=== PATIENT | female | born 1995 | race Caucasian/White ===

== ENCOUNTER 2024-06-17 14:10 | Outpatient (OUT) | payer OTHER, SELFPAY ==
--- NOTE | 2024-06-17 14:13 | US_ITS ---
[address] [address] Patient Name: CANDIE ESPARZA MRN: [id number] date: 1995 Sex: F Assigned Patient Location: [facility] Current Patient Location: [facility] Accession/Order Number: [id number] Exam Date: 06/17/2024 14:15 Report Date: 06/17/2024 15:10 At the request of: TAMMY OWUSU Procedure: US OB transvaginal EXAMINATION: US OB transvaginal HISTORY: MISSED MENSES COMPARISON: No relevant comparison available. FINDINGS: Diallo intrauterine gestation Gestational sac: 5.6 cm, 11 weeks 5 days CRL: 5.19 cm, 6 days Yolk sac: 6.3 mm Heart rate: 165 beats minute Cervix: Closed, 4.8 cm The uterus is normal, anteverted, anteflexed The ovaries are normal. Left corpus luteal cyst Clinical age: 11 weeks 4 days Clinical [place]: 01/02/2025 Ultrasound age: 11 weeks 6 days Ultrasound [place]: 12/31/2024 US/US OB transvaginal IMPRESSION: Viable diallo intrauterine gestation measuring 11 weeks 6 days Electronically authenticated by: TOM DAVIS Date: 06/17/2024 15:10
== END 2024-06-17 14:11 | disposition home or self-care (01) ==
LOC: NOMS 14:10
PROVIDERS: Visit Provider Obstetrics & Gynecology
DX: Z34.91 Encounter for supervision of normal pregnancy, unspecified, first trimester (principal); Z3A.11 11 weeks gestation of pregnancy; N92.6 Irregular menstruation, unspecified
CPT/HCPCS: 76817

== ENCOUNTER 2024-07-21 19:16 | Outpatient (REF) | payer OTHER, SELFPAY ==
--- OUTSIDE RECORDS SUMMARY | 2024-07-21 19:19 | XMS_ITS | CCD ---
Author Organization [facility] Care Team Providers Care Cab Worker Name Role Phone Unavailable Primary Care Provider Unavailabl e Medications Current Medications Medication Drug Class(es) Dates Sig (Normalized) Sig (Original) chlorhexidine gluconate 1.2 mg/ml mouthwash (2 sources) Start: 01-08-2024 take 15 mL by mouth twice daily chlorhexidine (Peridex) 0.12 % solution SWISH AND SPIT 15ML BY MOUTH TWICE DAILY DIRECTED 01/08/2024 Active Problems Problem Classification Problem Date Documented Da te Episodic/Chronic Menstrual disorders (2 sources) Missed period; Translations: [Irregular menstruation, unspecified] 06-17-2024 Chronic Other and delivery including normal (4 sources) ; Translations: [Encounter for supervision of normal , unspecified, unspecified trimester] 06-17-2024 Episodic Residual codes; unclassified (2 sources) Gestation period, 11 weeks; Translations: [11 weeks gestation of ] 06-17-2024 Episodic Vital Signs Date Time Vital Sign Value Performing Clinician Andrea church 06-17-2024 15:43-0500 Body weight 68.04 kg Herbert Kevin DO Work Phone: [facility] 06-17-2024 15:43-0500 Diastolic blood pressure 72 mm[Hg] Herbert Kevin DO Work Phone: [facility] 06-17-2024 15:43-0500 Systolic blood pressure 118 mm[Hg] Herbert Kevin DO Work Phone: [facility] Encounters Encounter Date Encounter Type Care Provider Facility Start: 06-17-2024 End: 06-17-2024 ambulatory Herbert Kevin DO Work Phone: Not Available Comment on above: GA: 11w4d Plan of Treatment Date Care Activity Detail Author Start: 07-21-2024 End: 07-21-2024 Patient encounter procedure 07/21/2024 3:20 PM EST Routine [facility] [address] [place] [id number] Herbert Brown DO [address] [place] [address] [facility] Start: 06-17-2024 End: 06-17-2025 ABO/Rh ABO/Rh Lab Routine Missed menses , unspecified gestational age Expected: 06/17/2024 (Approximate), Expires: 06/17/2025 [facility] Comment on above: Expected: 06/17/2024 (Approximate), Expires: 06/17/2025 Start: 06-17-2024 End: 06-17-2025 Blood type and Indirect antibody screen panel - Blood Type and screen Lab Routine Missed menses , unspecified gestational age Expected: 06/17/2024 (Approximate), Expires: 06/17/2025 [facility] Work Phone: Comment on above: Expected: 06/17/2024 (Approximate), Expires: 06/17/2025 Start: 06-17-2024 End: 06-17-2025 Drugs of abuse panel - Urine by Screen method Rapid drug screen, urine Lab Routine , unspecified gestational age Encounter for supervision of normal first in first trimester Expected: 06/17/2024 (Approximate), Expires: 06/17/2025 [facility] Comment on above: Expected: 06/17/2024 (Approximate), Expires: 06/17/2025 Start: 06-17-2024 End: 06-17-2025 US Pelvis transvaginal US OB transvaginal Imaging Routine Missed menses Expected: 06/17/2024 (Approximate), Expires: 06/17/2025 [facility] Comment on above: Expected: 06/17/2024 (Approximate), Expires: 06/17/2025 CBC W Auto Different ial panel - Blood CBC and differential Lab Routine Missed menses , unspecified gestational age Ordered: 06/17/2024 [facility] Comment on above: Ordered: 06/17/2024 Hemoglobin A1c/Hemoglobin.total in Blood Hemoglobin A1c Lab Routine Missed menses , unspecified gestational age Ordered: 06/17/2024 [facility] Comment on above: Ordered: 06/17/2024 Hepatitis B virus surface Ag [Presence] in Serum or Plasma by Immunoassay Hepatitis B surface antigen Lab Routine Missed menses , unspecified gestational age Ordered: 06/17/2024 [facility] Comment on above: Ordered: 06/17/2024 Hepatitis C virus Ab [Presence] in Serum or Plasma by Immunoassay Hepatitis C antibody Lab Routine Missed menses , unspecified gestational age Ordered: 06/17/2024 [facility] Comment on above: Ordered: 06/17/2024 HIV-1/HIV-2 antigen/antibody combination immunoassay HIV-1 and HIV-2 antibodies Lab Routine Missed menses , unspecified gestational age Ordered: 06/17/2024 [facility] Comment on above: Ordered: 06/17/2024 Reagin Ab [Presence] in Serum by RPR RPR Lab Routine Missed menses , unspecified gestational age Ordered: 06/17/2024 [facility] Comment on above: Ordered: 06/17/2024 Rubella antibody, IgG Rubella an tibody, IgG Lab Routine Missed menses , unspecified gestational age Ordered: 06/17/2024 [facility] Comment on above: Ordered: 06/17/2024 Payers Date Payer Category Payer [facility] Insurance [facility] [id number] 2023 Unknown [id number] 1995 Unknown [id number] Social History Date Type Detail Facility Tobacco smoking stat [facility] Tobacco smoking consumption unknown [facility] Start: 04-11-2024 [facility] Start: 1995 Sex assigned at Female [facility] Start: 06-16-2024 Gender identity Identifies as female gender (finding) [facility] Start: 06-16-2024 Sexual orientation Heterosexual (fin ding) [facility] History of Present illness Narrative 06-17-2024 Whit Bourgeois MA - 06/17/2024 2:30 PM EST Note Date & Type Note Facility 06-17-2024 History of Presen t illness Narrative Reason for Appointment: Patient ID: Vanessa Menon is a 28 y.o. female who presents for Amenorrhea Patient presents today for a Nurse OB Intake appointment. Patient is 11w4d with a Estimated Date of Delivery: 01/02/25 OB History Para Term AB Living 1 SAB IAB Ectopic Multiple Live Births # Outcome Date GA Lbr Josh/2nd Weight Sex Type Anes PTL Lv 1 Current Current Medications: has a current medication list which includes the following prescription(s): chlorhexidine. Medical History: Active Ambulatory Problems Diagnosis Date Noted No Active Ambulatory Problems Resolved Ambulatory Problems Diagnosis Date Noted No Resolved Ambulatory Problems No Additional Past Medical History No family history on file. Social History Tobacco Use Smoking status: Not on file Smokeless tobacco: Not on file Substance Use Topics Alcohol use: Not on file Drug use: Not on file History reviewed. No pertinent surgical history. No Known Allergies Vitals: There is no height or weight on file to calculate BMI. BP: 118/72 Patient's last menstrual period was 03/28/2024. Assessment/Plan Diagnoses and all orders for this visit: Missed menses - Type and screen; Future - ABO/Rh; Future - CBC and differential - Hemoglobin A1c - RPR - Rubella antibody, IgG - Hepatitis B surface antigen - Hepatitis C antibody - HIV-1 and HIV-2 antibodies - Urine culture - OB transvaginal; Future - POCT , urine manually resulted - POCT urinalysis dipstick manually resulted 11 weeks gestation of , unspecified gestational age - Type and screen; Future - ABO/Rh; Future - CBC and differential - Hemoglobin A1c - RPR - Rubella antibody, IgG - Hepatitis B surface antigen - Hepatitis C antibody - HIV-1 and HIV-2 antibodies - Rapid drug screen, urine; Future Encounter for supervision of normal first in first trimester - Rapid drug screen, urine; Future Nurse Note: OB Intake: Patient presents today for first OB visit. Patients history has been reviewed in great detail including any potential risks. Patient signed consent forms and patient desires testing in both trimesters. Patient currently has no complaints and has been advised to drink 6-8 glasses of water a day, eat no raw or undercooked meat, and stay away from [facility]. Patient has also been advised to not change litter boxes and eat 6 small meals a day. Patient has been consulted regarding the do's and don'ts of . Patient was given labs and all questions and concerns were answered. Follow Up: Patient is to return in 4 weeks for routine OB appointment. Follow Up: Patient is to have labs drawn at directed and return to office for initial OB appointment with provider. Patient may call office as needed with any concerns or questions. Nurse Visit Completed by: Whit Bourgeois MA documented in this encounter [facility] Evaluation note Note Date & Type Note Facility Evaluation note Diagnosis Missed menses 11 weeks gestation of , unspecified gestational age Encounter for supervision of normal first in first trimester documented in this encounter [facility] Summary Purpose Family History No Family History Records Found Advance Directives No Advanced Directives Records Found Additional Source Comments INFORMATION SOURCE (unrecogn ized section and content) DATE CREATED AUTHOR 06/21/2024 [facility] Reason for Visit (unrecogniz ed section and content) Reason Comments Amenorrhea FOR RECORDS PERTAINING TO PATIENTS WHO ARE OR HAVE BEEN ENROLLED IN A CHEMICAL DEPENDENCY/SUBSTANCEABUSE PROGRAM, SOME INFORMATION MAY BE OMITTED. This clinical summary was aggregated from multiple sources. Caution should be exercised in using it in the provision of clinical care. This summary normalizes information from multiple sources, and as a consequence, information in this document may materially change the coding, format and clinical context of patient data. In addition, data may be omitted in some cases. CLINICAL DECISIONS SHOULD BE BASED ON THE PRIMARY CLINICAL RECORDS. [facility]. provides no warranty or guarantee of the accuracy or completeness of information in this document.
[2024-07-27 17:07] LABS: Age Gdln ACOG Testing Note (.); IGP, rfx Aptima HPV ASCU Note (.)
== END 2024-07-21 19:17 | disposition home or self-care (01) ==
LOC: LAB 19:16
PROVIDERS: Visit Provider Obstetrics & Gynecology
DX: Z01.419 Encounter for gynecological examination (general) (routine) without abnormal findings (principal)
CPT/HCPCS: 88175

== ENCOUNTER 2024-08-20 15:22 | Outpatient (OUT) | payer OTHER, SELFPAY ==
--- OUTSIDE RECORDS SUMMARY | 2024-08-20 15:26 | XMS_ITS | CCD ---
Author Organization [facility] Care Team Providers Care Forging Die Sinker Name Role Phone Unavailable Primary Care Provider TAMMY Jain Attending Unavailable Medications Completed/Discontinued Medications Medication Drug Class(es) Dates Sig (Normalized) Sig (Original) chlorhexidine gluconate 1.2 mg/ml mouthwash (10 sources) Start: 01-08-2024 End: 08-18-2024 take 15 mL by mouth twice daily chlorhexidine (Peridex) 0.12 % solution SWISH AND SPIT 15ML BY MOUTH TWICE DAILY DIRECTED 01/08/2024 08/18/2024 Discontinued Problems Problem Classification Problem Date Documented Da te Episodic/Chronic Immunizations and screening for infectious disease (2 sources) Exposure to sexually transmissible disorder; Translations: [Contact with and (suspected) exposure to infections with a predominantly sexual mode of transmission] 07-21-2024 Episodic Menstrual disorders (2 sources) Missed period; Translations: [Irregular menstruation, unspecified] 06-17-2024 Chronic Other female genital disorders (2 sources) Vaginal discharge; Translations: [Other specified noninflammatory disorders of vagina] 07-21-2024 Episodic Other and delivery including normal (8 sources) ; Translations: [Encounter for supervision of normal , unspecified, unspecified trimester] 06-17-2024 Episodic Other screening for suspected conditions (not mental disorders or infectious disease) (2 sources) Patient encounter status; Translations: [Encounter for other specified screening] 07-21-2024 Episodic Residual codes; unclassified (2 sources) Gestation period, 11 weeks; Translations: [11 weeks gestation of ] 06-17-2024 Episodic Residual codes; unclassified (2 sources) Gestation period, 16 weeks; Translations: [16 weeks gestation of ] 07-21-2024 Episodic Residual codes; unclassified (2 sources) Gestation period, 20 weeks; Translations: [20 weeks gestation of ] 08-18-2024 Episodic Results Test Name Value Interpretation Reference Range Facility Urinalysis macro (dipstick) panel (U)on 08-18-2024 Bilirubin, UA Negative Negative - 4(70) +++ mg/dL [facility] Blood, UA Negative Negative - 50 Ayaz/mcL [facility] Clarity, UA Clear [facility] re Color, UA Yellow [facility] Gl[facility], [facility] Negative Negative - 1999(110) ++++ mg/dL [facility] Interpretation and review of laboratory results Abnormal [facility] Ketones, UA Positive Negative - 160(16) ++++ mg/dL [facility] Leukocytes, UA Trace Negative - 500+++ Marcell/mcL [facility] Nitrite, UA Negative Negative - Positive [facility] pH, UA 6.5 5 - 9 [facility] e Protein, UA Negative Negative - 1999(20) ++++ mg/dL [facility] Spec Grav, UA 1.025 1 - 1.[address] [facility] Urobilinogen, UA 0.2 0.2 - 12 mg/dL [facility] IGP,APTIMA HPV,AGE GDLNon AGE GDLN ACOG TESTING Note . [facility] Comment on above: TESTS RESULT FLAG UN ITS REF RANGE LAB Clinician Provided Cytology Information Source.............Cervix No. of containers..01 ThinPrep Vial Age Algo ACOG Mari... FLAG LEGEND: L-Low Normal,H-High Normal,LL-Alert Low,HH-Alert High <-Panic Low,>-Panic High,A-Abnormal,AA-Critical Abnormal Performed at: 01 =[facility] [address] [place] [address] Melba Leal MD, IGP, RFX APTIMA HPV ASCU Note . [facility] Comment on above: TESTS RESULT FLAG UN ITS REF RANGE LAB DIAGNOSIS: 02 NEGATIVE FOR INTRAEPITHELIAL LESION OR MALIGNANCY. Specimen adequacy: 02 Satisfactory for evaluation. Endocervical and/or squamous metaplastic cells (endocervical component) are present. Performed by: 02 Imelda Vee, Manager Switch ([facility]) . 02 Note: Note 02 The Pap smear is a screening test designed to aid in the detection of premalignant and malignant conditions of the uterine cervix. It is not a diagnostic procedure and should not be used as the sole means of detecting cervical cancer. Both false-positive and false-negative reports do occur. Test Methodology: Note 02 This liquid based ThinPrep(R) pap test was screened with the use of an image guided system. . 02 The HPV DNA reflex criteria were not met with this specimen result therefore, no HPV testing was performed. FLAG LEGEND: L-Low Normal,H-High Normal,LL-Alert Low,HH-Alert High <-Panic Low,>-Panic High,A-Abnormal,AA-Critical Abnormal Performed at: [address] [address] Melba Leal MD, Performed at: = - [facility] [id number] Environmental Services Attendant: Melba Leal MD, Phone: [phone] Performed at: [address] [id number] Environmental Services Attendant: Melba Leal MD, Phone: [phone] SP[facility] e RECURRENT VAGINITIS (HTRX)on 07-23-2024 ATOPOBIUM VAGINAE 21.785 Abnormal [facility] ATOPOBIUM VAGINAE Detected Abnormal [facility] BVAB 2,3 (BACTERIAL VAGINOSIS ASSOCIATED BACTERIA 2, 3); MOBILUNCUS SPP 10.615 Abnormal [facility] BVAB 2,3 (BACTERIAL VAGINOSIS ASSOCIATED BACTERIA 2, 3); MOBILUNCUS SPP Detected Abnormal [facility] MOLINA ALBICANS, PARAPSILOSIS, TROPICALIS 0 [facility] MOLINA ALBICANS, PARAPSILOSIS, TROPICALIS Not detected [facility] GLABRATA [facility] MOLINA GLABRATA Not detected [facility]althcare MOLINA KRUSEI 0 [facility] hcare MOLINA KRUSEI Not detected [facility] CHLAMYDIA TRACHOMATIS 0 [facility] CHLAMYDIA TRACHOMATIS Not detected [facility] ERMB, C; MEFA 16.03 Abnormal [facility] Health care ERMB, C; MEFA Detected Abnormal [facility] care GARDNERELLA VAGINALIS 24.033 Abnormal [facility] GARDNERELLA VAGINALIS Detected Abnormal [facility] Interpretation and review of laboratory results Abnormal [facility] Healthcare MEGASPHAERA (TYPES 1, 2) 0 [facility] MEGASPHAERA (TYPES 1, 2) Not detected [facility] MYCOPLASMA GENITALIUM 0 [facility] Not [facility] NEISSERIA GONORRHOEAE 0 [facility] NEISSERIA GONORRHOEAE Not detected [facility] TET B, TET M 18.821 Abnormal [facility] are TET B, TET M Detected Abnormal [facility] Healthc are TRICHOMONAS VAGINALIS 0 [facility] TRICHOMONAS VAGINALIS Not detected [facility] Vital Signs Date Time Vital Sign Value Performing Clinician Andrea church 08-18-2024 15:52-0500 Body weight 70.94 kg Imelda SIMMONS Work Phone: [facility] 08-18-2024 15:52-0500 Diastolic blood pressure 70 mm[Hg] Imelda SIMMONS Work Phone: [facility] 08-18-2024 15:52-0500 Systolic blood pressure 120 mm[Hg] Imelda SIMMONS Work Phone: [facility] 07-21-2024 16:07-0500 Body weight 69.31 kg Tammy Kevin DO Work Phone: [facility] 07-21-2024 16:07-0500 Diastolic blood pressure 72 mm[Hg] Tammy Kevin DO Work Phone: [facility] 07-21-2024 16:07-0500 Systolic blood pressure 110 mm[Hg] Atmmy Kevin DO Work Phone: [facility] 06-17-2024 15:43-0500 Body weight 68.04 kg Tammy Kevin DO Work Phone: [facility] 06-17-2024 15:43-0500 Diastolic blood pressure 72 mm[Hg] Tammy Kevin DO Work Phone: [facility] 06-17-2024 15:43-0500 Systolic blood pressure 118 mm[Hg] Tammy Kevin DO Work Phone: [facility] Healthcare Encounters Encounter Date Encounter Type Care Provider Facility Start: 08-18-2024 End: 08-18-2024 flow sheet Imelda SIMMONS Work Phone: [facility] Comment on above: 20 weeks gestation o f ; Second trimester Start: 08-18-2024 End: 08-18-2024 Bamboo flowsheet Imelda SIMMONS Work Phone: [facility] Start: 08-18-2024 End: 08-18-2024 Bamboo flowsheet Imelda SIMMONS Work Phone: [facility] Start: 07-22-2024 End: 07-23-2024 External Result Encounter Imelda SIMMONS Work Phone: [facility] External Department Unsolicited Start: 07-22-2024 End: 07-23-2024 External Result Encounter Imelda SIMMONS Work Phone: [facility] External Department Unsolicited Start: 07-21-2024 End: 07-21-2024 Patient encounter procedure Tammy Kevin DO Work Phone: [facility] Healthcare Start: 07-21-2024 End: 07-21-2024 Periodic preventive med est patient 18-39 yrs Tammy Kevin DO Work Phone: [facility] Comment on above: Screening, , for anatomic survey; Well woman exam with routine gynecological exam; Second trimester ; 16 weeks gestation of ; Vaginal discharge; STD exposure Start: 07-21-2024 End: 07-21-2024 ambulatory TAMMY KEVIN Not Available Start: 07-21-2024 End: 07-21-2024 Bamboo flowsheet Tammy Kevin DO Work Phone: [facility] Start: 07-21-2024 End: 07-27-2024 Bamboo flowsheet Tammy Kevin DO Work Phone: [facility] Start: 07-21-2024 End: 07-27-2024 [facility] Result Encounter Tammy Kevin DO Work Phone: [facility] External Department Unsolicited Start: 06-17-2024 End: 06-17-2024 ambulatory Tammy Kevin DO Work Phone: [facility] Comment on above: GA: 11w4d Procedures Date Procedure Procedure Detail Performing Clinician Start: 08-18-2024 Urnls dip stick/tabl et rgnt non-auto w/o micrscp Imelda SIMMONS Work Phone: Start: 07-22-2024 RECURRENT VAGINITIS (HTRX) Imelda SIMMONS Work Phone: Start: 01-22-2025 IGP,APTIMA HPV,AGE GDLN Tammy Kevin DO Work Phone: Plan of Treatment Date Care Activity Detail Author Start: 09-15-2024 End: 09-15-2024 Patient encounter procedure 09/15/2024 3:30 PM EDT Routine [facility] [address] [place] [address] Tammy Brown, DO [address] [place] [address] [facility] Start: 08-18-2024 End: 08-18-2024 Patient encounter procedure [facility] Comment on above: Arrived Start: 07-21-2024 End: 07-21-2024 Patient encounter procedure [facility] Comment on above: Arrived Start: 07-21-2024 End: 01-18-2025 Alpha fetoprotein, maternal Alpha fetoprotein, maternal Lab Routine Second trimester 16 weeks gestation of Expected: 07/21/2024 (Approximate), Expires: 01/18/2025 [facility] Comment on above: Expected: 07/21/2024 (Approximate), Expires: 01/18/2025 Start: 07-21-2024 End: 07-21-2025 US for US OB 14+ weeks anatomy scan Imaging Routine Screening, , for anatomic survey Expected: 07/21/2024, Expires: 07/21/2025 [facility] Comment on above: Expected: 07/21/2024 , Expires: 07/21/2025 Start: 06-17-2024 End: 06-17-2025 ABO/Rh ABO/Rh Lab Routine Missed menses , unspecified gestational age Expected: 06/17/2024 (Approximate), Expires: 06/17/2025 [facility] Comment on above: Expected: 06/17/2024 (Approximate), Expires: 06/17/2025 Start: 06-17-2024 End: 06-17-2025 Blood type and Indirect antibody screen panel - Blood Type and screen Lab Routine Missed menses , unspecified gestational age Expected: 06/17/2024 (Approximate), Expires: 06/17/2025 [facility] Work Phone: Comment on above: Expected: 06/17/2024 (Approximate), Expires: 06/17/2025 Start: 06-17-2024 End: 06-17-2025 Drugs of abuse panel - Urine by Screen method Rapid drug screen, urine Lab Routine , unspecified gestational age Encounter for supervision of normal first in first trimester Expected: 06/17/2024 (Approximate), Expires: 06/17/2025 [facility] Comment on above: Expected: 06/17/2024 (Approximate), Expires: 06/17/2025 Start: 06-17-2024 End: 06-17-2025 US Pelvis transvaginal US OB transvaginal Imaging Routine Missed menses Expected: 06/17/2024 (Approximate), Expires: 06/17/2025 [facility] Comment on above: Expected: 06/17/2024 (Approximate), Expires: 06/17/2025 CBC W Auto Different ial panel - Blood CBC and differential Lab Routine Missed menses , unspecified gestational age Ordered: 06/17/2024 [facility] Comment on above: Ordered: 06/17/2024 CHLAMYDIA TRACHOMATI S (GENITO/STI) CHLAMYDIA TRACHOMATIS (GENITO/STI) Lab Routine STD exposure Ordered: 07/21/2024 [facility] Comment on above: Ordered: 07/21/2024 Cytology Cervical or vaginal smear or scraping study Pap Smear Pathology and Cytology Routine Well woman exam with routine gynecological exam Ordered: 07/21/2024 [facility] Comment on above: Ordered: 07/21/2024 Hemoglobin A1c/Hemoglobin.total in Blood Hemoglobin A1c Lab Routine Missed menses , unspecified gestational age Ordered: 06/17/2024 [facility] Comment on above: Ordered: 06/17/2024 Hepatitis B virus surface Ag [Presence] in Serum or Plasma by Immunoassay Hepatitis B surface antigen Lab Routine Missed menses , unspecified gestational age Ordered: 06/17/2024 [facility] Comment on above: Ordered: 06/17/2024 Hepatitis C virus Ab [Presence] in Serum or Plasma by Immunoassay Hepatitis C antibody Lab Routine Missed menses , unspecified gestational age Ordered: 06/17/2024 [facility] Comment on above: Ordered: 06/17/2024 HIV-1/HIV-2 antigen/antibody combination immunoassay HIV-1 and HIV-2 antibodies Lab Routine Missed menses , unspecified gestational age Ordered: 06/17/2024 [facility] Comment on above: Ordered: 06/17/2024 Neisseria gonorrhoea e DNA [Presence] in Unspecified specimen by SRINIVASAN with probe detection Neisseria gonorrhea DNA probe, direct Lab Routine STD exposure Ordered: 07/21/2024 [facility] Comment on above: Ordered: 07/21/2024 Reagin Ab [Presence] in Serum by RPR RPR Lab Routine Missed menses , unspecified gestational age Ordered: 06/17/2024 [facility] Comment on above: Ordered: 06/17/2024 Rubella antibody, IgG Rubella an tibody, IgG Lab Routine Missed menses , unspecified gestational age Ordered: 06/17/2024 [facility] Comment on above: Ordered: 06/17/2024 SURESWAB(R) ADVANCED VAGINITIS PLUS, TMA SURESWAB(R) ADVANCED VAGINITIS PLUS, TMA Pathology and Cytology Routine Vaginal discharge Ordered: 07/21/2024 [facility] Work Phone: Comment on above: Ordered: 07/21/2024 Payers Date Payer Category Payer Private Health Insurance [facility] [id number] 2023 Unknown [id number] 1996 Unknown [id number] 1996 Unknown [id number] Social History Date Type Detail Facility Tobacco smoking stat [facility] Tobacco smoking consumption unknown [facility] Start: 04-11-2024 [facility] Start: 1996 Sex assigned at Female [facility] Start: 06-16-2024 Gender identity Identifies as female gender (finding) [facility] Start: 06-16-2024 Sexual orientation Heterosexual (fin ding) [facility] History of Present illness Narrative 08-18-2024 TROY Mi - 08/18/2024 3:30 PM EST Note Date & Type Note Facility 08-18-2024 History of Presen t illness Narrative Reason for Appointment: Patient ID: Vanessa Menon is a 28 y.o. female who presents for No chief complaint on file. Patient presents today for Return OB appointment. MEDICATIONS No current outpatient medications ALLERGIES No Known Allergies PROBLEMS Active Ambulatory Problems Diagnosis Date Noted No Active Ambulatory Problems Resolved Ambulatory Problems Diagnosis Date Noted No Resolved Ambulatory Problems No Additional Past Medical History HISTORY PAST MEDICAL HISTORY SOCIAL HISTORY History reviewed. No pertinent past medical history. Social History Tobacco Use Smoking status: Not on file Smokeless tobacco: Not on file Substance Use Topics Alcohol use: Not on file Drug use: Not on file FAMILY HISTORY No family history on file. SURGICAL HISTORY History reviewed. No pertinent surgical history. REVIEW OF SYSTEMS Review of Systems: Review of Systems Constitutional: Negative. HENT: Negative. Eyes: Negative. Respiratory: Negative. Cardiovascular: Negative. Gastrointestinal: Negative. Genitourinary: Negative. Musculoskeletal: Negative. Skin: Negative. Neurological: Negative. All other systems reviewed and are negative. Hematological: Negative. Endocrine: Negative. Allergic/Immunologic: Negative. OBJECTIVE Objective: Physical Exam Constitutional: Appearance: Normal appearance. She is normal weight. HENT: Head: Normocephalic. Cardiovascular: Rate and Rhythm: Normal rate. Pulses: Normal pulses. Pulmonary: Effort: Pulmonary effort is normal. Breath sounds: Normal breath sounds. Abdominal: Palpations: Abdomen is soft. Musculoskeletal: General: Normal range of motion. Neurological: General: No focal deficit present. Mental Status: She is alert and oriented to person, place, and time. Psychiatric: Mood and Affect: Mood normal. Behavior: Behavior normal. Thought Content: Thought content normal. Judgment: Judgment normal. Vitals and nursing note reviewed. Vitals: There is no height or weight on file to calculate BMI. BP: 120/70 Patient's last menstrual period was 03/28/2024. ASSESSMENT & PLAN ICD-10-CM 1. 20 weeks gestation of Z3A.20 POCT urinalysis dipstick manually resulted 2. Second trimester Z34.92 POCT urinalysis dipstick manually resulted Return OB: Patient presents today for a routine obstetrics appointment. Patient is currently 20w3d . Patient states she is doing well but has complaints of being tired due to current . Patient has verbalizes frequent movement. Patient reminded to get initial labs, msafp and anatomy scan completed Orders Placed This Encounter Procedures POCT urinalysis dipstick manually resulted Follow Up: Patient is to return to office in 4 week for routine OB appointment. Documented by TROY Mi on behalf of: TROY Mi documented in this encounter [facility] History of Present illness Narrative 07-21-2024 Nataly Sexton LPN - 07/21/2024 3:20 PM EST Note Date & Type Note Facility 07-21-2024 History of Presen t illness Narrative Reason for Appointment: Patient ID: Vanessa Menon is a 28 y.o. female who presents for Routine Visit, STI Screening, and Gynecologic Exam Patient presents today for Return OB appointment. MEDICATIONS Current Outpatient Medications Medication Instructions chlorhexidine (Peridex) 0.12 % solution SWISH AND SPIT 15ML BY MOUTH TWICE DAILY DIRECTED ALLERGIES No Known Allergies PROBLEMS Active Ambulatory Problems Diagnosis Date Noted No Active Ambulatory Problems Resolved Ambulatory Problems Diagnosis Date Noted No Resolved Ambulatory Problems No Additional Past Medical History HISTORY PAST MEDICAL HISTORY SOCIAL HISTORY No past medical history on file. Social History Tobacco Use Smoking status: Not on file Smokeless tobacco: Not on file Substance Use Topics Alcohol use: Not on file Drug use: Not on file FAMILY HISTORY No family history on file. SURGICAL HISTORY No past surgical history on file. REVIEW OF SYSTEMS Review of Systems: Review of Systems Constitutional: Negative. HENT: Negative. Eyes: Negative. Respiratory: Negative. Cardiovascular: Negative. Gastrointestinal: Negative. Genitourinary: Negative. Musculoskeletal: Negative. Skin: Negative. Neurological: Negative. All other systems reviewed and are negative. Hematological: Negative. Endocrine: Negative. Allergic/Immunologic: Negative. OBJECTIVE Objective: Physical Exam Constitutional: Appearance: Normal appearance. She is well-developed. Genitourinary: Vulva normal. Breasts: Breasts are soft. Right: Normal. Left: Normal. Cardiovascular: Rate and Rhythm: Normal rate and regular rhythm. Pulmonary: Effort: Pulmonary effort is normal. Breath sounds: Normal breath sounds. Abdominal: General: Bowel sounds are normal. There is no distension. Palpations: Abdomen is soft. Tenderness: There is no abdominal tenderness. There is no guarding or rebound. Musculoskeletal: General: No swelling. Normal range of motion. Right lower leg: No edema. Left lower leg: No edema. Neurological: Mental Status: She is alert and oriented to person, place, and time. Skin: General: Skin is warm and dry. Psychiatric: Mood and Affect: Mood normal. Behavior: Behavior normal. Vitals and nursing note reviewed. Exam conducted with a consulting hr professional present. Vitals: There is no height or weight on file to calculate BMI. BP: 110/72 Patient's last menstrual period was 03/28/2024. ASSESSMENT & PLAN ICD-10-CM 1. Screening, , for anatomic survey Z36.89 US OB 14+ weeks anatomy scan 2. Well woman exam with routine gynecological exam Z01.419 Pap Smear 3. Second trimester Z34.92 Alpha fetoprotein, maternal Alpha fetoprotein, maternal 4. 16 weeks gestation of Z3A.16 Alpha fetoprotein, maternal Alpha fetoprotein, maternal 5. Vaginal discharge N89.8 SURESWAB(R) ADVANCED VAGINITIS PLUS, TMA 6. STD exposure Z20.2 CHLAMYDIA TRACHOMATIS (GENITO/STI) Neisseria gonorrhea DNA probe, direct Return OB/Annual Exam: Patient presents today for a annual exam/routine obstetrics appointment. Patient is currently 16w3d . Patient states she is doing well but has complaints of nausea in the morning. Pap and cultures was obtained without difficulty and patient was given orders for anatomy scan and msAFP to be obtained. Orders Placed This Encounter Procedures US OB 14+ weeks anatomy scan CHLAMYDIA TRACHOMATIS (GENITO/STI) Neisseria gonorrhea DNA probe, direct Alpha fetoprotein, maternal Follow Up: Patient is to schedule annual exam for next year and return to office in 4 weeks for OB appointment. Documented by Nataly Sexton LPN on behalf of: Tammy Brown DO documented in this encounter [facility] History of Present illness Narrative 06-17-2024 [...] and HIV-2 antibodies - Urine culture - US OB transvaginal; Future - POCT , urine [...] or undercooked meat, and stay away from [facility]. Patient has also been advised to not [...] Whit Bourgeois MA documented in this encounter [facility] Evaluation note Note Date & Type Note Facility Evaluation note Diagnosis Missed menses 11 weeks gestation of , unspecified gestational age Encounter for supervision of normal first in first trimester documented in this encounter [facility] Evaluation note Note Date & Type Note Facility Evaluation note Diagnosis Screening, , for anatomic survey Encounter for anatomic survey Well woman exam with routine gynecological exam Routine gynecological examination Second trimester state, incidental 16 weeks gestation of Vaginal discharge Leukorrhea, not specified as infective STD exposure documented in this encounter [facility] Evaluation note Note Date & Type Note Facility Evaluation note Diagnosis 20 weeks gestation of Second trimester state, incidental documented in this encounter [facility] Summary Purpose Family History No Family History Records Found Advance Directives No Advanced Directives Records Found Additional Source Comments Reason for Visit (unrecogniz ed section and content) Reason Comments Amenorrhea Reason Comments Routine Visit STI Screening Gynecologic Exam INFORMATION SOURCE (unrecogn ized section and content) DATE CREATED AUTHOR 07/23/2024 [facility] EPIC FOR RECORDS PERTAINING TO PATIENTS WHO ARE [...] BE BASED ON THE PRIMARY CLINICAL RECORDS. [facility]. provides no warranty or guarantee of the accuracy or completeness of information in this document.
--- NOTE | 2024-08-20 15:43 | US_ITS ---
The [address] [address] Patient Name: CANDIE ESPARZA MRN: [facility]:[id number] date: 1995 Sex: F Assigned Patient Location: LAB Current Patient Location: LAB Accession/Order Number: [id number] Exam Date: 08/20/2024 22:30 Report Date: 08/20/2024 22:30 At the request of: TAMMY OWUSU DO Procedure: US OB cervical length OB ultrasound. Reason for exam:Anatomy survey, cervical length Comparison:None. Technique: Transabdominal imaging of the gravid uterus was obtained. Transvaginal imaging was also obtained for evaluation of the cervix. Findings: Single live intrauterine 21 weeks 4 days by anatomic measurements. heart rate 137 bpm. Appropriate growth for dating. Placenta is anterior in location without evidence of previa. Cervical length is normal at 3.72 cm without evidence of funneling. Cranial structures appear unremarkable. No ventriculomegaly. Nasal bone appears present. Four-chamber heart is present. Visualized Abdominal structures are grossly unremarkable. Spine is suboptimally visualized. Visualized portions appear grossly unremarkable. Three-vessel cord is noted. 4 extremities are noted. US/US OB cervical length Impression: Spine suboptimally visualized due to positioning. Otherwise, unremarkable survey. Cervical length measuring 3.7 cm without evidence of funneling. Impression dictated by: Don Braun Jr., D.O.08/20/2024 10:30 PM Dictation Location: [facility] [employer] Electronically authenticated by: [id number] Y Date: 08/20/2024 22:30
--- NOTE | 2024-08-20 15:43 | US_ITS ---
The [address] [address] Patient Name: CANDIE ESPARZA MRN: [id number] date: 1995 Sex: F Assigned Patient Location: LAB Current Patient Location: LAB Accession/Order Number: [id number] Exam Date: 08/20/2024 22:19 Report Date: 08/20/2024 22:29 At the request of: TAMMY OWUSU DO Procedure: US OB anatomy OB ultrasound. Reason for exam:Anatomy survey, cervical length Comparison:None. Technique: Transabdominal imaging of the gravid uterus was obtained. Transvaginal imaging was also obtained for evaluation of the cervix. Findings: Single live intrauterine 21 weeks 4 days by anatomic measurements. heart rate 137 bpm. Appropriate growth for dating. Placenta is anterior in location without evidence of previa. Cervical length is normal at 3.72 cm without evidence of funneling. Cranial structures appear unremarkable. No ventriculomegaly. Nasal bone appears present. Four-chamber heart is present. Visualized Abdominal structures are grossly unremarkable. Spine is suboptimally visualized. Visualized portions appear grossly unremarkable. Three-vessel cord is noted. 4 extremities are noted. US/US OB anatomy Impression: Spine suboptimally visualized due to positioning. Otherwise, unremarkable survey. Cervical length measuring 3.7 cm without evidence of funneling. Impression dictated by: Don Braun Jr., D.O.08/20/2024 10:29 PM Dictation Location: [facility] [employer] Electronically authenticated by: [id number] Y Date: 08/20/2024 22:29
[2024-08-20 15:53] LABS: Basophils Percent Auto 0.2 % (0.2-2.0); Eosinophils Absolute Auto 0.1 10^3/uL (0.0-0.7); Eosinophils Percent Auto 0.6 % (0.9-7.0); Hemoglobin 10.9 g/dL (12.0-16.0); Immature Granulocytes Abs Auto 0.05 10^3/uL (0.00-0.03); Immature Granulocytes Pct Auto 0.4 % (0.0-0.5); Lymphocytes Absolute Auto 1.4 10^3/uL (1.2-3.8); Lymphocytes Percent Auto 11.3 % (20.5-60.0); Mean Corpuscular HGB Conc 34.1 g/dL (29.9-35.2); Mean Corpuscular Hemoglobin 30.4 pg (26.7-34.0); Mean Corpuscular Volume 89.1 fL (81.0-99.0); Mean Platelet Volume 9.9 fL (9.5-13.5); Monocytes Absolute Auto 0.7 10^3/uL (0.3-0.8); Monocytes Percent Auto 5.6 % (1.7-12.0); Neutrophils Absolute Auto 10.1 10^3/uL (1.4-6.5); Neutrophils Percent Auto 81.9 % (43.0-75.0); Platelet Count 275 10^3/uL (150-450); Red Blood Count 3.59 10^6/uL (4.20-5.40); Red Cell Distribution Width 12.5 % (11.0-15.0); White Blood Count 12.4 10^3/uL (4.0-11.0)
[2024-08-20 15:58] LABS: Estimated Average Glucose 103 mg/dL; Glycohemoglobin A1C 5.2 % (4.5-6.2)
[2024-08-20 16:11] LABS: Amphetamine Screen Urine NEGATIVE (NEGATIVE); Barbiturates Screen Urine NEGATIVE (NEGATIVE); Benzodiazepines Screen Urine NEGATIVE (NEGATIVE); Buprenorphine Screen Urine NEGATIVE (NEGATIVE); Cannabinoid Screen Urine NEGATIVE (NEGATIVE); Cocaine Screen Urine NEGATIVE (NEGATIVE); Methadone Screen Urine NEGATIVE (NEGATIVE); Methamphetamines Screen Urine NEGATIVE (NEGATIVE); Opiate Screen Urine NEGATIVE (NEGATIVE); Oxycodone Screen Urine NEGATIVE (NEGATIVE); Phencyclidine Screen Urine NEGATIVE (NEGATIVE); Tricyclic Antidepressant Urine NEGATIVE (NEGATIVE)
[2024-08-22 07:09] LABS: Rubella Antibodies, IgG 2.75 index (Immune >0.99)
[2024-08-22 08:09] LABS: HBsAg Screen Negative (Negative); HCV Ab Non Reactive (Non Reactive)
[2024-08-22 09:09] LABS: HIV Ab/p24 Ag Screen Non Reactive (Non Reactive); Rapid Plasma Reagin, Quant Non Reactive titer (NonRea<1:1)
== END 2024-08-20 15:23 | disposition home or self-care (01) ==
LOC: LAB 15:22
PROVIDERS: Visit Provider Obstetrics & Gynecology
DX: Z34.01 Encounter for supervision of normal first pregnancy, first trimester (principal); Z36.89 Encounter for other specified antenatal screening; Z3A.21 21 weeks gestation of pregnancy; N92.6 Irregular menstruation, unspecified
CPT/HCPCS: 36415; 76805; 76817; 80307; 83036; 85025; 86592; 86762; 86803; 86850; 86900; 86901; 87086; 87340; 87389

== ENCOUNTER 2024-10-12 14:58 | Outpatient (OUT) | payer OTHER, SELFPAY ==
--- OUTSIDE RECORDS SUMMARY | 2024-10-12 15:25 | XMS_ITS | CCD ---
Author Organization [facility] Care Team Providers Care Vacuum System Tester Name Role Phone Unavailable Primary Care Provider TAMMY Jain Attending Unavailable IMELDA MOHAN Attending Unavailable TAMMY BROWN Attending Unavailable TAMMY BROWN Referring Unavailable Medications Completed/Discontinued Medications Medication Drug Class(es) [...] Test Name Value Interpretation Reference Range Facility US OB LIMITED 1+ FETUSESon 0 09-23-2024 US OB LIMITED 1+ FETUSES EXAM: US OB LIMITED 1+ FETUSES HISTORY: Follow up anatomy. COMPARISON: None available. TECHNIQUE: Two-dimensional transabdominal grayscale ultrasound imaging of the pelvis was performed. FINDINGS: Gestation: Single Presentation: Variable Cardiac Activity: 138 beats per minute Placental Location: Anterior with no sonographic abnormalities identified. Amniotic Fluid: Appears adequate ANATOMY C-Spine: Unremarkable T-Spine: Unremarkable L-Spine: Unremarkable Sacrum: Unremarkable IMPRESSION: 1. Single, live intrauterine gestation 25 weeks, 4 days by LMP. VIRGINIE is 01/02/2025. 2. Unremarkable follow up spine. Electronically Signed:Electronically signed by ZENIA ALLISON II, MD, PHD at 23-Sep-2024 11:17:43 PM [facility] Normal Not Available Comment on above: Order Comment: US OB INCOMPLETE ANATOMY Estimated Date of Delivery: 01/02/25 Gestational Age as of 08/24/2024: 21w2d ALL CBC WITH AUTO DIFFon BASOPHILS ABSOLUTE AUTO 0 [facility] Basophils/100 WBC (Bld) 0.2 % 0.2 - 2.0 % [facility] Eosinophils/100 WBC (Bld) 0.6 % Low 0.9 - 7.0 % [facility] Erythrocyte distribution width (RBC) [Ratio] 12.5 % 11.0 - 15.0 % [facility] Hematocrit (Bld) [Volume fraction] 32 % Low 36.0 - 48.0 % [facility] Hem[facility] (Bld) [Mass/Vol] 10.9 g/dL Low 12.0 - 16.0 g/dL [facility] IMMATURE GRANULOCYTES ABS AUTO 0.05 High [facility] Immature granulocytes/100 WBC (Bld) 0.4 % 0.0 - 0.5 % [facility] Interpretation and review of laboratory results Abnormal [facility] LYMPHOCYTES ABSOLUTE AUTO 1.4 [facility] Lymphocytes/100 WBC (Bld) 11.3 % Low 20.5 - 60.0 % [facility] MCH (RBC) [Entitic mass] 30.4 pg 26.7 - 34.0 pg [facility] MCHC (RBC) [Mass/Vol] 34.1 g/dL 29.9 - 35.2 g/dL [facility] MCV (RBC) [Entitic vol] 89.1 fL 81.0 - 99.0 fL [facility] MONOCYTES ABSOLUTE AUTO 0.7 [facility] Monocytes/100 WBC (Bld) 5.6 % 1.7 - 12.0 % [facility] NEUTROPHILS ABSOLUTE AUTO 10.1 High [facility] Neutrophils/100 WBC (Bld) 81.9 % High 43.0 - 75.0 % [facility] Platelet mean volume (Bld) [Entitic vol] 9.9 fL 9.5 - 13.5 fL [facility] EO # 0.1 [facility] PLT 275 [facility] RBC 3.59 Low [facility] WBC 12.4 High [facility] US OB ANATOMYon 08-20-2024 [place] [address] Ultrasound Report Signed Patient: VANESSA ESPARZA MR#: [id number] : 1995 Acct:[id number] Age/Sex: 28 / F ADM Date: 08/20/24 Loc: LAB Attending Dr: Tammy Brown D.O. Ordering Physician: Tammy Brown D.O. Date of Service: 08/20/24 Procedure(s): US OB anatomy Accession Number(s): [id number] cc: Tammy Brown D.O.; Physician,Non-Staff [place] [address] Patient Name: VANESSA ESPARZA MRN: [id number] date: 1995 Sex: F Assigned Patient Location: LAB Current Patient Location: LAB Accession/Order Number: [id number] Exam Date: 08/20/2024 22:19 Report Date: 08/20/2024 22:29 At the request of: TAMMY BROWN DO Procedure: US OB anatomy OB ultrasound. Reason for exam:Anatomy survey, cervical length Comparison:None. Technique: Transabdominal imaging of the gravid uterus was obtained. Transvaginal imaging was also obtained for evaluation of the cervix. Findings: Single live intrauterine 21 weeks 4 days by anatomic measurements. heart rate 137 bpm. Appropriate growth for dating. Placenta is anterior in location without evidence of previa. Cervical length is normal at 3.72 cm without evidence of funneling. Cranial structures appear unremarkable. No ventriculomegaly. Nasal bone appears present. Four-chamber heart is present. Visualized Abdominal structures are grossly unremarkable. Spine is suboptimally visualized. Visualized portions appear grossly unremarkable. Three-vessel cord is noted. 4 extremities are noted. US/US OB anatomy Impression: Spine suboptimally visualized due to positioning. Otherwise, unremarkable survey. Cervical length measuring 3.7 cm without evidence of funneling. Impression dictated by: Don Braun Jr., D.O.08/20/2024 10:29 PM Dictation Location: [facility] Electronically authenticated by: [id number] Y Date: 08/20/2024 22:29 Dictated By: Don Braun M.D. Signed By: 08/20/242231 DD/ 28 TD/TT: Child Advocate: [facility] Radiology, Radiologist, - 08/20/[address] [address] Ultrasound Report Signed Patient: VANESSA ESPARZA MR#: [id number] : 1995 Acct:[id number] Age/Sex: 28 / F ADM Date: 08/20/24 Loc: LAB Attending Dr: Tammy Brown D.O. Ordering Physician: Tammy Brown D.O. Date of Service: 08/20/24 Procedure(s): US OB anatomy Accession Number(s): [id number] cc: Tammy Brown D.O.; Physician,Non-Staff [place] The [address] [address] Patient Name: VANESSA ESPARZA MRN: [facility]:[id number] date: 1995 Sex: F Assigned Patient Location: LAB Current Patient Location: LAB Accession/Order Number: [id number] Exam Date: 08/20/2024 22:19 Report Date: 08/20/2024 22:29 At the request of: TAMMY BROWN DO Procedure: US OB anatomy OB ultrasound. Reason for exam:Anatomy survey, cervical length Comparison:None. Technique: Transabdominal imaging of the gravid uterus was obtained. Transvaginal imaging was also obtained for evaluation of the cervix. Findings: Single live intrauterine 21 weeks 4 days by anatomic measurements. heart rate 137 bpm. Appropriate growth for dating. Placenta is anterior in location without evidence of previa. Cervical length is normal at 3.72 cm without evidence of funneling. Cranial structures appear unremarkable. No ventriculomegaly. Nasal bone appears present. Four-chamber heart is present. Visualized Abdominal structures are grossly unremarkable. Spine is suboptimally visualized. Visualized portions appear grossly unremarkable. Three-vessel cord is noted. 4 extremities are noted. US/US OB anatomy Impression: Spine suboptimally visualized due to positioning. Otherwise, unremarkable survey. Cervical length measuring 3.7 cm without evidence of funneling. Impression dictated by: Don Braun Jr., D.O.08/20/2024 10:29 PM Dictation Location: [place] [address] Electronically authenticated by: [id number] Y Date: 08/20/2024 22:29 Dictated By: Don Braun M.D. Signed By: 08/20/242231 DD/ 28 TD/TT: Child Advocate: [facility] Radiology Study observation (narrative) [facility] US OB ANATOMYOrdered By: Himanshu de leónogyani Radiology on 08-20-2024 [facility] [employer] Work Phone: US OB CERVICAL LENGTHon 08-01 [place] [address] Ultrasound Report Signed Patient: VANESSA ESPARZA MR#: [id number] : 1995 Acct:[id number] Age/Sex: 28 / F ADM Date: 08/20/24 Loc: LAB Attending Dr: Tammy Brown D.O. Ordering Physician: Tammy Brown D.O. Date of Service: 08/20/24 Procedure(s): US OB cervical length Accession Number(s): [id number] cc: Tammy Brown D.O.; Physician,Non-Staff [place] The [address] [address] Patient Name: VANESSA ESPARZA MRN: [facility]:[id number] date: 1995 Sex: F Assigned Patient Location: LAB Current Patient Location: LAB Accession/Order Number: [id number] Exam Date: 08/20/2024 22:30 Report Date: 08/20/2024 22:30 At the request of: TAMMY BROWN DO Procedure: US OB cervical length OB ultrasound. Reason for exam:Anatomy survey, cervical length Comparison:None. Technique: Transabdominal imaging of the gravid uterus was obtained. Transvaginal imaging was also obtained for evaluation of the cervix. Findings: Single live intrauterine 21 weeks 4 days by anatomic measurements. heart rate 137 bpm. Appropriate growth for dating. Placenta is anterior in location without evidence of previa. Cervical length is normal at 3.72 cm without evidence of funneling. Cranial structures appear unremarkable. No ventriculomegaly. Nasal bone appears present. Four-chamber heart is present. Visualized Abdominal structures are grossly unremarkable. Spine is suboptimally visualized. Visualized portions appear grossly unremarkable. Three-vessel cord is noted. 4 extremities are noted. US/US OB cervical length Impression: Spine suboptimally visualized due to positioning. Otherwise, unremarkable survey. Cervical length measuring 3.7 cm without evidence of funneling. Impression dictated by: Don Braun Jr., D.O.08/20/2024 10:30 PM Dictation Location: [place] [address] Electronically authenticated by: [id number] Y Date: 08/20/2024 22:30 Dictated By: Don Braun M.D. Signed By: 08/20/242232 DD/ 29 TD/TT: Child Advocate: [facility] Radiology, Radiologist, - 08/20/2024 The [place] [id number] Ultrasound Report Signed Patient: VANESSA ESPARZA MR#: [id number] : 1995 Acct:[id number] Age/Sex: 28 / F ADM Date: 08/20/24 Loc: LAB Attending Dr: Tammy Brown D.O. Ordering Physician: Tammy Brown D.O. Date of Service: 08/20/24 Procedure(s): US OB cervical length Accession Number(s): [id number] cc: Tammy Brown D.O.; Physician,Non-Staff [place] [id number] Patient Name: VANESSA ESPARZA MRN: [id number] date: 1995 Sex: F Assigned Patient Location: LAB Current Patient Location: LAB Accession/Order Number: [id number] Exam Date: 08/20/2024 22:30 Report Date: 08/20/2024 22:30 At the request of: TAMMY BROWN DO Procedure: US OB cervical length OB ultrasound. Reason for exam:Anatomy survey, cervical length Comparison:None. Technique: Transabdominal imaging of the gravid uterus was obtained. Transvaginal imaging was also obtained for evaluation of the cervix. Findings: Single live intrauterine 21 weeks 4 days by anatomic measurements. heart rate 137 bpm. Appropriate growth for dating. Placenta is anterior in location without evidence of previa. Cervical length is normal at 3.72 cm without evidence of funneling. Cranial structures appear unremarkable. No ventriculomegaly. Nasal bone appears present. Four-chamber heart is present. Visualized Abdominal structures are grossly unremarkable. Spine is suboptimally visualized. Visualized portions appear grossly unremarkable. Three-vessel cord is noted. 4 extremities are noted. US/US OB cervical length Impression: Spine suboptimally visualized due to positioning. Otherwise, unremarkable survey. Cervical length measuring 3.7 cm without evidence of funneling. Impression dictated by: Don Braun Jr., D.O.08/20/2024 10:30 PM Dictation Location: [employer] Electronically authenticated by: [id number] Y Date: 08/20/2024 22:30 Dictated By: Don Braun M.D. Signed By: 08/20/242232 DD/ 29 TD/TT: Child Advocate: [facility] Radiology Study observation (narrative) [facility] US OB CERVICAL LENGTHOrdered By: Radiologist Radiology on 08-20-2024 [employer] Work Phone: Urinalysis macro (dipstick) panel (U)on 08-18-2024 Bilirubin, UA Negative Negative - 4(70) +++ mg/dL [facility] Blood, UA Negative Negative - 50 Ayaz/mcL [facility] Clarity, UA Clear [facility] [employer] Color, UA Yellow [facility] [employer] Glucose, UA Negative Negative - 1999(110) ++++ mg/dL [facility] Interpretation and review of laboratory results Abnormal [facility] Ketones, UA Positive Negative - 160(16) ++++ mg/dL [facility] Leukocytes, UA Trace Negative - 500+++ Marcell/mcL [facility] Nitrite, UA Negative Negative - Positive [facility] pH, UA 6.5 5 - 9 [facility] [employer] Protein, UA Negative Negative - 1999(20) ++++ mg/dL [facility] Spec Grav, UA 1.025 1 - 1.03 [facility] Urobilinogen, UA 0.2 0.2 - 12 mg/dL [facility] [employer] IGP,APTIMA HPV,AGE GDLNon AGE GDLN ACOG TESTING Note . [facility] Comment on above: TESTS RESULT FLAG UN ITS REF RANGE LAB Clinician Provided Cytology Information Source.............Cervix No. of containers..01 ThinPrep Vial Age Algo ACOG Mari... FLAG LEGEND: L-Low Normal,H-High Normal,LL-Alert Low,HH-Alert High <-Panic Low,>-Panic High,A-Abnormal,AA-Critical Abnormal Performed at: 01 =G [address] [place] [address] Melba Leal MD, IGP, RFX APTIMA HPV ASCU Note . [facility] Comment on above: TESTS RESULT FLAG U NITS REF RANGE LAB DIAGNOSIS: 02 NEGATIVE FOR INTRAEPITHELIAL LESION OR MALIGNANCY. Specimen adequacy: 02 Satisfactory for evaluation. Endocervical and/or squamous metaplastic cells (endocervical component) are present. Performed by: Maria L Vee, Mutuel Machine Operator ([facility]) . 02 Note: Note 02 The Pap [...] <-Panic Low,>-Panic High,A-Abnormal,AA-Critical Abnormal Performed at: [address] [id number] Melba Leal MD, Performed at: = - [facility] [id number] Park Maintenance Technician: Melba Leal MD, Phone: [phone] Performed at: [facility] [address] [id number] Park Maintenance Technician: Melba Leal MD, Phone: [phone] SPATULA-ALONE CERVIX [facility] Healthcar e RECURRENT VAGINITIS (HTRX)on 07-23-2024 ATOPOBIUM VAGINAE 21.785 Abnormal [facility] al[facility]care ATOPOBIUM VAGINAE Detected Abnormal [facility] BVAB 2,3 (BACTERIAL VAGINOSIS ASSOCIATED BACTERIA 2, 3); MOBILUNCUS SPP 10.615 Abnormal [facility] BVAB 2,3 (BACTERIAL VAGINOSIS ASSOCIATED BACTERIA 2, 3); MOBILUNCUS SPP Detected Abnormal [facility] MOLINA ALBICANS, PARAPSILOSIS, TROPICALIS 0 [facility] MOLINA ALBICANS, PARAPSILOSIS, TROPICALIS Not detected [facility] MOLINA GLABRATA 0 [facility] MOLINA GLABRATA Not detected [facility] ealthcare MOLINA KRUSEI 0 [facility] MOLINA KRUSEI Not detected [facility] CHLAMYDIA TRACHOMATIS 0 [facility] CHLAMYDIA TRACHOMATIS Not detected [facility] ERMB, C; MEFA 16.03 Abnormal [facility] care ERMB, C; MEFA Detected Abnormal [facility] care GARDNERELLA VAGINALIS 24.033 Abnormal [facility] GARDNERELLA VAGINALIS Detected Abnormal [facility] Interpretation and review of laboratory results Abnormal [facility] Healthcare MEGASPHAERA (TYPES 1, 2) 0 [facility] MEGASPHAERA (TYPES 1, 2) Not detected [facility] MYCOPLASMA GENITALIUM 0 [facility] MYCOPLASMA GENITALIUM Not detected [facility] NEISSERIA GONORRHOEAE 0 [facility] NEISSERIA GONORRHOEAE Not detected [facility] TET B, TET M 18.821 Abnormal [facility] Healthc are TET B, TET M Detected Abnormal [facility] Healthc are TRICHOMONAS VAGINALIS 0 [facility] TRICHOMONAS VAGINALIS Not detected [facility] Healthcar e Vital Signs Date Time Vital Sign Value Performing Clinician Faci lity 08-18-2024 15:52-0500 Body weight 70.94 kg Imelda SIMMONS Work Phone: [facility] 08-18-2024 15:52-0500 Diastolic blood pressure 70 mm[Hg] Imelda SIMMONS Work Phone: [facility] 08-18-2024 15:52-0500 Systolic blood pressure 120 mm[Hg] Imelda SIMMONS Work Phone: [facility] 07-21-2024 16:07-0500 Body weight 69.31 kg Tammy Kevin DO Work Phone: [facility] 07-21-2024 16:07-0500 Diastolic blood pressure 72 mm[Hg] Tammy Kevin DO Work Phone: [facility] 07-21-2024 16:07-0500 Systolic blood pressure 110 mm[Hg] Tammy Kevin DO Work Phone: [facility] 06-17-2024 15:43-0500 Body weight 68.04 kg Tammy Kevin DO Work Phone: [facility] 06-17-2024 15:43-0500 Diastolic blood pressure 72 mm[Hg] Tammy Kevin DO Work Phone: [facility] 06-17-2024 15:43-0500 Systolic blood pressure 118 mm[Hg] Tammy Kevin DO Work Phone: [facility] Healthcare Encounters Encounter Date Encounter Type Care Provider Facility Start: 09-23-2024 End: 09-23-2024 ambulatory TAMMY KEVIN Not Available Start: 09-15-2024 End: 09-15-2024 ambulatory TAMMY KEVIN Not Available Start: 08-20-2024 End: 08-20-2024 Clinisync Result Encounter Tammy Kevin DO Work Phone: [facility] Unsolicited Start: 08-20-2024 End: 08-20-2024 Clinisync Result Encounter Tammy Fernandezo DO Work Phone: [facility] Unsolicited Start: 08-18-2024 End: 08-18-2024 flow sheet Imelda SIMMONS Work Phone: [facility] Comment on above: 20 weeks gestation o f ; Second trimester Start: 08-18-2024 End: 08-18-2024 ambulatory IMELDA MOHAN Not Available Start: 08-18-2024 End: 08-18-2024 Bamboo flowsheet Imelda SIMMONS Work Phone: [facility] Start: 08-18-2024 End: 08-18-2024 Bamboo flowsheet Imelda SIMMONS Work Phone: [facility] Start: 07-22-2024 End: 07-23-2024 External Result Encounter Imelda SIMMONS Work Phone: [facility] Unsolicited Start: 07-22-2024 End: 07-23-2024 External Result Encounter Imelda SIMMONS Work Phone: [facility] Unsolicited Start: 07-21-2024 End: 07-21-2024 Patient encounter procedure Tammy Kevin DO Work Phone: [facility] Start: 07-21-2024 End: 07-21-2024 Periodic preventive med est patient 18-39 yrs Tammy Kevin DO Work Phone: [facility] Comment on above: Screening, , for anatomic survey; Well woman exam with routine gynecological exam; Second trimester ; 16 weeks gestation of ; Vaginal discharge; STD exposure Start: 07-21-2024 End: 07-21-2024 ambulatory TAMMY KEVIN Not Available Start: 07-21-2024 End: 07-21-2024 Bamboo flowsheet Tammy Kevin DO Work Phone: [facility] Start: 07-21-2024 End: 07-27-2024 Bamboo flowsheet Tammy Kevin DO Work Phone: [facility] Start: 07-21-2024 End: 07-27-2024 Clinisync Result Encounter Tammy Kevin DO Work Phone: [facility] Unsolicited Start: 06-17-2024 End: 06-17-2024 ambulatory Tammy Kevin DO Work Phone: [facility] Comment on above: GA: 11w4d Procedures Date Procedure Procedure Detail Performing Clinician Start: 08-20-2024 US OB CERVICAL LENGTH C orey Kevin DO Work Phone: Start: 08-20-2024 US OB ANATOMY Tammy Lisa io DO Work Phone: Start: 08-20-2024 ALL CBC WITH AUTO DIFF Tammy Kevin DO Work Phone: Start: 08-18-2024 Urnls dip stick/tabl et rgnt non-auto w/o micrscp Imelda SIMMONS Work Phone: Start: 07-22-2024 RECURRENT VAGINITIS (HTRX) Imelda SIMMONS Work Phone: Start: 07-21-2024 IGP,APTIMA HPV,AGE GDLN Tammy Kevin DO Work Phone: Plan of Treatment Date Care Activity Detail Author Start: 09-15-2024 End: 09-15-2024 Patient encounter procedure 09/15/2024 3:30 PM EDT Routine [facility] [address] [place] [address] Kevin, Tammy, DO [address] [place] [address] [facility] Start: 08-18-2024 End: 08-18-2024 Patient encounter procedure [facility] Comment on above: Arrived Start: 07-21-2024 End: 07-21-2024 Patient encounter procedure [facility] Comment on above: Arrived Start: 07-21-2024 End: 01-18-2025 Alpha fetoprotein, maternal Alpha fetoprotein, maternal Lab Routine Second trimester 16 weeks gestation of Expected: 07/21/2024 (Approximate), Expires: 01/18/2025 [facility] Comment on above: Expected: 07/21/2024 (Approximate), Expires: 01/18/2025 Start: 07-21-2024 End: 07-21-2025 US for US OB 14+ weeks anatomy scan Imaging Routine Screening, , for anatomic survey Expected: 07/21/2024, Expires: 07/21/2025 [facility] Comment on above: Expected: 07/21/2024 , Expires: 07/21/2025 Start: 06-17-2024 End: 06-17-2025 ABO/Rh ABO/Rh Lab Routine Missed menses , unspecified gestational age Expected: 06/17/2024 (Approximate), Expires: 06/17/2025 [facility] Comment on above: Expected: 06/17/2024 (Approximate), Expires: 06/17/2025 Start: 06-17-2024 End: 06-17-2025 Blood type and Indirect antibody screen panel - Blood Type and screen Lab Routine Missed menses , unspecified gestational age Expected: 06/17/2024 (Approximate), Expires: 06/17/2025 [facility] Work Phone: Comment on above: Expected: 06/17/2024 (Approximate), Expires: 06/17/2025 Start: 06-17-2024 End: 06-17-2025 Drugs of abuse panel - Urine by Screen method Rapid drug screen, urine Lab Routine , unspecified gestational age Encounter for supervision of normal first in first trimester Expected: 06/17/2024 (Approximate), Expires: 06/17/2025 [facility] Comment on above: Expected: 06/17/2024 (Approximate), Expires: 06/17/2025 Start: 06-17-2024 End: 06-17-2025 US Pelvis transvaginal US OB transvaginal Imaging Routine Missed menses Expected: 06/17/2024 (Approximate), Expires: 06/17/2025 [facility] Comment on above: Expected: 06/17/2024 (Approximate), Expires: 06/17/2025 CBC W Auto Different ial panel - Blood CBC and differential Lab Routine Missed menses , unspecified gestational age Ordered: 06/17/2024 [facility] Comment on above: Ordered: 06/17/2024 CHLAMYDIA TRACHOMATI S (GENITO/STI) CHLAMYDIA TRACHOMATIS (GENITO/STI) Lab Routine STD exposure Ordered: 07/21/2024 [facility] Comment on above: Ordered: 07/21/2024 Cytology Cervical or vaginal smear or scraping study Pap Smear Pathology and Cytology Routine Well woman exam with routine gynecological exam Ordered: 07/21/2024 [facility] Comment on above: Ordered: 07/21/2024 Hemoglobin A1c/Hemoglobin.total in Blood Hemoglobin A1c Lab Routine Missed menses , unspecified gestational age Ordered: 06/17/2024 [facility] Comment on above: Ordered: 06/17/2024 Hepatitis B virus surface Ag [Presence] in Serum or Plasma by Immunoassay Hepatitis B surface antigen Lab Routine Missed menses , unspecified gestational age Ordered: 06/17/2024 [facility] Comment on above: Ordered: 06/17/2024 Hepatitis C virus Ab [Presence] in Serum or Plasma by Immunoassay Hepatitis C antibody Lab Routine Missed menses , unspecified gestational age Ordered: 06/17/2024 [facility] Comment on above: Ordered: 06/17/2024 HIV-1/HIV-2 antigen/antibody combination immunoassay HIV-1 and HIV-2 antibodies Lab Routine Missed menses , unspecified gestational age Ordered: 06/17/2024 [facility] Comment on above: Ordered: 06/17/2024 Neisseria gonorrhoea e DNA [Presence] in Unspecified specimen by SRINIVASAN with probe detection Neisseria gonorrhea DNA probe, direct Lab Routine STD exposure Ordered: 07/21/2024 [facility] Comment on above: Ordered: 07/21/2024 Reagin Ab [Presence] in Serum by RPR RPR Lab Routine Missed menses , unspecified gestational age Ordered: 06/17/2024 [facility] Comment on above: Ordered: 06/17/2024 Rubella antibody, IgG Rubella an tibody, IgG Lab Routine Missed menses , unspecified gestational age Ordered: 06/17/2024 [facility] Comment on above: Ordered: 06/17/2024 SURESWAB(R) ADVANCED VAGINITIS PLUS, TMA SURESWAB(R) ADVANCED VAGINITIS PLUS, TMA Pathology and Cytology Routine Vaginal discharge Ordered: 07/21/2024 [facility] Work Phone: Comment on above: Ordered: 07/21/2024 Payers Date Payer Category Payer Private Health Insurance [facility] [id number] 2023 Unknown [id number] 1996 Unknown [id number] .[id number] 1996 Unknown [id number] .[id number] 1996 Unknown [id number] .2.9 1996 Unknown [id number] .2.9 1996 Unknown [id number] Social History Date Type Detail Facility Tobacco smoking stat [facility] Tobacco smoking consumption unknown [facility] Start: 04-11-2024 [facility] Start: 1995 Sex assigned at Female [facility] Start: 06-16-2024 Gender identity Identifies as female gender (finding) [facility] Start: 06-16-2024 Sexual orientation Heterosexual (fin ding) [facility] History of Present illness Narrative 08-18-2024 TROY Mi - 08/18/2024 3:30 PM EST Note Date & Type Note Facility 08-18-2024 History of Presen t illness Narrative Reason for Appointment: Patient ID: Vanessa sEparza is a 28 y.o. female who presents [...] of: TROY [facility] documented in this encounter [facility] History of Present illness Narrative 07-21-2024 Nataly SextonCHER - 07/21/2024 3:20 PM EST Note Date & Type Note Facility 07-21-2024 History of Presen t illness Narrative Reason for Appointment: Patient ID: Vanessa Esparza is a 28 y.o. female who presents [...] nursing note reviewed. Exam conducted with a mixer slagman present. Vitals: There is no height or [...] Narrative Reason for Appointment: Patient ID: Vanessa Esparza is a 28 y.o. female who presents [...] or undercooked meat, [facility]. Patient has also been advised to [...] Whit Bourgeois MA documented in this encounter [facility] Evaluation note Note Date & Type Note Facility Evaluation note Diagnosis Missed menses 11 weeks gestation of , unspecified gestational age Encounter for supervision of normal first in first trimester documented in this encounter [facility] Evaluation note Note Date & Type Note Facility Evaluation note Diagnosis Screening, , for anatomic survey Encounter for anatomic survey Well woman exam with routine gynecological exam Routine gynecological examination Second trimester state, incidental 16 weeks gestation of Vaginal discharge Leukorrhea, not specified as infective STD exposure documented in this encounter [facility] Evaluation note Note Date & Type Note Facility Evaluation note Diagnosis 20 weeks gestation of Second trimester state, incidental documented in this encounter [facility] Summary Purpose Family History No Family History Records Found Advance Directives No Advanced Directives Records Found Additional Source Comments Reason for Visit (unrecogniz ed section and content) Reason Comments Amenorrhea Reason Comments Routine Visit STI Screening Gynecologic Exam INFORMATION SOURCE (unrecogn ized section and content) DATE CREATED AUTHOR 09/25/2024 [facility] EPIC FOR RECORDS PERTAINING TO PATIENTS [...] BE BASED ON THE PRIMARY CLINICAL RECORDS. [facility] [employer] provides no warranty or guarantee of the accuracy or completeness of information in this document.
[2024-10-12 16:39] LABS: Basophils Percent Auto 0.2 % (0.2-2.0); Eosinophils Absolute Auto 0.1 10^3/uL (0.0-0.7); Eosinophils Percent Auto 0.7 % (0.9-7.0); Hematocrit 30.9 % (36.0-48.0); Hemoglobin 10.2 g/dL (12.0-16.0); Immature Granulocytes Abs Auto 0.03 10^3/uL (0.00-0.03); Immature Granulocytes Pct Auto 0.3 % (0.0-0.5); Lymphocytes Absolute Auto 1.4 10^3/uL (1.2-3.8); Lymphocytes Percent Auto 13.8 % (20.5-60.0); Mean Corpuscular Hemoglobin 28.4 pg (26.7-34.0); Mean Corpuscular Volume 86.1 fL (81.0-99.0); Monocytes Absolute Auto 0.5 10^3/uL (0.3-0.8); Monocytes Percent Auto 4.7 % (1.7-12.0); Neutrophils Absolute Auto 8.1 10^3/uL (1.4-6.5); Neutrophils Percent Auto 80.3 % (43.0-75.0); Platelet Count 318 10^3/uL (150-450); Red Blood Count 3.59 10^6/uL (4.20-5.40); Red Cell Distribution Width 12.2 % (11.0-15.0); White Blood Count 10.1 10^3/uL (4.0-11.0)
[2024-10-12 16:55] LABS: Glucose 1 Hour 144 mg/dL (<130)
== END 2024-10-12 14:59 | disposition home or self-care (01) ==
LOC: LAB 14:58
PROVIDERS: Visit Provider Obstetrics & Gynecology
DX: Z13.1 Encounter for screening for diabetes mellitus (principal)
CPT/HCPCS: 36415; 82950; 85025

== ENCOUNTER 2024-10-15 07:28 | Outpatient (RCR) | payer OTHER, SELFPAY ==
[2024-10-15 14:01] VITALS: BP 103/68; PULSE 116; TEMP 36.7; O2SAT 98
[2024-10-15] MEDS: RHO(D) IMMUNE GLOBULIN 1,500 UNIT SYRINGE 1500 UNIT IM (14:07)
== END 2024-10-27 23:59 | disposition home or self-care (01) ==
LOC: INF 07:28
PROVIDERS: Visit Provider Obstetrics & Gynecology
DX: O26.893 Other specified pregnancy related conditions, third trimester (principal); Z67.91 Unspecified blood type, Rh negative
CPT/HCPCS: 36415; 86850; 86900; 86901; 96372; J2791

== ENCOUNTER 2024-11-08 15:20 | Outpatient (OUT) | payer OTHER, SELFPAY ==
--- NOTE | 2024-11-08 15:23 | US_ITS ---
The [address] [address] Patient Name: CANDIE ESPARZA MRN: [id number] date: 1995 Sex: F Assigned Patient Location: LAB Current Patient Location: LAB Accession/Order Number: [id number] Exam Date: 11/08/2024 22:34 Report Date: 11/08/2024 22:37 At the request of: TAMMY OWUSU DO Procedure: US OB growth Follow up obstetrical ultrasound for growth. The biparietal diameter 7.7 cm consistent with 31 weeks 0 days. Head circumference 28.5 cm consistent with 31 weeks 2 days. Abdominal circumference 27.9 cm consistent with 31 weeks 6 days. Femur length 6.5 cm consistent with 33 weeks 3 days. Estimated weight 1923 g. Estimated weight percentile 40.6%. Amniotic fluid index 13.0 cm. heart rate 134 bpm. The average gestational age by ultrasound is 31 weeks 6 days. Estimated delivery by ultrasound 01/04/2025. US/US OB growth IMPRESSION: Single live uterine gestation 31 weeks 6 days. Impression dictated by: Calin Mason M.D. 11/08/2024 10:37 PM Dictation Location: [employer] Electronically authenticated by: [id number] Y Date: 11/08/2024 22:37
== END 2024-11-08 15:21 | disposition home or self-care (01) ==
LOC: LAB 15:20
PROVIDERS: Visit Provider Obstetrics & Gynecology
DX: O26.843 Uterine size-date discrepancy, third trimester (principal); Z3A.31 31 weeks gestation of pregnancy; R73.09 Other abnormal glucose
CPT/HCPCS: 76816

== ENCOUNTER 2024-11-10 13:13 | Outpatient (OUT) | payer OTHER, SELFPAY ==
[2024-11-10 14:06] LABS: Glucose Fasting 86 mg/dL (<95)
[2024-11-10 14:51] LABS: Glucose 1 Hour 96 mg/dL (<180)
[2024-11-10 16:17] LABS: Glucose 2 Hour 97 mg/dL (<155)
[2024-11-10 16:38] LABS: Glucose 3 Hour 90 mg/dL (<140)
== END 2024-11-10 13:14 | disposition home or self-care (01) ==
LOC: LAB 13:13
PROVIDERS: Visit Provider Obstetrics & Gynecology
DX: R73.09 Other abnormal glucose (principal)
CPT/HCPCS: 36415; 82951; 82952

== ENCOUNTER 2024-12-08 20:13 | Outpatient (REF) | payer OTHER, SELFPAY ==
--- OUTSIDE RECORDS SUMMARY | 2024-12-08 20:17 | XMS_ITS | Clinical Summary ---
Author Organization [facility] tem Address [id number] [address] [place] [address] Care Team Providers Care Clinical Data Management Director Name Role Phone Salmaramesh Susan K Primary Care Provider [phone]- [phone] Allergies No known active allergies Medications No known medications Active Problems No known active problems Social History Tobacco Use Types Packs/Day Years Used Date Smoking Tobacco: Every Day Cigarettes Smokeless Tobacco: Never Alcohol Use Standard Drinks/Week Comments Never 0 (1 standard drink = 0.6 oz pur e alcohol) AUDIT-C Answer Date Recorded Frequency of Alcohol Consumption Never 03/04/2019 Average Number of Drinks Not on file 019 Frequency of Binge Drinking Not on file 10/2018 Childcare Answer Date Recorded Childcare Unknown 12/09/2018 Employment Answer Date Recorded Employment Unknown 12/09/2018 Hunger Screening Answer Date Recorded Within the past 12 months we worried whether our food would run out before we got money to buy more. Never True 06/16/2022 Within the past 12 months th e food we bought just didn't last and we didn't have money to get more. Never True 06/16/2022 Purpose - Life Answer Date Recorded Purpose and direction in life Unknown Comments No Sex and Gender Information Value Date Recorded Sex Assigned at Not on file Legal Sex Female 11:53 AM EDT Gender Identity Not on file Sexual Orientation Not on file Last Filed Vital Signs Vital Sign Reading Time Taken Comments Blood Pressure 101/58 06/16/2022 4:30 AM EST Pulse 63 06/16/2022 4:30 AM EST Temperature 36.3 C (97.4 F) 06/16/2022 3:05 AM EST Respiratory Rate 16 06/16/2022 4:30 AM EST Oxygen Saturation 97% 06/16/2022 4:30 AM EST Inhaled Oxygen Concentration - - Weight 63.5 kg (140 lb) 06/16/2022 3:05 AM EST Height 165.1 cm (5' 5 ) 06/16/2022 3:05 AM EST Body Mass Index 23.3 06/16/2022 3:05 AM EST Plan of Treatment Health Maintenance Due Date Last Done Comments Depression Screening 2008 Tobacco Screening 2008 DTaP,Tdap and Td Vaccines (1 - Tdap) 12/21/2015 Pap Smear 2017 Adult BMI Screening 06/16/2023 06/16/2022 COVID-19 Vaccine ( season) 2024, 03/28/2021 Influenza Vaccine 02/28/2025 Medical Devices Not on file Insurance [employer] Care Teams Clinical Data Management Director Relationship Specialty Start Date End Date Susan Mitchell DO [address] [phone] PCP - General Family Medicine 08/31/20
--- OUTSIDE RECORDS SUMMARY | 2024-12-08 20:17 | XMS_ITS | CCD ---
Author Organization [facility] Care Team Providers Care Diving Coach Name Role Phone Unavailable Primary Care Provider UnavailTAMMY Poe Attending Unavailable IMELDA MOHAN Attending Unavailable TAMMY BROWN Attending Unavailable TAMMY BROWN Referring Unavailable MIRTHA RICHARDSON Attending Unavailable TAMMY BROWN Attending Unavailable IMELDA MOHAN Attending Unavailable TAMMY BROWN Attending Unavailable Medications Current Medications Medication Drug Class(es) Dates Sig (Normalized) Sig (Original) cephalexin 500 mg oral capsule (13 sources) Cephalosporin Antibacterial Start: 11-17-2024 End: 12-17-2024 take 1 capsule by mouth once daily cephalexin (Keflex) 500 MG capsule Indications: Acute cystitis without hematuria Take 1 capsule (500 mg) by mouth Daily 30 capsule 1 11/17/2024 12/17/2024 Active Start: 11-03-2024 End: 11-10-2024 take 1 capsule by mouth in the morning, then take 1 capsule by mouth in the evening, then take 1 capsule by mouth at bedtime cephalexin (Keflex) 500 MG capsule Indications: Urinary tract infection without hematuria, site unspecified Take 1 capsule (500 mg) by mouth in the morning and 1 capsule (500 mg) in the evening and 1 capsule (500 mg) before bedtime. Do all this for 7 days. 21 capsule 11/03/2024 11/10/2024 Active polysaccharide iron complex 391 mg oral capsule (11 sources) Start: 11-23-2024 take 1 capsule by mouth once daily ProFe 391.3 (180 Fe) MG capsule Take 180 mg by mouth Daily 11/23/2024 Active Start: 10-14-2024 End: 11-13-2024 take 1 capsule by mouth once daily iron polysaccharides (ProFe) 391.3 (180 Fe) MG capsule Indications: Anemia affecting in third trimester Take 1 capsule (391.3 mg) by mouth Daily 30 capsule 6 10/14/2024 11/13/2024 Active Completed/Discontinued Medications Medication Drug Class(es) Dates Sig (Normalized) Sig (Original) chlorhexidine gluconate 1.2 mg/ml mouthwash (10 sources) Start: 01-08-2024 End: 08-18-2024 take 15 mL by mouth twice daily chlorhexidine (Peridex) 0.12 % solution SWISH AND SPIT 15ML BY MOUTH TWICE DAILY DIRECTED 01/08/2024 08/18/2024 Discontinued nitrofurantoin, macrocrystals 25 mg / nitrofurantoin, monohydrate 75 mg oral capsule (13 sources) Nitrofuran Antibacterial Start: 12-02-2024 End: 12-09-2024 take 1 capsule by mouth in the morning nitrofurantoin, macrocrystal-monoh ydrate, (Macrobid) 100 MG capsule Indications: Enterococcus UTI Take 1 capsule (100 mg) by mouth in the morning and 1 capsule (100 mg) before bedtime. Do all this for 7 days. 14 capsule 12/02/2024 12/08/2024 Discontinued Start: 11-11-2024 End: 11-18-2024 take 1 capsule by mouth in the morning nitrofurantoin, macrocrystal-monohydrate , (Macrobid) 100 MG capsule Indications: Acute cystitis without hematuria Take 1 capsule (100 mg) by mouth in the morning and 1 capsule (100 mg) before bedtime. Do all this for 7 days. 14 capsule 11/11/2024 11/18/2024 Active Start: 10-22-2024 End: 11-09-2024 take 1 capsule by mouth in the morning nitrofurantoin, macrocrystal-monohydrate , (Macrobid) 100 MG capsule Indications: Urinary tract infection without hematuria, site unspecified Take 1 capsule (100 mg) by mouth in the morning and 1 capsule (100 mg) before bedtime. Do all this for 7 days. 14 capsule 11/02/2024 11/09/2024 Active Problems Problem Classification Problem Date Documented Da te Episodic/Chronic Genitourinary symptoms and ill-defined conditions (2 sources) Blood in urine; Translations: [Hematuria, unspecified] 12-01-2024 Episodic Immunizations and screening for infectious disease (2 sources) Exposure to sexually transmissible disorder; Translations: [Contact with and (suspected) exposure to infections with a predominantly sexual mode of transmission] 07-21-2024 Episodic Menstrual disorders (2 sources) Missed period; Translations: [Irregular menstruation, unspecified] 06-17-2024 Chronic Other complications of (2 sources) size does not accord with dates; Translations: [Uterine size-date discrepancy, unspecified trimester] 11-03-2024 Episodic Other female genital disorders (2 sources) Vaginal discharge; Translations: [Other specified noninflammatory disorders of vagina] 07-21-2024 Episodic Other and delivery including normal (18 sources) ; Translations: [Encounter for supervision of [...] [20 weeks gestation of ] 08-18-2024 Episodic Residual codes; unclassified (2 sources) Gestation period, 29 weeks; Translations: [29 weeks gestation of ] 10-20-2024 Episodic Residual codes; unclassified (2 sources) Gestation period, 31 weeks; Translations: [31 weeks gestation of ] 11-03-2024 Episodic Residual codes; unclassified (2 sources) Gestation period, 33 weeks; Translations: [33 weeks gestation of ] 11-17-2024 Episodic Residual codes; unclassified (2 sources) Gestation period, 35 weeks; Translations: [35 weeks gestation of ] 12-01-2024 Episodic Residual codes; unclassified (2 sources) Gestation period, 36 weeks; Translations: [36 weeks gestation of ] 12-08-2024 Episodic Urinary tract infections (5 sources) Urinary tract infectious disease; Translations: [Urinary tract infection, site not specified] 10-20-2024 Episodic Results Test Name Value Interpretation Reference Range Facility Urinalysis macro (dipstick) panel (U)on 12-08-2024 Bilirubin, UA Negative Negative - 4(70) +++ mg/dL [facility] Blood, UA Positive Negative - 50 Ayaz/mcL [facility] Clarity, UA Clear [facility] re Color, UA Yellow [facility] e Glucose, UA Negative Negative - 1999(110) ++++ mg/dL [facility] Interpretation and review of laboratory results Abnormal [facility] Ketones, UA Negative Negative - 160(16) ++++ mg/dL [facility] Leukocytes, UA Negative Negative - 500+++ Marcell/mcL [facility] Nitrite, UA Negative Negative - Positive [facility] pH, UA 7 5 - 9 [facility] e Protein, UA Negative Negative - 1999(20) ++++ mg/dL [facility] Spec Grav, UA 1.02 1 - 1.03 [facility] Urobilinogen, UA 0.2 0.2 - 12 mg/dL [facility] GLUCOSE TOLERANCE 3 HOURon 0 11-10-2024 GLUCOSE TOLERANCE 3 HOUR mg/dL [facility] Comment on above: GLU FAST 86 (<95) Co l: 11/10/24 1318 GLU 1HR 96 (<180) Col: 11/10/24 1423 GLU 2HR 97 (<155) Col: 11/10/24 1522 GLU 3HR 90 (<140) Col: 11/10/24 1624 [facility] e US OB GROWTHon 11-08-2024 [place] [address] Ultrasound Report Signed Patient: VANESSA ESPARZA MR#: [id number] : 1995 Acct:[id number] Age/Sex: 28 / F ADM Date: 11/08/24 Loc: LAB Attending Dr: Tammy Brown D.O. Ordering Physician: Tammy Brown D.O. Date of Service: 11/08/24 Procedure(s): US OB growth Accession Number(s): [id number] cc: Tammy Brown D.O.; Physician,Non-Staff M.DSoo The [place] [address] Patient Name: VANESSA EPSARZA MRN: [facility]:[id number] date: 1995 Sex: F Assigned Patient Location: LAB Current Patient Location: LAB Accession/Order Number: [id number] Exam Date: 11/08/2024 22:34 Report Date: 11/08/2024 22:37 At the request of: TAMMY BROWN DO Procedure: US OB growth Follow up obstetrical ultrasound for growth. The biparietal diameter 7.7 cm consistent with 31 weeks 0 days. Head circumference 28.5 cm consistent with 31 weeks 2 days. Abdominal circumference 27.9 cm consistent with 31 weeks 6 days. Femur length 6.5 cm consistent with 33 weeks 3 days. Estimated weight 1923 g. Estimated weight percentile 40.6%. Amniotic fluid index 13.0 cm. heart rate 134 bpm. The average gestational age by ultrasound is 31 weeks 6 days. Estimated delivery by ultrasound 01/04/2025. US/US OB growth IMPRESSION: Single live uterine gestation 31 weeks 6 days. Impression dictated by: Calin Mason M.D. 11/08/2024 10:37 PM Dictation Location: [facility] Electronically authenticated by: [id number] Y Date: 11/08/2024 22:37 Dictated By: Calin Mason D.O. Signed By: 11/08/242239 DD/ 36 TD/TT: Bias Cutting Machine Operator: [facility] Radiology, Radiologist, - 11/08/2024 [place] [address] Ultrasound Report Signed Patient: VANESSA ESPARZA MR#: [id number] : 1995 Acct:[id number] Age/Sex: 28 / F ADM Date: 11/08/24 Loc: LAB Attending Dr: Tammy Brown D.O. Ordering Physician: Tammy Brown D.O. Date of Service: 11/08/24 Procedure(s): US OB growth Accession Number(s): [id number] cc: Tammy Brown D.O.; Physician,Non-Staff [place] [address] [address] Patient Name: VANESSA ESPARZA MRN: [facility]:[id number] date: 1995 Sex: F Assigned Patient Location: LAB Current Patient Location: LAB Accession/Order Number: [id number] Exam Date: 11/08/2024 22:34 Report Date: 11/08/2024 22:37 At the request of: TAMMY BROWN DO Procedure: US OB growth Follow up obstetrical ultrasound for growth. The biparietal diameter 7.7 cm consistent with 31 weeks 0 days. Head circumference 28.5 cm consistent with 31 weeks 2 days. Abdominal circumference 27.9 cm consistent with 31 weeks 6 days. Femur length 6.5 cm consistent with 33 weeks 3 days. Estimated weight 1923 g. Estimated weight percentile 40.6%. Amniotic fluid index 13.0 cm. heart rate 134 bpm. The average gestational age by ultrasound is 31 weeks 6 days. Estimated delivery by ultrasound 01/04/2025. US/US OB growth IMPRESSION: Single live uterine gestation 31 weeks 6 days. Impression dictated by: Calin Mason M.D. 11/08/2024 10:37 PM Dictation Location: [facility] Electronically authenticated by: [id number] Y Date: 11/08/2024 22:37 Dictated By: Calin Mason D.O. Signed By: 11/08/242239 DD/ 36 TD/TT: Bias Cutting Machine Operator: [facility] [employer] Radiology Study observation (narrative) [facility] US OB GROWTHOrdered By: Janelle ologist Radiology on 11-08-2024 [facility] [employer] Work Phone: Urinalysis macro (dipstick) panel (U)on 11-03-2024 Bilirubin, UA Positive Negative - 4(70) +++ mg/dL [facility] Comment on above: small Blood, UA Positive Negative - 50 Ayaz/mcL [facility] Comment on above: moderate Clarity, UA Clear [facility] [employer] re Color, UA Christine [facility] Glucose, UA Negative Negative - 2000(110) ++++ mg/dL [facility] Interpretation and review of laboratory results Abnormal [facility] Ketones, UA Positive Negative - 160(16) ++++ mg/dL [facility] Comment on above: trace Leukocytes, UA Positive Negative - 500+++ Marcell/mcL [facility] Comment on above: large Nitrite, UA Positive Negative - Positive [facility] Comment on above: positive pH, UA 6.5 5 - 9 [facility] Protein, UA Positive Negative - 2000(20) ++++ mg/dL [facility] Comment on above: 100 Spec Grav, UA 1.02 1 - 1.03 [facility] Urobilinogen, UA 0.2 0.2 - 12 mg/dL [facility] Urinalysis macro (dipstick) panel (U)on 10-20-2024 Bilirubin, UA Negative Negative - 4(70) +++ mg/dL [facility] Blood, UA Negative Negative - 50 Ayaz/mcL [facility] Clarity, UA Clear [facility] Color, [facility]A [facility] Glucose, UA Negative Negative - 1999(110) ++++ mg/dL [facility] Interpretation and review of laboratory results Abnormal [facility] Ketones, UA Positive Negative - 160(16) ++++ mg/dL [facility] Comment on above: 15 Leukocytes, UA Trace Negative - 500+++ Marcell/mcL [facility] Nitrite, UA Negative Negative - Positive [facility] pH, UA 6 5 - 9 [facility] Protein, UA Positive Negative - 2000(20) ++++ mg/dL [facility] Comment on above: 30 Spec Grav, UA 1.025 1 - 1.03 [facility] Urobilinogen, UA 0.2 0.2 - 12 mg/dL [facility] ALL CBC WITH AUTO DIFFon BASOPHILS ABSOLUTE AUTO 0 [facility] Basophils/100 WBC (Bld) 0.2 % 0.2 - 2.0 % [facility] Eosinophils/100 WBC (Bld) 0.7 % Low 0.9 - 7.0 % [facility] Erythrocyte distribution width (RBC) [Ratio] 12.2 % 11.0 - 15.0 % [facility] Hematocrit (Bld) [Volume fraction] 30.9 % Low 36.0 - 48.0 % [facility] Hemoglobin (Bld) [Mass/Vol] 10.2 g/dL Low 12.0 - 16.0 g/dL [facility] IMMATURE GRANULOCYTES ABS AUTO 0.03 [facility] Immature granulocytes/100 WBC (Bld) 0.3 % 0.0 - 0.5 % [facility] Interpretation and review of laboratory results Abnormal [facility] LYMPHOCYTES ABSOLUTE AUTO 1.4 [facility] Lymphocytes/100 WBC (Bld) 13.8 % Low 20.5 - 60.0 % [facility] MCH (RBC) [Entitic mass] 28.4 pg 26.7 - 34.0 pg [facility] MCHC (RBC) [Mass/Vol] 33 g/dL 29.9 - 35.2 g/dL [facility] MCV (RBC) [Entitic vol] 86.1 fL 81.0 - 99.0 fL [facility] MONOCYTES ABSOLUTE AUTO 0.5 [facility] Monocytes/100 WBC (Bld) 4.7 % 1.7 - 12.0 % [facility] NEUTROPHILS ABSOLUTE AUTO 8.1 High [facility] Neutrophils/100 WBC (Bld) 80.3 % High 43.0 - 75.0 % [facility] Platelet mean volume (Bld) [Entitic vol] 10 fL 9.5 - 13.5 fL [facility]1 [facility] PLT 318 [facility] TB RBC 3.59 Low [facility] TB WBC 10.1 [facility] US OB LIMITED 1+ FETUSESon 0 - US OB LIMITED 1+ FETUSES EXAM: US [...] follow up spine. Electronically Signed:Electronically signed by ZEINA ALLISON II, MD, PHD at 23-Sep-2024 11:17:43 PM [facility] Normal Not Available Comment on above: Order Comment: US OB INCOMPLETE ANATOMY Estimated Date of Delivery: 01/02/25 Gestational Age as of 08/24/2024: 21w2d ALL CBC WITH AUTO DIFFon BASOPHILS ABSOLUTE AUTO 0 [facility] Basophils/100 WBC (Bld) 0.2 % 0.2 - 2.0 % [facility] Eosinophils/100 WBC (Bld) 0.6 % Low 0.9 - 7.0 % [facility] Erythrocyte distribution width (RBC) [Ratio] 12.5 % 11.0 - 15.0 % [facility] Hematocrit (Bld) [Volume fraction] 32 % Low 36.0 - 48.0 % [facility] Hemoglobin (Bld) [Mass/Vol] 10.9 g/dL Low 12.0 - 16.0 g/dL [facility] IMMATURE GRANULOCYTES ABS AUTO 0.05 High [facility] Immature granulocytes/100 WBC (Bld) 0.4 % 0.0 - 0.5 % [facility] Interpretation and review of laboratory results Abnormal [facility] LYMPHOCYTES ABSOLUTE AUTO 1.4 [facility] Lymphocytes/100 WBC (Bld) 11.3 % Low 20.5 [...] [facility] US OB ANATOMYon 08-20-2024 [place] [address] Ultrasound Report Signed Patient: VANESSA ESPARZA MR#: [id number] : 1995 Acct:[id number] Age/Sex: 28 / F ADM Date: 08/20/24 Loc: LAB Attending Dr: Tammy Brown D.O. Ordering Physician: Tammy Brown D.O. Date of Service: 08/20/24 Procedure(s): US OB anatomy Accession Number(s): [id number] cc: Tammy Brown D.O.; Physician,Non-Staff [place] [address] Patient Name: VANESSA ESPARZA MRN: [id number] date: 1995 Sex: F Assigned Patient Location: LAB Current Patient Location: LAB Accession/Order Number: [id number] Exam Date: 08/20/2024 22:19 Report Date: 08/20/2024 [...] Braun Jr., D.O.08/20/2024 10:29 PM Dictation Location: [facility]ERingCredible Electronically authenticated by: [id number] Y Date: 08/20/2024 22:29 Dictated By: Don Braun M.D. Signed By: 08/20/242231 DD/ 28 TD/TT: Bias Cutting Machine Operator: [facility] Radiology, Radiologist, MD - 08/20/2024 [place] [address] Ultrasound Report Signed Patient: VANESSA ESPARZA MR#: [id number] : 1995 Acct:[id number] Age/Sex: 28 / F ADM Date: 08/20/24 Loc: LAB Attending Dr: Tammy Brown D.O. Ordering Physician: Tammy Brown D.O. Date of Service: 08/20/24 Procedure(s): US OB anatomy Accession Number(s): [id number] cc: Tammy Brown D.O.; Physician,Non-Staff [place] The [place] [id number] Patient Name: VANESSA ESPARZA MRN: [facility]:[id number] date: 1995 Sex: F Assigned Patient Location: LAB Current Patient Location: LAB Accession/Order Number: [id number] Exam Date: 08/20/2024 22:19 Report Date: 08/20/2024 22:29 At the request of: TMAMY BROWN DO Procedure: US OB anatomy OB [...] Braun Jr., D.O.08/20/2024 10:29 PM Dictation Location: [place] [address] Electronically authenticated by: [id number] Y Date: 08/20/2024 22:29 Dictated By: Don Braun M.D. Signed By: 08/20/242231 DD/ 28 TD/TT: Bias Cutting Machine Operator: [facility] [employer] Radiology Study observation (narrative) [facility] [employer] US OB ANATOMYOrdered By: Himanshu de leónyani Radiology on 08-20-2024 [facility] [employer] Work Phone: US OB CERVICAL LENGTHon 08-01 [place] [address] Ultrasound Report Signed Patient: VANESSA ESPARZA MR#: [id number] : 1995 Acct:[id number] Age/Sex: 28 / F ADM Date: 08/20/24 Loc: LAB Attending Dr: Tammy Brown D.O. Ordering Physician: Tammy Brown D.O. Date of Service: 08/20/24 Procedure(s): US OB cervical length Accession Number(s): [id number] cc: Tammy Brown D.O.; Physician,Non-Staff [place] The [place] [id number] Patient Name: VANESSA ESPARZA MRN: [id number]:[id number] date: 1995 Sex: F Assigned Patient Location: LAB Current Patient Location: LAB Accession/Order Number: [id number] Exam Date: 08/20/2024 22:30 Report Date: 08/20/2024 [...] Braun Jr., D.O.08/20/2024 10:30 PM Dictation Location: [facility]rax[facility] Electronically authenticated by: [id number] Y Date: 08/20/2024 22:30 Dictated By: Don Braun M.D. Signed By: 08/20/242232 DD/ 29 TD/TT: Bias Cutting Machine Operator: [facility] Radiology, Radiologist, MD - 08/20/2024 [place] [address] Ultrasound Report Signed Patient: VANESSA ESPARZA MR#: [id number] : 1995 Acct:[id number] Age/Sex: 28 / F ADM Date: 08/20/24 Loc: LAB Attending Dr: Tammy Brown D.O. Ordering Physician: Tammy Brown D.O. Date of Service: 08/20/24 Procedure(s): US OB cervical length Accession Number(s): [id number] cc: Tammy Brown D.O.; Physician,Non-Staff [place] The [address] [address] Patient Name: VANESSA ESPARZA MRN: [facility]:[id number] date: 1995 Sex: F Assigned Patient Location: LAB Current Patient Location: LAB Accession/Order Number: [id number] Exam Date: 08/20/2024 22:30 Report Date: 08/20/2024 [...] Braun Jr., D.O.08/20/2024 10:30 PM Dictation Location: [employer] Electronically authenticated by: [id number] Y Date: 08/20/2024 22:30 Dictated By: Don Braun M.D. Signed By: 08/20/242232 DD/ 29 TD/TT: Bias Cutting Machine Operator: [facility] Radiology Study observation (narrative) [facility] US OB CERVICAL LENGTHOrdered By: Radiologist Radiology on 08-20-2024 [facility] Work Phone: Urinalysis macro (dipstick) panel (U)on 08-18-2024 Bilirubin, UA Negative Negative - 4(70) +++ mg/dL [facility] Blood, UA Negative Negative - 50 Ayaz/mcL [facility] Clarity, UA Clear [facility], UA Yellow [facility] [employer] Glucose, UA Negative Negative - 2000(110) ++++ mg/dL [facility] Interpretation and review of laboratory results Abnormal [facility] Ketones, UA Positive Negative - 160(16) ++++ mg/dL [facility] Leukocytes, UA Trace Negative - 500+++ Marcell/mcL [facility] Nitrite, UA Negative Negative - Positive [facility] pH, UA 6.5 5 - 9 [facility] [employer] Protein, UA Negative Negative - 1999(20) ++++ mg/dL [facility] Spec Grav, UA 1.025 1 - 1.03 [facility] Urobilinogen, UA 0.2 0.2 - 12 mg/dL [facility] [employer] IGP,APTIMA HPV,AGE GDLNon AGE GDLN ACOG TESTING Note . [facility] Comment on above: TESTS RESULT FLAG UN [facility] REF RANGE LAB Clinician Provided Cytology Information Source.............Cervix No. of containers..01 ThinPrep Vial Age Algo ACOG Mari... FLAG LEGEND: L-Low Normal,H-High Normal,LL-Alert Low,HH-Alert High <-Panic Low,>-Panic High,A-Abnormal,AA-Critical Abnormal Performed at: 01 =G [facility] [address] [place] [address] Melba Leal MD, IGP, RFX APTIMA HPV ASCU Note . [facility] Comment on above: TESTS RESULT FLAG UN ITS REF RANGE LAB DIAGNOSIS: 02 NEGATIVE FOR INTRAEPITHELIAL LESION OR MALIGNANCY. Specimen adequacy: 02 Satisfactory for evaluation. Endocervical and/or squamous metaplastic cells (endocervical component) are present. Performed by: 02 Imelda Vee, Public Relations Director ([facility] [place]) . 02 Note: Note 02 The Pap [...] <-Panic Low,>-Panic High,A-Abnormal,AA-Critical Abnormal Performed at: [address] [place] [address] Melba Leal MD, Performed at: = - [facility] [id number] Lease Broker: Melba Leal MD, Phone: [phone] Performed at: [address] [id number] Lease Broker: Melba Leal MD, Phone: [phone] SPATULA-ALONE CERVIX [facility] RECURRENT VAGINITIS (HTRX)on 07-23-2024 ATOPOBIUM VAGINAE 21.785 Abnormal [facility] ATOPOBIUM VAGINAE Detected Abnormal [facility] BVAB 2,3 (BACTERIAL VAGINOSIS ASSOCIATED BACTERIA 2, 3); MOBILUNCUS SPP 10.615 Abnormal [facility] BVAB 2,3 (BACTERIAL VAGINOSIS ASSOCIATED BACTERIA 2, 3); MOBILUNCUS SPP Detected Abnormal [facility] MOLINA ALBICANS, PARAPSILOSIS, TROPICALIS 0 [facility] MOLINA ALBICANS, PARAPSILOSIS, TROPICALIS Not detected [facility] MOLINA GLABRATA 0 [facility] MOLINA GLABRATA Not detected [facility] MOLINA KRUSEI 0 [facility] MOLINA KRUSEI Not detected [facility] CHLAMYDIA TRACHOMATIS 0 [facility] CHLAMYDIA TRACHOMATIS Not detected [facility] ERMB, C; MEFA 16.03 Abnormal [facility] ERMB, C; MEFA Detected Abnormal [facility] Health care GARDNERELLA VAGINALIS 24.033 Abnormal [facility] GARDNERELLA VAGINALIS Detected Abnormal [facility] Interpretation and review of laboratory results Abnormal [facility] MEGASPHAERA (TYPES 1, 2) 0 [facility] MEGASPHAERA (TYPES 1, 2) Not detected [facility] MYCOPLASMA GENITALIUM 0 [facility] MYCOPLASMA GENITALIUM Not detected [facility] NEISSERIA GONORRHOEAE 0 [facility] NEISSERIA GONORRHOEAE Not detected [facility] TET B, TET M 18.821 Abnormal [facility] TET B, TET M Detected Abnormal [facility] TRICHOMONAS VAGINALIS 0 [facility] TRICHOMONAS VAGINALIS Not detected [facility] Vital Signs Date Time Vital Sign Value Performing Clinician Mirandai ranjit 12-08-2024 15:32-0400 Body weight 70.94 kg Imelda SIMMONS Work Phone: [facility] 12-08-2024 15:32-0400 Diastolic blood pressure 68 mm[Hg] Imelda SIMMONS Work Phone: [facility] 12-08-2024 15:32-0400 Systolic blood pressure 118 mm[Hg] Imelda SIMMONS Work Phone: [facility] 12-01-2024 15:50-0400 Body weight 73.39 kg Tammy Brown DO Work Phone: [facility] 12-01-2024 15:50-0400 Diastolic blood pressure 74 mm[Hg] Tammy Kevin DO Work Phone: [facility] 12-01-2024 15:50-0400 Systolic blood pressure 110 mm[Hg] Tammy Kevin DO Work Phone: [facility] 11-17-2024 16:12-0400 Body weight 72.69 kg Imelda Mohan PA Work Phone: [facility] 11-17-2024 16:12-0400 Diastolic blood pressure 76 mm[Hg] Imelda Mohan PA Work Phone: [facility] 11-17-2024 16:12-0400 Systolic blood pressure 102 mm[Hg] Imelda Mohan PA Work Phone: [facility] 11-03-2024 15:58-0400 Body weight 69.4 kg Tammy Kevin DO Work Phone: [facility] 11-03-2024 15:58-0400 Diastolic blood pressure 76 mm[Hg] Tammy Kevin DO Work Phone: [facility] 11-03-2024 15:58-0400 Systolic blood pressure 120 mm[Hg] Tammy Kevin DO Work Phone: [facility] 10-20-2024 16:34-0400 Body weight 72.12 kg Mirtha Dylan [employer]ER Work Phone: [facility] 10-20-2024 16:34-0400 Diastolic blood pressure 74 mm[Hg] Mirtha Dylan [employer] Work Phone: [facility] 10-20-2024 16:34-0400 Systolic blood pressure 118 mm[Hg] Mirtha Dylan [employer] Work Phone: [facility] 08-18-2024 15:52-0500 Body weight 70.94 kg Imelda Mohan PA Work Phone: [facility] 08-18-2024 15:52-0500 Diastolic blood pressure 70 mm[Hg] Imelda SIMMONS Work Phone: [facility] 08-18-2024 15:52-0500 Systolic blood pressure 120 mm[Hg] Imelda SIMMONS Work Phone: [facility] 07-21-2024 16:07-0500 Body weight 69.31 kg Tammy Kevin DO Work Phone: [facility] 07-21-2024 16:07-0500 Diastolic blood pressure 72 mm[Hg] Tammy Kevin DO Work Phone: [facility] 07-21-2024 16:07-0500 Systolic blood pressure 110 mm[Hg] Tammy Kevin DO Work Phone: [facility] 06-17-2024 15:43-0500 Body weight 68.04 kg Tammy Kevin DO Work Phone: [facility] 06-17-2024 15:43-0500 Diastolic blood pressure 72 mm[Hg] Tammy Kevin DO Work Phone: [facility] 06-17-2024 15:43-0500 Systolic blood pressure 118 mm[Hg] Tammy Kevin DO Work Phone: [facility] Encounters Encounter Date Encounter Type Care Provider Facility Start: 12-08-2024 End: 12-08-2024 flow sheet Imelda SIMMONS Work Phone: [facility] Comment on above: 36 weeks gestation o f ; Third trimester Start: 12-08-2024 End: 12-08-2024 Bamboo flowsheet Imelda SIMMONS Work Phone: [facility] Start: 12-08-2024 End: 12-08-2024 Bamboo flowsheet Imelda SIMMONS Work Phone: [facility] Start: 12-01-2024 End: 12-01-2024 flow sheet Tammy Kevin DO Work Phone: [facility] Comment on above: Hematuria, unspecifi ed type (Primary Dx); Third trimester ; 35 weeks gestation of Start: 12-01-2024 End: 12-01-2024 ambulatory TAMMY KEVIN Not Available Start: 12-01-2024 End: 12-01-2024 Bamboo flowsheet Tammy Kevin DO Work Phone: [facility] Start: 12-01-2024 End: 12-01-2024 Bamboo flowsheet Tammy Kevin DO Work Phone: [facility] Start: 11-17-2024 End: 11-17-2024 flow sheet Imelda SIMMONS Work Phone: [facility] Comment on above: Third trimester preg artur; 33 weeks gestation of Start: 11-17-2024 End: 11-17-2024 ambulatory IMELDA MOHAN Not Available Start: 11-17-2024 End: 11-17-2024 Bamboo flowsheet Imelda SIMMONS Work Phone: [facility] Start: 11-17-2024 End: 11-17-2024 Bamboo flowsheet Imelda SIMMONS Work Phone: [facility] Start: 11-11-2024 End: 11-12-2024 Telephone encounter Argenis Castillo MA [facility] Start: 11-10-2024 End: 11-10-2024 Clinisync Result Encounter Tammy Kevin DO Work Phone: [facility] Unsolicited Start: 11-10-2024 End: 11-10-2024 Clinisync Result Encounter Tammy Kevin DO Work Phone: [facility] Unsolicited Start: 11-08-2024 End: 11-08-2024 Clinisync Result Encounter Tammy Kevin DO Work Phone: [facility] Unsolicited Start: 11-08-2024 End: 11-08-2024 Clinisync Result Encounter Tammy Kevin DO Work Phone: [facility] Unsolicited Start: 11-03-2024 End: 11-03-2024 ambulatory TAMMY KEVIN Not Available Start: 11-03-2024 End: 11-03-2024 flow sheet Tammy Kevin DO Work Phone: [facility] Comment on above: Third trimester preg artur; 31 weeks gestation of ; Urinary tract infection without hematuria, site unspecified; size inconsistent with dates Start: 11-03-2024 End: 11-03-2024 Bamboo flowsheet Tammy Kevin DO Work Phone: [facility] Start: 11-03-2024 End: 11-03-2024 Bamboo flowsheet Tammy Kevin DO Work Phone: [facility] Start: 10-20-2024 End: 10-20-2024 ambulatory MIRTHA RICHARDSON Not Available Start: 10-20-2024 End: 10-20-2024 flow sheet Mirtha Richardson [employer] Work Phone: [facility] Comment on above: Urinary tract infect ion without hematuria, site unspecified (Primary Dx); Third trimester ; 29 weeks gestation of Start: 10-20-2024 End: 10-20-2024 Bamboo flowsheet Mirtha Richardson [employer] Work Phone: [facility] Start: 10-20-2024 End: 10-20-2024 Bamboo flowsheet Mirtha Richardson [employer] Work Phone: [facility] Start: 10-12-2024 End: 10-12-2024 Clinisync Result Encounter Tammy Kevin DO Work Phone: [facility] External Department Unsolicited Start: 10-12-2024 End: 10-12-2024 Clinisync Result Encounter Tammy Kevin DO Work Phone: [facility] Unsolicited Start: 09-23-2024 End: 09-23-2024 ambulatory TAMMY KEVIN Not Available Start: 09-15-2024 End: 09-15-2024 ambulatory TAMMY KEVIN Not Available Start: 08-20-2024 End: 08-20-2024 Clinisync Result Encounter Tammy Kevin DO Work Phone: [facility] External Department Unsolicited Start: 08-20-2024 End: 08-20-2024 [...] encounter procedure Tammy Kevin DO Work Phone: [facility] Start: 07-21-2024 End: 07-21-2024 Periodic [...] Date Procedure Procedure Detail Performing Clinician Start: 12-08-2024 Urnls dip stick/tabl et rgnt non-auto w/o micrscp Imelda SIMMONS Work Phone: Start: 11-10-2024 GLUCOSE TOLERANCE 3 HOUR Tammy Kevin DO Work Phone: Start: 11-08-2024 US OB GROWTH Tammy Fazi o DO Work Phone: Start: 11-03-2024 Urnls dip stick/tabl et rgnt non-auto w/o micrscp Tammy Kevin DO Work Phone: Start: 10-20-2024 Urnls dip stick/tabl et rgnt non-auto w/o micrscp Mirtha Richardson NP Work Phone: Start: 10-12-2024 ALL CBC WITH AUTO DIFF Tammy Kevin DO Work Phone: Start: 08-20-2024 US OB CERVICAL LENGTH C [...] Treatment Date Care Activity Detail Author Start: 12-15-2024 End: 12-15-2024 Patient encounter procedure 12/15/2024 3:30 PM EDT Routine [facility] [address] [facility] [place] [phone] Tammy Brown, DO [address] [place] [address] [facility] Start: 12-08-2024 End: 12-08-2024 Patient encounter procedure 12/08/2024 3:20 PM EDT Routine [facility] [address] [place] [phone] Imelda Mohan, PA [address] [place] [address] [facility] Start: 12-08-2024 End: 12-08-2025 CULTURE, GROUP B STREP WITH SUSCEPTIBLITY CULTURE, GROUP B STREP WITH SUSCEPTIBLITY Lab Routine Third trimester Expected: 12/08/2024, Expires: 12/08/2025 [facility] Work Phone: Comment on above: Expected: 12/08/2024 , Expires: 12/08/2025 Start: 12-01-2024 End: 12-01-2024 Patient encounter procedure [facility] Comment on above: Arrived Start: 11-17-2024 End: 11-17-2024 Patient encounter procedure [facility] Comment on above: Arrived Start: 11-03-2024 End: 11-03-2024 Patient encounter procedure 11/03/2024 3:30 PM EDT Routine [facility] [address] [place] [phone] Tammy Brown, DO [address] [place] [address] [facility] Start: 11-03-2024 End: 03-06-2025 US for US OB follow up transabdominal approach Imaging Routine size inconsistent with dates Expected: 11/03/2024, Expires: 03/06/2025 [facility] Comment on above: Expected: 11/03/2024 , Expires: 03/06/2025 Start: 10-20-2024 End: 10-20-2024 Patient encounter procedure 10/20/2024 3:30 PM EDT Routine [facility] [address] [place] [phone] Imelda Mohan PA [address] [place] [address] [facility] Start: 09-15-2024 End: 09-15-2024 Patient encounter procedure 09/15/2024 3:30 PM EDT Routine [facility] [address] [place] [phone] Tammy Brown DO [address] [place] [address] [facility] Start: 08-18-2024 End: 08-18-2024 Patient encounter procedure [facility] Comment on above: Arrived Start: 07-21-2024 End: 07-21-2024 Patient encounter procedure [facility] Comment on above: Arrived Start: 07-21-2024 End: 01-18-2025 Alpha fetoprotein, maternal Alpha fetoprotein, maternal Lab Routine Second trimester 16 weeks gestation of Expected: 07/21/2024 (Approximate), Expires: 01/18/2025 [facility] Comment on above: Expected: 07/21/2024 (Approximate), Expires: 01/18/2025 Start: 07-21-2024 End: 07-21-2025 US for US OB 14+ weeks anatomy scan Imaging Routine Screening, , for anatomic survey Expected: 07/21/2024, Expires: 07/21/2025 [facility] Comment on above: Expected: 07/21/2024 , Expires: 07/21/2025 Start: 06-17-2024 End: 06-17-2025 ABO/Rh ABO/Rh Lab Routine Missed menses , unspecified gestational age Expected: 06/17/2024 (Approximate), Expires: 06/17/2025 [facility] Comment on above: Expected: 06/17/2024 (Approximate), Expires: 06/17/2025 Start: 06-17-2024 End: 06-17-2025 Blood type and Indirect antibody screen panel - Blood Type and screen Lab Routine Missed menses , unspecified gestational age Expected: 06/17/2024 (Approximate), Expires: 06/17/2025 [facility] Work Phone: Comment on above: Expected: 06/17/2024 (Approximate), Expires: 06/17/2025 Start: 06-17-2024 End: 06-17-2025 Drugs of abuse panel - Urine by Screen method Rapid drug screen, urine Lab Routine , unspecified gestational age Encounter for supervision of normal first in first trimester Expected: 06/17/2024 (Approximate), Expires: 06/17/2025 [facility] Comment on above: Expected: 06/17/2024 (Approximate), Expires: 06/17/2025 Start: 06-17-2024 End: 06-17-2025 US Pelvis transvaginal US OB transvaginal Imaging Routine Missed menses Expected: 06/17/2024 (Approximate), Expires: 06/17/2025 [facility] Comment on above: Expected: 06/17/2024 (Approximate), Expires: 06/17/2025 Bacteria identified in Urine by Culture Urine culture Microbiology Routine Urinary tract infection without hematuria, site unspecified Ordered: 10/20/2024 [facility] Work Phone: Comment on above: Ordered: 10/20/2024 Bacteria identified in Urine by Culture Urine culture Microbiology Routine Urinary tract infection without hematuria, site unspecified Ordered: 11/03/2024 [facility] Work Phone: Comment on above: Ordered: 11/03/2024 Bacteria identified in Urine by Culture Urine culture Microbiology Routine Hematuria, unspecified type Ordered: 12/01/2024 [facility] Work Phone: Comment on above: Ordered: 12/01/2024 CBC W Auto Different ial panel - Blood CBC and differential Lab Routine Missed menses , unspecified gestational age Ordered: 06/17/2024 [facility] Comment on above: Ordered: 06/17/2024 CHLAMYDIA TRACHOMATI S (GENITO/STI) CHLAMYDIA TRACHOMATIS (GENITO/STI) Lab Routine STD exposure Ordered: 07/21/2024 [facility] Comment on above: Ordered: 07/21/2024 Cytology Cervical or vaginal smear or scraping study Pap Smear Pathology and Cytology Routine Well woman exam with routine gynecological exam Ordered: 07/21/2024 [facility] Comment on above: Ordered: 07/21/2024 Hemoglobin A1c/Hemoglobin.total in Blood Hemoglobin A1c Lab Routine Missed menses , unspecified gestational age Ordered: 06/17/2024 [facility] Comment on above: Ordered: 06/17/2024 Hepatitis B virus surface Ag [Presence] in Serum or Plasma by Immunoassay Hepatitis B surface antigen Lab Routine Missed menses , unspecified gestational age Ordered: 06/17/2024 [facility] Comment on above: Ordered: 06/17/2024 Hepatitis C virus Ab [Presence] in Serum or Plasma by Immunoassay Hepatitis C antibody Lab Routine Missed menses , unspecified gestational age Ordered: 06/17/2024 [facility] Comment on above: Ordered: 06/17/2024 HIV-1/HIV-2 antigen/antibody combination immunoassay HIV-1 and HIV-2 antibodies Lab Routine Missed menses , unspecified gestational age Ordered: 06/17/2024 [facility] Comment on above: Ordered: 06/17/2024 Neisseria gonorrhoea e DNA [Presence] in Unspecified specimen by SRINIVASAN with probe detection Neisseria gonorrhea DNA probe, direct Lab Routine STD exposure Ordered: 07/21/2024 [facility] Comment on above: Ordered: 07/21/2024 Reagin Ab [Presence] in Serum by RPR RPR Lab Routine Missed menses , unspecified gestational age Ordered: 06/17/2024 [facility] Comment on above: Ordered: 06/17/2024 Rubella antibody, IgG Rubella an tibody, IgG Lab Routine Missed menses , unspecified gestational age Ordered: 06/17/2024 [facility] Comment on above: Ordered: 06/17/2024 SURESWAB(R) ADVANCED VAGINITIS PLUS, TMA SURESWAB(R) ADVANCED VAGINITIS PLUS, TMA Pathology and Cytology Routine Vaginal discharge Ordered: 07/21/2024 [facility] [email or web address] Work Phone: Comment on above: Ordered: 07/21/2024 Payers Date Payer Category Payer Private Health Insurance [facility] [id number] 2023 Unknown [id number] 1996 Unknown [id number] 1996 Unknown [id number] 1996 Unknown [id number] 1996 Unknown [id number] 1996 Unknown [id number] 1996 Unknown [id number] .[id number] 1996 Unknown [id number] .[id number] 1996 Unknown [id number] .[id number] 1996 Unknown [id number] Social History Date Type Detail Facility Tobacco smoking stat [facility] Tobacco smoking consumption unknown [facility] Start: 04-11-2024 [facility] Start: 1995 Sex assigned at Female [facility] Start: 06-16-2024 Gender identity Identifies as female gender (finding) [facility] Start: 06-16-2024 Sexual orientation Heterosexual (fin ding) [facility] Clinical Notes 06-17-2024 to 12-08-2024 Mirtha Richardson NP - 12/08/2024 3:20 PM EDTMirtha Richardson NP - 12/01/2024 3:30 PM TROY Stokes - 11/17/2024 3:40 PM EDTTelephone Encounter - Argenis Castillo MA - 11/11/2024 2:29 PM EDT Note Date & Type Note Facility 12-08-2024 History of Presen t illness Narrative Reason for Appointment: Patient ID: Vanessa Esparza is a 28 y.o. female who presents for Routine Visit Patient presents today for Return OB appointment. MEDICATIONS Current Outpatient Medications Medication Instructions cephalexin (KEFLEX) 500 mg, Oral, Daily ProFe 180 mg, Daily ALLERGIES No Known Allergies PROBLEMS Active Ambulatory [...] Constitutional: Appearance: Normal appearance. She is well-developed. Cardiovascular: Rate and Rhythm: Normal rate and [...] nursing note reviewed. Exam conducted with a tire center manager present. Vitals: There is no height or weight on file to calculate BMI. BP: 118/68 Patient's last menstrual period was 03/28/2024. ASSESSMENT & PLAN ICD-10-CM 1. 36 weeks gestation of Z3A.36 POCT urinalysis dipstick manually resulted 2. Third trimester Z34.93 POCT urinalysis dipstick manually resulted CULTURE, GROUP B STREP WITH SUSCEPTIBLITY CULTURE, GROUP B STREP WITH SUSCEPTIBLITY Return OB: Patient presents today for a routine obstetrics appointment. Patient is currently 36w3d . Patient states she is doing well but has complaints of being tired due to current . Patient has verbalizes frequent movement. labor precautions was discussed/given and patient was instructed to perform kick counts three times a day. Orders Placed This Encounter Procedures CULTURE, GROUP B STREP WITH SUSCEPTIBLITY POCT urinalysis dipstick manually resulted Follow Up: Patient is to return to office in 1 week for routine OB appointment. Documented by Mirtha Richardson NP on behalf of: Mirtha Richardson NP documented in this encounter [facility] 12-01-2024 History of Presen t illness Narrative Reason for Appointment: Patient ID: Vanessa Esparza is a 28 y.o. female who presents for Routine Visit Patient presents today for Return OB appointment. MEDICATIONS Current Outpatient Medications Medication Instructions cephalexin (KEFLEX) 500 mg, Oral, Daily ALLERGIES No Known Allergies PROBLEMS Active Ambulatory [...] Constitutional: Appearance: Normal appearance. She is well-developed. Cardiovascular: Rate and Rhythm: Normal rate and [...] nursing note reviewed. Exam conducted with a tire center manager present. Vitals: There is no height or weight on file to calculate BMI. BP: 110/74 Patient's last menstrual period was 03/28/2024. ASSESSMENT & PLAN ICD-10-CM 1. Third trimester Z34.93 2. 35 weeks gestation of Z3A.35 Return OB: Patient presents today for a routine obstetrics appointment. Patient is currently 35w3d . Patient states she is doing well but has complaints of being tired due to current . Patient has verbalizes frequent movement. labor precautions was discussed/given and patient was instructed to perform kick counts three times a day. Patient with recent treatment for UTI with Keflex noted hematuria on urinalysis today. We will send urine for culture . No orders of the defined types were placed in this encounter. Follow Up: Patient is to return to office in 1 week for routine OB appointment. Documented by Mirtha Richardson NP on behalf of: Tammy Brown DO documented in this encounter [facility] 11-17-2024 History of Presen t illness Narrative Reason for Appointment: Patient ID: Vanessa Esparza is a 28 y.o. female who presents for Routine Visit Patient presents today for Return OB appointment. MEDICATIONS Current Outpatient Medications Medication Instructions cephalexin (KEFLEX) 500 mg, Oral, Daily nitrofurantoin (macrocrystal-monohydrate) (MACROBID) 100 mg, Oral, 2 times daily ALLERGIES No Known Allergies PROBLEMS Active Ambulatory [...] weight on file to calculate BMI. BP: 102/76 Patient's last menstrual period was 03/28/2024. ASSESSMENT & PLAN ICD-10-CM 1. Third trimester Z34.93 2. 33 weeks gestation of Z3A.33 Return OB: Patient presents today for a routine obstetrics appointment. Patient is currently 33w3d . Patient states she is doing well but has complaints of being tired due to current . Patient has verbalizes frequent movement. labor precautions was discussed/given and patient was instructed to perform kick counts three times a day. No orders of the defined types were placed in this encounter. Follow Up: Patient is to return to office in 2 week for routine OB appointment. Documented by TROY Mi on behalf of: TROY Mi documented in this encounter [facility] 11-11-2024 Telephone encount er Note Hi, this is Vanessa Esparza. I had a couple questions regarding a prescription. You can give me a call back. My number is [phone]. Thank you. OB: 32wd [place]: 01/02/2025 Pt called in stating she ran out of her medication for her UTI. States feeling better but concerned as she has frequent uti's and starts to feel worse once stopping meds.. Pt states maintenance dose was discussed with dr. Brown. Pt aware that is currently out of office. Sent in Ask The [facility] in the meantime. Please advise on maintenance dose for frequent UTI's [facility] 11-11-2024 Miscellaneous Notes Formattin g of this note might be different from the original. Hi, this is Vanessa Esparza. I had a couple questions regarding a prescription. You can give me a call back. My number is [phone]. Thank you. OB: 32w5d [place]: 01/02/2025 Pt called in stating she ran out of her medication for her UTI. States feeling better but concerned as she has frequent uti's and starts to feel worse once stopping meds.. Pt states maintenance dose was discussed with dr. Brown. Pt aware that is currently out of office. Sent in Ask [facility] Doctor in the meantime. Please advise on maintenance dose for frequent UTI's documented in this encounter [facility] 11-03-2024 History of Presen t illness Narrative Reason for Appointment: Patient ID: Vanessa Esparza is a 28 y.o. female who presents for Routine Visit and UTI (Patient having frequent urination along w/lower back pain. Pt was seen in urgent care on 10/22/2024 for a UTI was given Amoxicillin and then in our office for OB visit and was given Macrobid to start taking and stop Amox. Pt called office on 11/02/2024 with continued UTI issues and macrobid was called into pharmacy again and patient is feeling some relief after being on it for 2 days. ) Patient presents today for Return OB appointment. MEDICATIONS Current Outpatient Medications Medication Instructions iron polysaccharides (PROFE) 391.3 mg, Oral, Daily nitrofurantoin (macrocrystal-monohydrate) (MACROBID) 100 mg, Oral, 2 times daily ALLERGIES No Known Allergies PROBLEMS Active Ambulatory [...] SYSTEMS Review of Systems: Review of Systems OBJECTIVE Objective: OBGyn Exam Vitals: There is no height or weight on file to calculate BMI. BP: 120/76 Patient's last menstrual period was 03/28/2024. ASSESSMENT & PLAN ICD-10-CM 1. Third trimester Z34.93 POCT urinalysis dipstick manually resulted 2. 31 weeks gestation of Z3A.31 3. Urinary tract infection without hematuria, site unspecified N39.0 Return OB: Patient presents today for a routine obstetrics appointment. Patient is currently 31w3d . Patient states she is doing well but has complaints of being tired due to current . Patient has verbalizes frequent movement. labor precautions was discussed/given and patient was instructed to perform kick counts three times a day. Orders Placed This Encounter Procedures Urine culture US OB follow up transabdominal approach POCT urinalysis dipstick manually resulted Follow Up: Patient is to return to office in 2 week for routine OB appointment. Documented by Nataly Sexton LPN on behalf of: Tammy Brown DO documented in this encounter [facility] 10-20-2024 History of Presen t illness Narrative Reason for Appointment: Patient ID: Vanessa Esparza is a 28 y.o. female who presents for Routine Visit Patient presents today for Return OB appointment. MEDICATIONS Current Outpatient Medications Medication Instructions iron polysaccharides (PROFE) 391.3 mg, Oral, Daily ALLERGIES No Known Allergies PROBLEMS Active Ambulatory [...] Constitutional: Appearance: Normal appearance. She is well-developed. Cardiovascular: Rate and Rhythm: Normal rate and [...] nursing note reviewed. Exam conducted with a tire center manager present. Vitals: There is no height or weight on file to calculate BMI. BP: 118/74 Patient's last menstrual period was 03/28/2024. ASSESSMENT & PLAN ICD-10-CM 1. Third trimester Z34.93 POCT urinalysis dipstick manually resulted 2. 29 weeks gestation of Z3A.29 Return OB: Patient presents today for a routine obstetrics appointment. Patient is currently 29w3d . Patient states she is doing well but has complaints of being tired due to current . Patient has verbalizes frequent movement. labor precautions was discussed/given and patient was instructed to perform kick counts three times a day. Orders Placed This Encounter Procedures POCT urinalysis dipstick manually resulted Follow Up: Patient is to return to office in 3 week for routine OB appointment. Patient was seen in Urgent Care on of this month With UTI symptoms. She was placed on Amoxicillin per Urgent Care and reports no further symptoms. We are going to send today's urine specimen for culture. Documented by Mirtha Richardson NP on behalf of: Mirtha Richardson NP documented in this encounter [facility] 08-18-2024 History of Presen t illness Narrative [...] of: TROY Mi documented in this encounter [facility] 07-21-2024 History of Presen t illness Narrative [...] nursing note reviewed. Exam conducted with a tire center manager present. Vitals: There is no height or [...] Tammy Brown DO documented in this encounter [facility] 06-17-2024 History of Presen t illness Narrative [...] meat, and stay away from [facility]. Patient has also been advised to not [...] Whit Bourgeois MA documented in this encounter [facility] Evaluation note Diagnosis Missed menses 11 weeks gestation of , unspecified gestational age Encounter for supervision of normal first in first trimester documented [facility] Diagnosis Screening, , for anatomic survey Encounter for anatomic survey Well woman exam with routine gynecological exam Routine gynecological examination Second trimester state, incidental 16 weeks gestation of Vaginal discharge Leukorrhea, not specified as infective STD exposure documented [facility] Diagnosis 20 weeks gestation of Second trimester state, incidental documented [facility] Diagnosis Urinary tract infection without hematuria, site unspecified- Primary Third trimester state, incidental 29 weeks gestation of documented [facility]* Diagnosis Third trimester state, incidental 31 weeks gestation of Urinary tract infection without hematuria, site unspecified size inconsistent with dates documented [facility] Diagnosis Acute cystitis without hematuria documented [facility] Diagnosis Third trimester state, incidental 33 weeks gestation of documented [facility] Diagnosis Hematuria, unspecified type- Primary Third trimester state, incidental 35 weeks gestation of documented [facility] Diagnosis 36 weeks gestation of Third trimester state, incidental documented in this encounter [facility] Summary Purpose Family History No Family History Records Found Advance Directives No Advanced Directives Records Found Additional Source Comments Reason for Visit (unrecogniz ed section and content) Reason Comments Amenorrhea Reason Comments Routine Visit STI Screening Gynecologic Exam Reason Comments Routine Visit Reason Comments Routine Visit UTI Patient having frequ ent urination along w/lower back pain. Pt was seen in urgent care on 10/22/2024 for a UTI was given Amoxicillin and then in our office for OB visit and was given Macrobid to start taking and stop Amox. Pt called office on 11/02/2024 with continued UTI issues and macrobid was called into pharmacy again and patient is feeling some relief after being on it for 2 days. INFORMATION SOURCE (unrecogn ized section and content) DATE CREATED AUTHOR 12/02/2024 [facility] FOR RECORDS PERTAINING TO PATIENTS WHO ARE [...] BE BASED ON THE PRIMARY CLINICAL RECORDS. [facility] [employer] provides no warranty or guarantee of the accuracy or completeness of information in this document.
== END 2024-12-08 20:14 | disposition home or self-care (01) ==
LOC: LAB 20:13
PROVIDERS: Visit Provider Physician Assistant
DX: Z34.93 Encounter for supervision of normal pregnancy, unspecified, third trimester (principal)
CPT/HCPCS: 87081

== ENCOUNTER 2025-01-02 10:34 | Inpatient (IN) | payer OTHER, SELFPAY ==
[2025-01-02] VITALS (14 sets, daily range): BP systolic 100–122; BP diastolic 57–71; PULSE 66–97; TEMP 36.1–36.8
--- OUTSIDE RECORDS SUMMARY | 2025-01-02 10:39 | XMS_ITS | CCD ---
Author Organization [facility] Care Team Providers Care Coating Operator Name Role Phone Unavailable Primary Care Provider Unavailabl e KEVIN, TAMMY Attending Unavailable MARQUES, IMELDA Attending Unavailable KEVIN, TAMMY Attending Unavailable KEVIN, TAMMY Referring Unavailable MIRTHA RICHARDSON Attending Unavailable KEVIN, TAMMY Attending Unavailable MARQUES, IMELDA Attending Unavailable KEVIN, TAMMY Attending Unavailable MARQUES, IMELDA Attending Unavailable KEVIN, TAMMY Attending Unavailable KEVIN, TAMMY Attending Unavailable KEVIN, TAMMY Attending Unavailable Medications Current Medications Medication Drug Class(es) Dates Sig (Normalized) Sig (Original) cephalexin 500 mg oral capsule (16 sources) Cephalosporin Antibacterial Start: 11-17-2024 End: 12-17-2024 [...] polysaccharide iron complex 391 mg oral capsule (20 sources) Start: 11-23-2024 take 1 capsule by [...] / nitrofurantoin, monohydrate 75 mg oral capsule (18 sources) Nitrofuran Antibacterial Start: 12-22-2024 End: 12-29-2024 take 1 capsule by mouth in the morning nitrofurantoin, macrocrystal-monoh ydrate, (Macrobid) 100 MG capsule Indications: Acute cystitis without hematuria Take 1 capsule (100 mg) by mouth in the morning and 1 capsule (100 mg) before bedtime. Do all this for 7 days. 14 capsule 12/22/2024 12/29/2024 Start: 12-02-2024 End: 12-09-2024 take 1 capsule by mouth in the morning nitrofurantoin, macrocrystal-monohydrate , (Macrobid) 100 MG capsule Indications: Enterococcus UTI [...] 07-21-2024 Episodic Other and delivery including normal (20 sources) ; Translations: [Encounter for supervision of [...] [36 weeks gestation of ] 12-08-2024 Episodic Residual codes; unclassified (4 sources) Gestation period, 37 weeks; Translations: [37 weeks gestation of ] 12-15-2024 Episodic Residual codes; unclassified (2 sources) Gestation period, 39 weeks; Translations: [39 weeks gestation of ] 12-29-2024 Episodic Urinary tract infections (7 sources) Urinary tract infectious disease; Translations: [Urinary tract infection, site not specified] 10-20-2024 Episodic Results Test Name Value Interpretation Reference Range Facility Urinalysis macro (dipstick) panel (U)on 12-29-2024 Bilirubin, UA Negative Negative - 4(70) +++ mg/dL [facility] Blood, UA Negative Negative - 50 Ayaz/mcL [facility] Clarity, UA Clear [facility] re Color, UA Yellow [facility] Glucose, UA Negative Negative - 1999(110) ++++ mg/dL [facility] Interpretation and review of laboratory results Normal [facility] Ketones, UA Negative Negative - 160(16) ++++ mg/dL [facility] Leukocytes, UA Negative Negative - 500+++ Marcell/mcL [facility] Nitrite, UA Negative Negative - Positive [facility] pH, UA 7 5 - 9 [facility], UA Negative Negative - 1999(20) ++++ mg/dL [facility] Spec Grav, UA 1.02 1 - 1.03 [facility] Urobilinogen, UA 1.0 0.2 - 12 mg/dL [facility] e Urinalysis macro (dipstick) panel (U)on 12-22-2024 Bilirubin, UA Negative Negative - 4(70) +++ mg/dL [facility] Blood, UA Negative Negative - 50 Ayaz/mcL [facility] Clarity, UA Clear [facility] re Color, UA Yellow [facility] Glucose, UA Negative Negative - 1999(110) ++++ mg/dL [facility] Interpretation and review of laboratory results Normal [facility] Ketones, UA Negative Negative - 160(16) ++++ mg/dL [facility] Leukocytes, UA Negative Negative - 500+++ Marcell/mcL [facility] Nitrite, UA Negative Negative - Positive [facility] pH, UA 6.5 5 - 9 [facility] Health[facility] e Protein, UA Negative Negative - 1999(20) ++++ mg/dL [facility] Healthcare Spec Grav, UA 1.01 1 - 1.03 [facility] Urobilinogen, UA 0.2 0.2 - 12 mg/dL [facility] Urinalysis macro (dipstick) panel (U)on 12-15-2024 Bilirubin, UA Negative Negative - 4(70) +++ mg/dL [facility] Blood, UA Positive Negative - 50 Ayaz/mcL [facility] Healthcare Comment on above: trace Clarity, UA Cloudy [facility] re Color, UA Yellow [facility] Health[facility] e Glucose, UA Negative Negative - 1999(110) ++++ mg/dL [facility] Interpretation and review of laboratory results Abnormal [facility] Ketones, UA Negative Negative - 160(16) ++++ mg/dL [facility] Leukocytes, UA Trace Negative - 500+++ Marcell/mcL [facility] Nitrite, UA Negative Negative - Positive [facility] pH, UA 8.5 5 - 9 [facility] Health[facility] e Protein, UA Trace Negative - 1999(20) ++++ mg/dL [facility] Spec Grav, UA 1.015 1 - 1.03 [facility] Urobilinogen, UA 1.0 0.2 - 12 mg/dL [facility] Urinalysis macro (dipstick) panel (U)on 12-08-2024 Bilirubin, UA Negative Negative - 4(70) +++ mg/dL [facility] Blood, UA Positive Negative - 50 Ayaz/mcL [facility] Clarity, UA Clear [facility] re Color, UA Yellow [facility] Health[facility] Glucose, UA Negative Negative - 1999(110) ++++ mg/dL [facility] Interpretation and review of laboratory results Abnormal [facility] Ketones, UA Negative Negative - 160(16) ++++ mg/dL [facility] Leukocytes, UA Negative Negative - 500+++ Marcell/mcL [facility] Nitrite, UA Negative Negative - Positive [facility] pH, UA 7 5 - 9 [facility] Protein, UA Negative Negative - 2000(20) ++++ mg/dL [facility] Spec Grav, UA 1.02 1 - 1.03 [facility] Urobilinogen, UA 0.2 0.2 - 12 mg/dL [facility] Health[facility] e GLUCOSE TOLERANCE 3 HOURon 0 11-10-2024 GLUCOSE TOLERANCE 3 HOUR mg/dL [facility] Comment on above: GLU FAST 86 (<95) Co l: 11/10/24 1318 GLU 1HR 96 (<180) Col: 11/10/24 1423 GLU 2HR 97 (<155) Col: 11/10/24 1522 GLU 3HR 90 (<140) Col: 11/10/24 1624 [facility] e US OB GROWTHon 11-08-2024 [place] [address] Ultrasound Report Signed Patient: VANESSA ESPARZA MR#: [id number] : 1995 Acct:[id number] Age/Sex: 28 / F ADM Date: 11/08/24 Loc: LAB Attending Dr: Tammy Brown D.O. Ordering Physician: Tammy Brown D.O. Date of Service: 11/08/24 Procedure(s): US OB growth Accession Number(s): [id number] cc: Tammy Brown D.O.; Physician,Non-Staff M.D. [facility] [place] [id number] Patient Name: VANESSA ESPARZA MRN: [id number] date: 1995 Sex: F Assigned Patient Location: LAB Current Patient Location: LAB Accession/Order Number: [id number] Exam Date: 11/08/2024 22:34 Report Date: 11/08/2024 [...] Mason M.D. 11/08/2024 10:37 PM Dictation Location: [employer] Electronically authenticated by: [id number] Y Date: 11/08/2024 22:37 Dictated By: Calin Mason D.O. Signed By: 11/08/242239 DD/ 36 TD/TT: Senior Engineering Specialist: [facility] Radiology, Radiologist, - 11/08/2024 [place] [address] Ultrasound Report Signed Patient: VANESSA ESPARZA MR#: [id number] : 1995 Acct:[id number] Age/Sex: 28 / F ADM Date: 11/08/24 Loc: LAB Attending Dr: Tammy Brown D.O. Ordering Physician: Tammy Brown D.O. Date of Service: 11/08/24 Procedure(s): US OB growth Accession Number(s): [id number] cc: Tammy Brown D.O.; Physician,Non-Staff [place] [facility] [place] [id number] Patient Name: VANESSA ESPARZA MRN: [facility]:[id number] date: 1995 Sex: F Assigned Patient Location: LAB Current Patient Location: LAB Accession/Order Number: [id number] Exam Date: 11/08/2024 22:34 Report Date: 11/08/2024 [...] Mason M.D. 11/08/2024 10:37 PM Dictation Location: [employer] Electronically authenticated by: [id number] Y Date: 11/08/2024 22:37 Dictated By: Calin Mason D.O. Signed By: 11/08/242239 DD/ 36 TD/TT: Senior Engineering Specialist: [facility] Radiology Study observation (narrative) [facility] OB GROWTHOrdered By: Janelle ologyani Radiology on 11-08-2024 [facility] [employer] Work Phone: Urinalysis macro (dipstick) panel (U)on 11-03-2024 Bilirubin, UA Positive Negative - 4(70) +++ mg/dL [facility] Comment on above: small Blood, UA Positive Negative - 50 Ayaz/mcL [facility] Comment on above: moderate Clarity, UA Clear [facility] [employer] re Color, UA Christine [facility] [employer] Glucose, UA Negative Negative - 1999(110) ++++ mg/dL [facility] Interpretation and review of laboratory results Abnormal [facility] Ketones, UA Positive Negative - 160(16) ++++ mg/dL [facility] Comment on above: trace Leukocytes, UA Positive Negative - 500+++ Marcell/mcL [facility] Comment on above: large Nitrite, UA Positive Negative - Positive [facility] Comment on above: positive pH, UA 6.5 5 - 9 [facility] [employer] Protein, UA Positive Negative - 1999(20) ++++ mg/dL [facility] Comment on above: 100 Spec Grav, UA 1.02 1 - 1.[address] [facility] Urobilinogen, UA 0.2 0.2 - 12 mg/dL [facility] Urinalysis macro (dipstick) panel (U)on 10-20-2024 Bilirubin, UA Negative Negative - 4(70) +++ mg/dL [facility] Blood, UA Negative Negative - 50 Ayaz/mcL [facility] Clarity, UA Clear [facility] re Color, UA Yellow [facility] Glucose, UA Negative Negative - 1999(110) ++++ mg/dL [facility] Interpretation and review of laboratory results Abnormal [facility] Ketones, UA Positive Negative - 160(16) ++++ mg/dL [facility] Comment on above: 15 Leukocytes, UA Trace Negative - 500+++ Marcell/mcL [facility] Nitrite, UA Negative Negative - Positive [facility] pH, UA 6 5 - 9 [facility] e Protein, UA Positive Negative - 1999(20) ++++ mg/dL [facility] Comment on above: 30 Spec Grav, UA 1.025 1 - 1.03 [facility] Urobilinogen, UA 0.2 0.2 - 12 mg/dL [facility] Health[facility] e ALL CBC WITH AUTO DIFFon BASOPHILS ABSOLUTE AUTO 0 [facility] Basophils/100 WBC (Bld) 0.2 % 0.2 - 2.0 % [facility] Eosinophils/100 WBC (Bld) 0.7 % Low 0.9 - 7.0 % [facility] Erythrocyte distribution width (RBC) [Ratio] 12.2 % 11.0 - 15.0 % [facility] Hematocrit (Bld) [Volume fraction] 30.9 % Low 36.0 - 48.0 % [facility] e Hemoglobin (Bld) [Mass/Vol] 10.2 g/dL Low 12.0 - 16.0 g/dL [facility] IMMATURE GRANULOCYTES ABS AUTO 0.03 [facility] Immature granulocytes/100 WBC (Bld) 0.3 % 0.0 - 0.5 % [facility] Interpretation and review of laboratory results Abnormal [facility] LYMPHOCYTES ABSOLUTE AUTO 1.4 [facility] Lymphocytes/100 WBC (Bld) 13.8 % Low 20.5 - 60.0 % [facility] MCH (RBC) [Entitic mass] 28.4 pg 26.7 - 34.0 pg [facility] MCHC (RBC) [Mass/Vol] 33 g/dL 29.9 - 35.2 g/dL [facility] MCV (RBC) [Entitic vol] 86.1 fL 81.0 - 99.0 fL [facility] MONOCYTES ABSOLUTE AUTO 0.5 [facility] Monocytes/100 WBC (Bld) 4.7 % 1.7 - 12.0 % [facility] NEUTROPHILS ABSOLUTE AUTO 8.1 High [facility] Neutrophils/100 WBC (Bld) 80.3 % High 43.0 - 75.0 % [facility] Platelet mean volume (Bld) [Entitic vol] 10 fL 9.5 - 13.5 fL [facility] EO # 0.1 [facility] PLT 318 [facility] RBC 3.59 Low [facility] WBC 10.1 [facility] US OB LIMITED 1+ FETUSESon 0 09-23-2024 [...] II, MD, PHD at 23-Sep-2024 11:17:43 PM [facility] Normal Not Available Comment on above: Order Comment: US OB INCOMPLETE ANATOMY Estimated Date of Delivery: 01/02/25 Gestational Age as of 08/24/2024: 21w2d ALL CBC WITH AUTO DIFFon BASOPHILS ABSOLUTE AUTO 0 [facility] Basophils/100 WBC (Bld) 0.2 % 0.2 - 2.0 % [facility] Eosinophils/100 WBC (Bld) 0.6 % Low 0.9 - 7.0 % [facility] Erythrocyte distribution width (RBC) [Ratio] 12.5 % 11.0 - 15.0 % [facility] Hematocrit (Bld) [Volume fraction] 32 % Low 36.0 - 48.0 % [facility] Hemoglobin (Bld) [Mass/Vol] 10.9 g/dL Low 12.0 - 16.0 g/dL [facility] IMMATURE GRANULOCYTES ABS AUTO 0.05 High [facility] Immature granulocytes/100 WBC (Bld) 0.4 % 0.0 - 0.5 % [facility] Interpretation and review of laboratory results Abnormal [facility] LYMPHOCYTES ABSOLUTE AUTO 1.4 [facility] Lymphocytes/100 WBC (Bld) 11.3 % Low 20.5 - 60.0 % [facility] MCH (RBC) [Entitic mass] 30.4 pg 26.7 - 34.0 pg [facility] MCHC (RBC) [Mass/Vol] 34.1 g/dL 29.9 - 35.2 g/dL [facility] MCV (RBC) [Entitic vol] 89.1 fL 81.0 - 99.0 fL [facility] MONOCYTES ABSOLUTE AUTO 0.7 [facility] Monocytes/100 WBC (Bld) 5.6 % 1.7 - 12.0 % [facility] NEUTROPHILS ABSOLUTE AUTO 10.1 High [facility] Neutrophils/100 WBC (Bld) 81.9 % High 43.0 - 75.0 % [facility] Platelet mean volume (Bld) [Entitic vol] 9.9 fL 9.5 - 13.5 fL [facility] EO # 0.1 [facility] PLT 275 [facility] RBC 3.59 Low [facility] WBC 12.4 High [facility] US OB ANATOMYon 08-20-2024 [place] [address] Ultrasound Report Signed Patient: VANESSA ESPARZA MR#: [id number] : 1995 Acct:[id number] Age/Sex: 28 / F ADM Date: 08/20/24 Loc: LAB Attending Dr: Tammy Brown D.O. Ordering Physician: Tammy Brown D.O. Date of Service: 08/20/24 Procedure(s): US OB anatomy Accession Number(s): [id number] cc: Tammy Brown D.O.; Physician,Non-Staff [place] [facility] [place] [id number] Patient Name: VANESSA ESPARZA MRN: [facility]:[id number] date: 1995 Sex: F Assigned Patient Location: LAB Current Patient Location: LAB Accession/Order Number: [id number] Exam Date: 08/20/2024 22:19 Report Date: 08/20/2024 [...] Braun Jr., D.O.08/20/2024 10:29 PM Dictation Location: [place] [address] Electronically authenticated by: [id number] Y Date: 08/20/2024 22:29 Dictated By: Don Braun M.D. Signed By: 08/20/242231 DD/ 28 TD/TT: Senior Engineering Specialist: [facility] Radiology, Radiologist, - 08/20/[address] [address] Ultrasound Report Signed Patient: VANESSA ESPARZA MR#: [id number] : 1995 Acct:[id number] Age/Sex: 28 / F ADM Date: 08/20/24 Loc: LAB Attending Dr: Tammy Brown D.O. Ordering Physician: Tammy Brown D.O. Date of Service: 08/20/24 Procedure(s): US OB anatomy Accession Number(s): [id number] cc: Tammy Brown D.O.; Physician,Non-Staff [place] [address] Patient Name: VANESSA ESPARZA MRN: [facility]:[id number] date: 1995 Sex: F Assigned Patient Location: LAB Current Patient Location: LAB Accession/Order Number: [id number] Exam Date: 08/20/2024 22:19 Report Date: 08/20/2024 [...] Braun Jr., D.O.08/20/2024 10:29 PM Dictation Location: [place] [address] Electronically authenticated by: [id number] Y Date: 08/20/2024 22:29 Dictated By: Don Braun M.D. Signed By: 08/20/242231 DD/ 28 TD/TT: Senior Engineering Specialist: [facility] Radiology Study observation (narrative) [facility] US OB ANATOMYOrdered By: iHmanshu de leónogyani Radiology on 08-20-2024 [facility]: US OB CERVICAL LENGTHon 08-01 [place] [address] Ultrasound Report Signed Patient: VANESSA ESPARZA MR#: [id number] : 1995 Acct:[id number] Age/Sex: 28 / F ADM Date: 08/20/24 Loc: LAB Attending Dr: Tammy Brown D.O. Ordering Physician: Tammy Brown D.O. Date of Service: 08/20/24 Procedure(s): US OB cervical length Accession Number(s): [id number] cc: Tammy Brown D.O.; Physician,Non-Staff [place] [id number] Patient Name: VANESSA ESPARZA MRN: [id number] date: 1995 Sex: F Assigned Patient Location: LAB Current Patient Location: LAB Accession/Order Number: [id number] Exam Date: 08/20/2024 22:30 Report Date: 08/20/2024 [...] Braun Jr., D.O.08/20/2024 10:30 PM Dictation Location: [place] [address] Electronically authenticated by: [id number] Y Date: 08/20/2024 22:30 Dictated By: Don Braun M.D. Signed By: 08/20/242232 DD/ 29 TD/TT: Senior Engineering Specialist: [facility] Radiology, Radiologist, MD - 08/20/2024 [place] [address] Ultrasound Report Signed Patient: VANESSA ESPARZA MR#: [id number] : 1995 Acct:[id number] Age/Sex: 28 / F ADM Date: 08/20/24 Loc: LAB Attending Dr: Tammy Brown D.O. Ordering Physician: Tammy Brown D.O. Date of Service: 08/20/24 Procedure(s): US OB cervical length Accession Number(s): [id number] cc: Tammy Brown D.O.; Physician,Non-Staff [place] [facility] [place] [id number] Patient Name: VANESSA ESPARZA MRN: [facility]:[id number] date: 1995 Sex: F Assigned Patient Location: LAB Current Patient Location: LAB Accession/Order Number: [id number] Exam Date: 08/20/2024 22:30 Report Date: 08/20/2024 [...] Braun Jr., D.O.08/20/2024 10:30 PM Dictation Location: [employer] Electronically authenticated by: [id number] Y Date: 08/20/2024 22:30 Dictated By: Don Braun M.D. Signed By: 08/20/242232 DD/ 29 TD/TT: Senior Engineering Specialist: [facility] Radiology Study observation (narrative) [facility] US OB CERVICAL LENGTHOrdered By: Radiologist Radiology on 08-20-2024 [facility] [employer] Work Phone: Urinalysis macro (dipstick) panel (U)on 08-18-2024 Bilirubin, UA Negative Negative - 4(70) +++ mg/dL [facility] Blood, UA Negative Negative - 50 Ayaz/mcL [facility] Clarity, UA Clear [facility] [employer] re Color, UA Yellow [facility] [employer] Glucose, UA Negative Negative - 1999(110) ++++ mg/dL [facility] Interpretation and review of laboratory results Abnormal [facility] Ketones, UA Positive Negative - 160(16) ++++ mg/dL [facility] Leukocytes, UA Trace Negative - 500+++ Marcell/mcL [facility] Nitrite, UA Negative Negative - Positive [facility] pH, UA 6.5 5 - 9 [facility] [employer] Protein, UA Negative Negative - 1999(20) ++++ mg/dL [facility] Spec Grav, UA 1.025 1 - 1.03 [facility] Urobilinogen, UA 0.2 0.2 - 12 mg/dL [facility] [employer] IGP,APTIMA HPV,AGE GDLNon AGE GDLN ACOG TESTING Note . [facility] Comment on above: TESTS RESULT FLAG UN ITS REF RANGE LAB Clinician Provided Cytology Information Source.............Cervix No. of containers..01 ThinPrep Vial Age Spencer TORRES Mari... FLAG LEGEND: L-Low Normal,H-High Normal,LL-Alert Low,HH-Alert High <-Panic Low,>-Panic High,A-Abnormal,AA-Critical Abnormal Performed at: 01 =G [facility] [address] [place] [address] Melba Leal MD, IGP, RFX APTIMA HPV ASCU Note . [facility] Comment on above: TESTS RESULT FLAG UN ITS REF RANGE LAB DIAGNOSIS: 02 NEGATIVE FOR INTRAEPITHELIAL LESION OR MALIGNANCY. Specimen adequacy: 02 Satisfactory for evaluation. Endocervical and/or squamous metaplastic cells (endocervical component) are present. Performed by: 02 Imelda Vee, Clinic Office Coordinator ([facility]) . 02 Note: Note 02 The [...] <-Panic Low,>-Panic High,A-Abnormal,AA-Critical Abnormal Performed at: [address] [address] Melba Leal MD, Performed at: =[facility] [id number] Process Engineer: Melba Leal MD, Phone: [phone] Performed at: [address] [id number] Process Engineer: Melba Leal MD, Phone: [phone] SPATULA-ALONE CERVIX [facility] Health[facility] e RECURRENT VAGINITIS (HTRX)on 07-23-2024 ATOPOBIUM VAGINAE 21.785 Abnormal [facility] ATOPOBIUM VAGINAE Detected Abnormal [facility] BVAB 2,3 (BACTERIAL VAGINOSIS ASSOCIATED BACTERIA 2, 3); MOBILUNCUS SPP 10.615 Abnormal [facility] Healthcare BVAB 2,3 (BACTERIAL VAGINOSIS ASSOCIATED BACTERIA 2, 3); MOBILUNCUS SPP Detected Abnormal [facility] Healthcare MOLINA ALBICANS, PARAPSILOSIS, TROPICALIS 0 [facility] MOLINA ALBICANS, PARAPSILOSIS, TROPICALIS Not detected [facility] MOLINA GLABRATA 0 [facility] MOLINA GLABRATA Not detected [facility] MOLINA KRUSEI 0 [facility] MOLINA KRUSEI Not detected [facility] CHLAMYDIA TRACHOMATIS 0 [facility] CHLAMYDIA TRACHOMATIS Not detected [facility] Healthcare ERMB, C; MEFA 16.03 Abnormal [facility] Health care ERMB, C; MEFA Detected Abnormal [facility] care GARDNERELLA VAGINALIS 24.033 Abnormal [facility] GARDNERELLA VAGINALIS Detected Abnormal [facility] Interpretation and review of laboratory results Abnormal [facility] Healthcare MEGASPHAERA (TYPES 1, 2) 0 [facility] MEGASPHAERA (TYPES 1, 2) Not detected [facility] MYCOPLASMA GENITALIUM 0 [facility] MYCOPLASMA GENITALIUM Not detected [facility] NEISSERIA GONORRHOEAE 0 [facility] NEISSERIA GONORRHOEAE Not detected [facility] TET B, TET M 18.821 Abnormal [facility] are TET B, TET M Detected Abnormal [facility] Healthc are TRICHOMONAS VAGINALIS 0 [facility] TRICHOMONAS VAGINALIS Not detected [facility] Vital Signs Date Time Vital Sign Value Performing Clinician Faci lity 12-29-2024 15:30-0400 Body weight 72.35 kg Tammy Kevin DO Work Phone: [facility] 12-29-2024 15:30-0400 Diastolic blood pressure 80 mm[Hg] Tammy Kevin DO Work Phone: [facility] 12-29-2024 15:30-0400 Systolic blood pressure 110 mm[Hg] Tammy Kevin DO Work Phone: [facility] 12-23-2024 09:16-0400 Body weight 72.76 kg Tammy Kevin DO Work Phone: [facility] 12-23-2024 09:16-0400 Diastolic blood pressure 80 mm[Hg] Tammy Kevin DO Work Phone: [facility] 12-23-2024 09:16-0400 Systolic blood pressure 108 mm[Hg] Tammy Kevin DO Work Phone: [facility] 12-15-2024 15:55-0400 Body weight 72.12 kg Tammy Kevin DO Work Phone: [facility] 12-15-2024 15:55-0400 Diastolic blood pressure 70 mm[Hg] Tamym Kevin DO Work Phone: [facility] 12-15-2024 15:55-0400 Systolic blood pressure 120 mm[Hg] Tammy Kevin DO Work Phone: [facility] 12-08-2024 15:32-0400 Body weight 70.94 kg Imelda Marques PA Work Phone: [facility] 12-08-2024 15:32-0400 Diastolic blood pressure 68 mm[Hg] Imelda La Belle PA Work Phone: [facility] 12-08-2024 15:32-0400 Systolic blood pressure 118 mm[Hg] Imelda Marques PA Work Phone: [facility] 12-01-2024 15:50-0400 Body weight 73.39 kg Tammy Kevin DO Work Phone: [facility] 12-01-2024 15:50-0400 Diastolic blood pressure 74 mm[Hg] Tammy Kevin DO Work Phone: [facility] 12-01-2024 15:50-0400 Systolic blood pressure 110 mm[Hg] Tammy Kevin DO Work Phone: [facility] 11-17-2024 16:12-0400 Body weight 72.69 kg Imelda Marques PA Work Phone: [facility] 11-17-2024 16:12-0400 Diastolic blood pressure 76 mm[Hg] Imelda Marques PA Work Phone: [facility] 11-17-2024 16:12-0400 Systolic blood pressure 102 mm[Hg] Imelda Marques PA Work Phone: [facility] 11-03-2024 15:58-0400 Body weight 69.4 kg Tammy Kevin DO Work Phone: [facility] 11-03-2024 15:58-0400 Diastolic blood pressure 76 mm[Hg] Tammy Kevin DO Work Phone: [facility] 11-03-2024 15:58-0400 Systolic blood pressure 120 mm[Hg] Tammy Kevin DO Work Phone: [facility] 10-20-2024 16:34-0400 Body weight 72.12 kg Mirtha Richardson [employer] Work Phone: [facility] 10-20-2024 16:34-0400 Diastolic blood pressure 74 mm[Hg] Mirtha Dylan [employer] Work Phone: [facility] 10-20-2024 16:34-0400 Systolic blood pressure 118 mm[Hg] Mirtha Dylan [employer] Work Phone: [facility] 08-18-2024 15:52-0500 Body weight 70.94 kg Imelda SIMMONS Work Phone: [facility] 08-18-2024 15:52-0500 Diastolic blood pressure 70 mm[Hg] Imelda SIMMONS Work Phone: [facility] 08-18-2024 15:52-0500 Systolic blood pressure 120 mm[Hg] Imelda SIMMONS Work Phone: [facility] 07-21-2024 16:07-0500 Body weight 69.31 kg Tammy Kevin DO Work Phone: [facility] 07-21-2024 16:07-0500 Diastolic blood pressure 72 mm[Hg] Tammy Kevin DO Work Phone: [facility] 07-21-2024 16:07-0500 Systolic blood pressure 110 mm[Hg] Tammy Kevin DO Work Phone: [facility] 06-17-2024 15:43-0500 Body weight 68.04 kg Tammy Kevin DO Work Phone: [facility] 06-17-2024 15:43-0500 Diastolic blood pressure 72 mm[Hg] Tammy Kevin DO Work Phone: [facility] 06-17-2024 15:43-0500 Systolic blood pressure 118 mm[Hg] Tammy Kevin DO Work Phone: [facility] Encounters Encounter Date Encounter Type Care Provider Facility Start: 12-29-2024 End: 12-29-2024 flow sheet Tammy Kevin DO Work Phone: [facility] Comment on above: Third trimester preg artur ([facility]); 39 weeks gestation of ([facility]) Start: 12-29-2024 End: 12-29-2024 ambulatory TAMMY KEVIN Not Available Start: 12-29-2024 End: 12-29-2024 Bamboo flowsheet Tammy Kevin DO Work Phone: [facility] Start: 12-29-2024 End: 12-29-2024 Bamboo flowsheet Tammy Kevin DO Work Phone: [facility] Start: 12-22-2024 End: 12-22-2024 ambulatory TAMMY KEVIN Not Available Start: 12-22-2024 End: 12-22-2024 flow sheet Tammy Kevin DO Work Phone: [facility] Comment on above: Third trimester preg artur ([facility]); 37 weeks gestation of ([facility]); Acute cystitis without hematuria Start: 12-22-2024 End: 12-22-2024 Bamboo flowsheet Tammy Kevin DO Work Phone: [facility] Start: 12-22-2024 End: 12-22-2024 Bamboo flowsheet Tammy Kevin DO Work Phone: [facility] Start: 12-15-2024 End: 12-15-2024 ambulatory TAMMY KEVIN Not Available Start: 12-15-2024 End: 12-15-2024 flow sheet Tammy Kevin DO Work Phone: [facility] Comment on above: Third trimester preg artur ([facility]); 37 weeks gestation of ([facility]) Start: 12-15-2024 End: 12-15-2024 Bamboo flowsheet Tammy Kevin DO Work Phone: [facility] Start: 12-15-2024 End: 12-15-2024 Bamboo flowsheet Tammy Kevin DO Work Phone: [facility] Start: 12-08-2024 End: 12-08-2024 ambulatory IMELDA MOHAN Not Available Start: 12-08-2024 End: 12-08-2024 flow sheet Imelda SIMMONS Work Phone: [facility] Comment on above: 36 weeks gestation o f ; Third trimester Start: 12-08-2024 End: 12-08-2024 Bamboo flowsheet Imelda Mohan PA Work Phone: [facility] Start: 12-08-2024 End: 12-08-2024 Bamboo flowsheet Imelda SIMMONS Work Phone: [facility] Start: 12-01-2024 End: 12-01-2024 flow sheet Tammy Kevin DO Work Phone: [facility] Comment on above: Hematuria, unspecifi [...] flow sheet Tammy Kevin DO Work Phone: [facility] Comment on above: Third trimester preg artur; 31 weeks gestation of ; Urinary tract infection without hematuria, site unspecified; size inconsistent with dates Start: 11-03-2024 End: 11-03-2024 Bamboo flowsheet Tammy Kevin DO Work Phone: [facility] Start: 11-03-2024 End: 11-03-2024 Bamboo flowsheet Tammy Kevin DO Work Phone: [facility] Start: 10-20-2024 End: 10-20-2024 ambulatory MIRTHA RICHARDSON Not Available Start: 10-20-2024 End: 10-20-2024 flow sheet Mirtha Richardson [employer] Work Phone: [facility] Comment on above: Urinary tract infect ion without hematuria, site unspecified (Primary Dx); Third trimester ; 29 weeks gestation of Start: 10-20-2024 End: 10-20-2024 Bamboo flowsheet Mirtha Dylan [employer] Work Phone: [facility] Start: 10-20-2024 End: 10-20-2024 Bamboo flowsheet Mirtha Dylan [employer] Work Phone: [facility] Start: 10-12-2024 End: 10-12-2024 Clinisync Result Encounter Tammy Kevin DO Work Phone: [facility] Unsolicited Start: 10-12-2024 End: 10-12-2024 Clinisync Result Encounter Tammy Kevin DO Work Phone: [facility] Unsolicited Start: 09-23-2024 End: 09-23-2024 [...] encounter procedure Tammy Kevin DO Work Phone: [facility] Start: 07-21-2024 End: 07-21-2024 Periodic preventive [...] Date Procedure Procedure Detail Performing Clinician Start: 12-29-2024 Urnls dip stick/tabl et rgnt non-auto w/o micrscp Tammy Kevin DO Work Phone: Start: 12-22-2024 Urnls dip stick/tabl et rgnt non-auto w/o micrscp Imelda SIMMONS Work Phone: Start: 12-15-2024 Urnls dip stick/tabl et rgnt non-auto w/o micrscp Tammy Kevin DO Work Phone: Start: 12-08-2024 Urnls dip stick/tabl et rgnt [...] Treatment Date Care Activity Detail Author Start: 01-04-2025 End: 01-04-2025 Patient encounter procedure 01/04/2025 10:30 AM EDT Routine [facility] [address] [place] [address] Tammy Brown, DO [address] [place] [address] [facility] Start: 12-29-2024 End: 12-29-2024 Patient encounter procedure [facility] Comment on above: Arrived Start: 12-22-2024 End: 12-22-2024 Patient encounter procedure 12/22/2024 3:50 PM EDT Routine [facility] [address] [facility] [place] [id number] Tammy Brown, DO [address] [place] [address] [facility] Start: 12-15-2024 End: 12-15-2024 Patient encounter procedure 12/15/2024 3:30 PM EDT Routine [facility] [address] [facility] [place] [phone] Tammy Brown, DO [address] [place] [address] [facility] Start: 12-08-2024 End: 12-08-2024 Patient encounter procedure 12/08/2024 3:20 PM EDT Routine [facility] [address] [facility] [place] [id number] Imelda Mohan PA [address] [place] [address] [facility] Start: 12-08-2024 End: 12-08-2025 [...] PM EDT Routine [facility] [address] [place] [address] Tammy Brown, DO [address] [place] [address] [facility] Start: 11-03-2024 End: 03-06-2025 US for US OB follow up transabdominal approach Imaging Routine size inconsistent with dates Expected: 11/03/2024, Expires: 03/06/2025 [facility] Comment on above: Expected: 11/03/2024 , Expires: 03/06/2025 Start: 10-20-2024 End: 10-20-2024 Patient encounter procedure 10/20/2024 3:30 PM EDT Routine [facility] [address] [place] [address] Imelda Mohan PA [address] [place] [address] [facility] Start: 09-15-2024 End: 09-15-2024 Patient encounter procedure 09/15/2024 3:30 PM EDT Routine [facility] [address] [facility] [place] [address] Tammy Brown, DO [address] [place] [address] [facility] Start: 08-18-2024 End: 08-18-2024 Patient encounter procedure [facility] Comment on above: Arrived Start: 07-21-2024 End: 07-21-2024 Patient encounter procedure [facility] Comment on above: Arrived Start: 07-21-2024 End: 01-18-2025 Alpha fetoprotein, maternal Alpha fetoprotein, maternal Lab Routine Second trimester 16 weeks gestation of Expected: 07/21/2024 (Approximate), Expires: 01/18/2025 [facility] Comment on above: Expected: 07/21/2024 (Approximate), Expires: 01/18/2025 Start: 07-21-2024 End: 07-21-2025 US for US OB 14+ weeks anatomy scan Imaging Routine Screening, , for anatomic survey Expected: 07/21/2024, Expires: 07/21/2025 [facility] Comment on above: Expected: 07/21/2024 , Expires: 07/21/2025 Start: 06-17-2024 End: 06-17-2025 ABO/Rh ABO/Rh Lab Routine Missed menses , unspecified gestational age Expected: 06/17/2024 (Approximate), Expires: 06/17/2025 [facility] Comment on above: Expected: 06/17/2024 (Approximate), Expires: 06/17/2025 Start: 06-17-2024 End: 06-17-2025 Blood type and Indirect antibody screen panel - Blood Type and screen Lab Routine Missed menses , unspecified gestational age Expected: 06/17/2024 (Approximate), Expires: 06/17/2025 [facility] Work Phone: Comment on above: Expected: 06/17/2024 (Approximate), Expires: 06/17/2025 Start: 06-17-2024 End: 06-17-2025 Drugs of abuse panel - Urine by Screen method Rapid drug screen, urine Lab Routine , unspecified gestational age Encounter for supervision of normal first in first trimester Expected: 06/17/2024 (Approximate), Expires: 06/17/2025 [facility] Comment on above: Expected: 06/17/2024 (Approximate), Expires: 06/17/2025 Start: 06-17-2024 End: 06-17-2025 US Pelvis transvaginal US OB transvaginal Imaging Routine Missed menses Expected: 06/17/2024 (Approximate), Expires: 06/17/2025 [facility] Comment on above: Expected: 06/17/2024 (Approximate), Expires: 06/17/2025 Bacteria identified in Urine by Culture Urine culture Microbiology Routine Urinary tract infection without hematuria, site unspecified Ordered: 10/20/2024 [facility] Work Phone: Comment on above: Ordered: 10/20/2024 Bacteria identified in Urine by Culture Urine culture Microbiology Routine Urinary tract infection without hematuria, site unspecified Ordered: 11/03/2024 [facility] Work Phone: Comment on above: Ordered: 11/03/2024 Bacteria identified in Urine by Culture Urine culture Microbiology Routine Hematuria, unspecified type Ordered: 12/01/2024 [facility] Work Phone: Comment on above: Ordered: 12/01/2024 CBC W Auto Different ial panel - Blood CBC and differential Lab Routine Missed menses , unspecified gestational age Ordered: 06/17/2024 [facility] Comment on above: Ordered: 06/17/2024 CHLAMYDIA TRACHOMATI S (GENITO/STI) CHLAMYDIA TRACHOMATIS (GENITO/STI) Lab Routine STD exposure Ordered: 07/21/2024 [facility] Comment on above: Ordered: 07/21/2024 Cytology Cervical or vaginal smear or scraping study Pap Smear Pathology and Cytology Routine Well woman exam with routine gynecological exam Ordered: 07/21/2024 [facility] Comment on above: Ordered: 07/21/2024 Hemoglobin A1c/Hemoglobin.total in Blood Hemoglobin A1c Lab Routine Missed menses , unspecified gestational age Ordered: 06/17/2024 [facility] Comment on above: Ordered: 06/17/2024 Hepatitis B virus surface Ag [Presence] in Serum or Plasma by Immunoassay Hepatitis B surface antigen Lab Routine Missed menses , unspecified gestational age Ordered: 06/17/2024 [facility] Comment on above: Ordered: 06/17/2024 Hepatitis C virus Ab [Presence] in Serum or Plasma by Immunoassay Hepatitis C antibody Lab Routine Missed menses , unspecified gestational age Ordered: 06/17/2024 [facility] Comment on above: Ordered: 06/17/2024 HIV-1/HIV-2 antigen/antibody combination immunoassay HIV-1 and HIV-2 antibodies Lab Routine Missed menses , unspecified gestational age Ordered: 06/17/2024 [facility] Comment on above: Ordered: 06/17/2024 Neisseria gonorrhoea e DNA [Presence] in Unspecified specimen by SRINIVASAN with probe detection Neisseria gonorrhea DNA probe, direct Lab Routine STD exposure Ordered: 07/21/2024 [facility] Comment on above: Ordered: 07/21/2024 Reagin Ab [Presence] in Serum by RPR RPR Lab Routine Missed menses , unspecified gestational age Ordered: 06/17/2024 [facility] Comment on above: Ordered: 06/17/2024 Rubella antibody, IgG Rubella an tibody, IgG Lab Routine Missed menses , unspecified gestational age Ordered: 06/17/2024 [facility] Comment on above: Ordered: 06/17/2024 SURESWAB(R) ADVANCED VAGINITIS PLUS, TMA SURESWAB(R) ADVANCED VAGINITIS PLUS, TMA Pathology and Cytology Routine Vaginal discharge Ordered: 07/21/2024 [facility] Work Phone: Comment on above: Ordered: 07/21/2024 Payers Date Payer Category Payer Private Health Insurance [facility] [id number] 2023 Unknown [id number] 1996 Unknown [id number] .2.1258 1996 Unknown [id number] .2.1258 1996 Unknown [id number] [id number] .2.1258 1996 Unknown [id number] [id number] .2.1258 1996 Unknown [id number] 2.16.840.1.172387.3.579 .2.9 1996 Unknown [id number] [id number] .2.1258 1996 Unknown [id number] 2.16.840.1.832000.3.579 .2.1258 1996 Unknown [id number] [id number] .2.1258 1996 Unknown [id number] 2.16.840.1.462977.3.579 .2.1258 1996 Unknown [id number] [id number] .2.1258 1996 Unknown [id number] 2.16.840.1.746791.3.579 .2.1258 1996 Unknown [id number] 2.16.840.1.121454.3.579 .2.1258 1996 Unknown [id number] [id number] .2.1259 Social History Date Type Detail Facility Tobacco smoking stat [facility] Tobacco smoking consumption unknown [facility] Start: 04-11-2024 [facility] Start: 1995 Sex assigned at Female [facility] Start: 06-16-2024 Gender identity Identifies as female gender (finding) [facility] Start: 06-16-2024 Sexual orientation Heterosexual (fin ding) [facility] Clinical Notes 06-17-2024 to 12-29-2024 Mirtha Richardson NP - 12/29/2024 3:00 PM TROY Stokes - 12/22/2024 3:50 PM Julissa Richardson NP - 12/15/2024 3:40 PM Julissa Richardson NP - 12/08/2024 3:20 PM EDT Note Date & Type Note Facility 12-29-2024 History of Presen t illness Narrative Reason for Appointment: Patient ID: Vanessa Atkins is a 29 y.o. female who presents for Routine Visit Patient presents today for Return OB appointment. MEDICATIONS Current Outpatient Medications Medication Instructions nitrofurantoin (macrocrystal-monohydrate) (MACROBID) 100 mg, Oral, 2 times daily ProFe 180 mg, Daily ALLERGIES No Known [...] nursing note reviewed. Exam conducted with a metrology technician present. Vitals: There is no height or weight on file to calculate BMI. BP: 110/80 Patient's last menstrual period was 03/28/2024. ASSESSMENT & PLAN ICD-10-CM 1. Third trimester ([facility]) Z34.93 POCT urinalysis dipstick manually resulted 2. 39 weeks gestation of ([facility]) Z3A.39 Return OB: Patient presents today for a routine obstetrics appointment. Patient is currently 39w3d . Patient states she is doing well [...] Tammy Brown DO documented in this encounter [facility] 12-22-2024 History of Presen t illness Narrative Reason for Appointment: Patient ID: Vanessa Esparza is a 29 y.o. female who presents for Routine Visit Patient presents today for Return OB appointment. MEDICATIONS Current Outpatient Medications Medication Instructions nitrofurantoin (macrocrystal-monohydrate) (MACROBID) 100 mg, Oral, 2 times daily ProFe 180 mg, Daily ALLERGIES No Known [...] weight on file to calculate BMI. BP: Patient's last menstrual period was 03/28/2024. ASSESSMENT & PLAN ICD-10-CM 1. Third trimester ([facility]) Z34.93 POCT urinalysis dipstick manually resulted 2. 37 weeks gestation of ([facility]) Z3A.37 3. Acute cystitis without hematuria N30.00 nitrofurantoin, macrocrystal-monohydrate, (Macrobid) 100 MG capsule Return OB: Patient presents today for a routine obstetrics appointment. Patient is currently 38w4d . Patient states she is doing well [...] routine OB appointment. Documented by TROY Mi documented in this encounter [facility] 12-15-2024 History of Presen t illness Narrative Reason [...] nursing note reviewed. Exam conducted with a metrology technician present. Vitals: There is no height or weight on file to calculate BMI. BP: 120/70 Patient's last menstrual period was 03/28/2024. ASSESSMENT & PLAN ICD-10-CM 1. Third trimester ([facility]) Z34.93 POCT urinalysis dipstick manually resulted 2. 37 weeks gestation of ([facility]) Z3A.37 Return OB: Patient presents today for a routine obstetrics appointment. Patient is currently 37w3d . Patient states she is doing well [...] Tammy Brown DO documented in this encounter [facility] 12-08-2024 History of Presen t illness Narrative [...] nursing note reviewed. Exam conducted with a metrology technician present. Vitals: There is no height or [...] Mirtha Richardson NP documented in this encounter [facility] 12-01-2024 History of Presen t illness Narrative [...] nursing note reviewed. Exam conducted with a metrology technician present. Vitals: There is no height or [...] Tammy Brown DO documented in this encounter [facility] 11-17-2024 History of Presen t illness Narrative [...] of: TROY Mi documented in this encounter [facility] 11-11-2024 Telephone encount er Note Hi, this is Vanessa Esparza. I had a couple questions regarding a prescription. You can give me a call back. My number is [phone]. Thank you. OB: 32w5d [place]: 01/02/2025 Pt called in stating she ran out of her medication for her UTI. States feeling better but concerned as she has frequent uti's and starts to feel worse once stopping meds.. Pt states maintenance dose was discussed with dr. Brown. Pt aware that is currently out of office. Sent in [place] in the meantime. Please advise on maintenance dose for frequent UTI's [facility] 11-11-2024 Miscellaneous Notes Formattin g of this note might be different from the original. Hi, this is Vanessa Esparza. I had a couple questions regarding a prescription. You can give me a call back. My number is [phone]. Thank you. OB: 32w5d [place]IR[place]IE: 01/02/2025 Pt called in stating she ran out of her medication for her UTI. States feeling better but concerned as she has frequent uti's and starts to feel worse once stopping meds.. Pt states maintenance dose was discussed with dr. Brown. Pt aware that is currently out of office. Sent in [place] in the meantime. Please advise on maintenance dose for frequent UTI's documented in this encounter [facility] 11-03-2024 History of Presen t illness Narrative [...] Tammy Brown DO documented in this encounter [facility] 10-20-2024 History of Presen t illness Narrative [...] nursing note reviewed. Exam conducted with a metrology technician present. Vitals: There is no height or [...] Mirtha Richardson NP documented in this encounter [facility] 08-18-2024 History of Presen t illness Narrative [...] of: TROY Mi documented in this encounter [facility] 07-21-2024 History of Presen t illness Narrative [...] nursing note reviewed. Exam conducted with a metrology technician present. Vitals: There is no height or [...] Tammy Brown DO documented in this encounter [facility] 06-17-2024 History of Presen t illness Narrative [...] or undercooked meat, and stay away from [facility]. Patient has also been advised to [...] Whit Bourgeois MA documented in this encounter [facility] Evaluation note Diagnosis Missed menses 11 [...] [facility] Diagnosis Third trimester ([facility]) state, incidental 37 weeks gestation of ([facility]) [facility] Diagnosis Third trimester ([facility]) state, incidental 37 weeks gestation of ([facility]) Acute cystitis without hematuria [facility] Diagnosis Third trimester ([facility]) state, incidental 39 weeks gestation of ([facility]) documented in this encounter [facility] Summary [...] ized section and content) DATE CREATED AUTHOR 01/01/2025 [facility] FOR RECORDS PERTAINING TO PATIENTS WHO ARE [...] BE BASED ON THE PRIMARY CLINICAL RECORDS. [facility] [employer] provides no warranty or guarantee of the accuracy or completeness of information in this document."
[2025-01-02 11:22] LABS: Glucose Urine UA NEGATIVE (NEGATIVE)
[2025-01-02 11:33] LABS: Cast Seen? NONE SEEN #/LPF (NONE SEEN); Crystals Seen? None Seen #/HPF (None Seen); Urine Culture Indicated NO
[2025-01-02] MEDS: 0.9 % SODIUM CHLORIDE 1,000 ML 125 ML IV ×2 (13:04→22:52)
[2025-01-02 13:08] LABS: Cannabinoid Screen Urine NEGATIVE (NEGATIVE); Methamphetamines Screen Urine NEGATIVE (NEGATIVE); Tricyclic Antidepressant Urine NEGATIVE (NEGATIVE)
[2025-01-02 13:56] LABS: Hematocrit 30.8 % (36.0-48.0); Hemoglobin 10.0 g/dL (12.0-16.0); Mean Corpuscular HGB Conc 32.5 g/dL (29.9-35.2); Mean Corpuscular Hemoglobin 24.7 pg (26.7-34.0); Mean Corpuscular Volume 76.0 fL (81.0-99.0); Platelet Count 273 10^3/uL (150-450); Red Blood Count 4.05 10^6/uL (4.20-5.40); White Blood Count 17.7 10^3/uL (4.0-11.0)
[2025-01-02 16:33] LABS: Hematocrit 30.6 % (36.0-48.0); Hemoglobin 10.0 g/dL (12.0-16.0); Immature Granulocytes Abs Auto 0.06 10^3/uL (0.00-0.03); Immature Granulocytes Pct Auto 0.3 % (0.0-0.5); Lymphocytes Absolute Auto 1.3 10^3/uL (1.2-3.8); Mean Corpuscular HGB Conc 32.7 g/dL (29.9-35.2); Mean Corpuscular Hemoglobin 25.0 pg (26.7-34.0); Mean Corpuscular Volume 76.5 fL (81.0-99.0); Platelet Count 260 10^3/uL (150-450); Red Blood Count 4.00 10^6/uL (4.20-5.40); White Blood Count 17.9 10^3/uL (4.0-11.0)
[2025-01-02] MEDS: AMPICILLIN SODIUM 2,000 MG in 0.9 % SODIUM CHLORIDE 100 ML 200 MG IV (17:39)
--- NOTE | 2025-01-02 19:42 | W.PC.ACHO ---
Registration Status: ADM IN Primary Language: Mongolian Preferred Language: Mongolian report recieved at 1900. care assumed by this RN. Active Medications Generic Name Dose Route Start Last Admin Trade Name Freq PRN Reason Stop Dose Admin Carboprost Tromethamine 250 mcg 01/02/25 12:33 Carboprost Tromethamine 250 Mcg/Ml 1 Ml Vial IM 01/04/25 12:34 Q15M PRN Bleeding Diphenhydramine HCl 25 mg 01/02/25 12:37 Diphenhydramine Hcl 50 Mg/Ml Vial IV 01/03/25 12:38 Q6H PRN Itching Ephedrine Sulfate 5 mg 01/02/25 12:37 Ephedrine Sulfate 50 Mg/Ml Vial IV 01/03/25 12:38 Q5M PRN Blood Pressure - Low Fentanyl Citrate 100 mcg 01/02/25 12:37 Fentanyl Citrate/Pf 100 Mcg/2 Ml Vial EPIDURAL ONCE PRN epidural Fentanyl Citrate 100 mcg 01/02/25 12:37 Fentanyl Citrate/Pf 100 Mcg/2 Ml Vial EPIDURAL ONCE PRN epidural Tranexamic Acid 1,000 mg/ 110 mls @ 440 mls/hr 01/02/25 12:33 Sodium Chloride IV 01/04/25 12:34 ONCE PRN Uterine Bleeding Sodium Chloride 1,000 mls @ 125 mls/hr 01/02/25 13:00 01/02/25 13:04 Sodium Chloride 0.9% 1,000 Ml IV 125 mls/hr .Q8H ESPERANZA Administration Oxytocin/Sodium Chloride 20 units in 1,000 mls @ 125 mls/hr 01/02/25 12:33 Pitocin 20 Unit/1,000 Ml-Ns IV Q8H PRN POST DELIVERY Ropivacaine/Sodium Chloride 400 mg in 200 mls @ 6 mls/hr 01/02/25 12:45 Naropin 0.2% 400 Mg/200 Ml Bag EPIDURAL Q24H ESPERANZA Ampicillin 1,000 mg/ Sodium 50 mls @ 100 mls/hr 01/02/25 21:00 Chloride IV Q4H ESPERANZA Lidocaine 5 ml 01/02/25 12:33 Lidocaine Viscous 2% 15 Ml Solution TOPICAL 01/04/25 12:35 ONCE PRN Pain Lidocaine 1 ml 01/02/25 12:33 Lidocaine Hcl 1% 200 Mg/20 Ml Mdv INJ 01/04/25 12:35 ONCE PRN Pain Lidocaine 5 ml 01/02/25 12:37 Lidocaine Hcl 2% Pf 100 Mg/5 Ml Vial INJ 01/03/25 12:38 Q1H PRN epidural Methylergonovine Maleate 0.2 mg 01/02/25 12:33 Methylergonovine Maleate 0.2 Mg/Ml Ampule IM 01/04/25 12:34 ONCE PRN Uterine Contractility/Contract Methylergonovine Maleate 0.2 mg 01/02/25 12:33 Methylergonovine Maleate 0.2 Mg Tablet PO 01/04/25 12:34 Q4H PRN Uterine Contractility/Contract Misoprostol 600 mcg 01/02/25 12:33 Misoprostol 100 Mcg Tablet PO 01/04/25 12:34 ONCE PRN Uterine Bleeding Misoprostol 800 mcg 01/02/25 12:33 Misoprostol 100 Mcg Tablet SL 01/04/25 12:34 ONCE PRN Uterine Bleeding Misoprostol 1,000 mcg 01/02/25 12:33 Misoprostol 100 Mcg Tablet GA 01/04/25 12:34 ONCE PRN Uterine Bleeding Nalbuphine HCl 20 mg 01/02/25 12:33 Nalbuphine Hcl 10 Mg/Ml Ampule IM Q4H PRN Pain Scale 7-10 Naloxone HCl 0.4 mg 01/02/25 12:37 Naloxone Hcl 0.4 Mg/Ml Vial IV 01/03/25 12:38 ONCE PRN epidural Ondansetron HCl 4 mg 01/02/25 12:33 Ondansetron Pf 4 Mg/2 Ml Vial IV Q6H PRN Nausea And Vomiting Ondansetron HCl 4 mg 01/02/25 12:33 Ondansetron 4 Mg Rapdis Tablet SL Q6H PRN Nausea And Vomiting Oxytocin 10 unit 01/02/25 12:33 Oxytocin 10 Unit/Ml Vial IM 01/04/25 12:34 ONCE PRN bleeding Diet Category Date Time Status Regular Consistency Diet Diet 01/02/25 12:35 Active Consults Category Date Time Status Consult to Anesthesiology Routine Cons 01/02/25 Ordered IV Insertion/Site Date of IV Line Insertion [ 01/02/25 Short PIV (<1.75 in) 20g right Forearm] IV Insertion Time [Short PIV ( 12:45 <1.75 in) 20g right Forearm] Neurology Patient orientation (short person,place,time,situation list) Respiratory Oxygen Delivery Method Room Air
--- NOTE | 2025-01-02 20:15 | PM.OBHP ---
OB - H&P: HPI History of Present Illness Chief complaint: 40 WKS CONTRACTIONS R/O LABOR : 1 Para: 0 Narrative: pt admitted for probable SROM and irregular contractions. History of Present Dating criteria: LMP confirmed by 2nd trimester US care: good care Ultrasounds: normal mid trimester US Medical complications OB: none Labs Blood type: AB (-) negative Rubella: immune RPR/VDLR: nonreactive GBS status: negative HBsAG: negative Review of Systems ROS Status of ROS: 10 or more systems reviewed and unremarkable except as noted in history and below Meds Home Medications and Allergies Allergies Allergy/AdvReac Type Severity Reaction Status Date / Time No Known Drug Allergies Allergy Verified 01/02/25 20:17 Exam Constitutional Vital Signs, click to edit/add: Last Vital Signs Temp 97.3 F L 01/02/25 19:15 Pulse 89 01/02/25 19:17 Resp 16 01/02/25 19:15 BP 103/58 01/02/25 19:17 O2 Del Method Room Air 01/02/25 14:06 General appearance: cooperative Orientation/consciousness: Yes awake Chest Common normals: inspection of chest normal Respiratory Common normals: normal respiratory effort Cardio Common normals: regular rate and regular rhythm Speculum exam - cervix: abnormal cervical discharge (bloody mucous) bloody Bimanual exam- vagina & uterus: uterus non-tender Manual OB Exam: dilated (1-2cm) 1 cm, effaced (70%) and station -2 Amniotic Fluid: no fluid Other: amnisure was positive Extremity Common normals: normal to inspection, no calf tenderness and no pedal edema General: normal exam except as noted Results Labs Labs: Short CBC 01/02/25 01/02/25 01/02/25 Range/Units 12:48 12:48 12:48 WBC 17.7 H 17.9 H (4.0-11.0) 10^3/uL Hgb 10.0 L 10.0 L (12.0-16.0) g/dL Hct 30.8 L (36.0-48.0) % Plt Count (150-450) 10^3/uL 01/02/25 01/02/25 Range/Units 12:48 12:48 WBC (4.0-11.0) 10^3/uL Hgb (12.0-16.0) g/dL Hct 30.6 L (36.0-48.0) % Plt Count 273 260 (150-450) 10^3/uL Urine 01/02/25 Range/Units 11:08 Urine Color Yellow (YELLOW) Urine Clarity Clear (CLEAR) Urine pH 7.5 (5.0-9.0) Ur Specific [place] 1.015 (1.005-1.025) Urine Protein Negative (NEG/TRACE) mg/dL Urine Glucose (UA) Negative (NEGATIVE) mg/dL OB - A/P Assessment and Plan (1) Term : Plan pt with presumed SROM uncertain date and time. Early labor and minimal change after observation. NST reactive category one with occasional variables. WBC and neutrophils elevated. and will start prophylactic atbx due to possible prolonged rupture. GBS is negative. has had recent UTI. Admit for labor management and augment if indicated
[2025-01-02] MEDS: AMPICILLIN SODIUM 1,000 MG in 0.9 % SODIUM CHLORIDE 50 ML 100 MG IV (21:17)
[2025-01-03] VITALS (45 sets, daily range): BP systolic 85–148; BP diastolic 48–82; PULSE 67–105; TEMP 36.4–37.4
[2025-01-03] MEDS: 0.9 % SODIUM CHLORIDE 1,000 ML 1000 ML IV (01:41)
[2025-01-03] MEDS: AMPICILLIN SODIUM 1,000 MG in 0.9 % SODIUM CHLORIDE 50 ML 100 MG IV ×3 (02:06→10:01)
[2025-01-03] MEDS: ROPIVACAINE HCL/PF 400 MG/200 ML PREMIX 9 MG EPIDURAL (02:34)
[2025-01-03] MEDS: 0.9 % SODIUM CHLORIDE 1,000 ML 125 ML IV (04:11)
--- NOTE | 2025-01-03 07:43 | PM.OBPNL ---
Pain Control Pain control: epidural Pelvic Exam Dilation (cm): 5 Effacement (%): 90 Contractions Monitor mode: External Contraction frequency: 3 Contraction duration: 45 Contraction pattern: Regular Contraction intensity: Moderate station: +1 Amniotic membrane status: Ruptured status: Category II (intermittent late decelerations, good variability, now category one) Assessment and Plan Assessment: active labor Plan: continuous present management (discussed possible c/s if late decels recur and variability decreases. Pt is distraught but understands plan and reason)
--- NOTE | 2025-01-03 08:30 | W.PC.ACHO ---
Registration Status: ADM IN Primary Language: Vietnamese Preferred Language: Vietnamese Report given to Quan DELACRUZ at 0700. Care relinquished. Active Medications Generic Name Dose Route Start Last Admin Trade Name Martín PRN Reason Stop Dose Admin Carboprost Tromethamine 250 mcg 01/02/25 12:33 Carboprost Tromethamine 250 Mcg/Ml 1 Ml Vial IM 01/04/25 12:34 Q15M PRN Bleeding Diphenhydramine HCl 25 mg 01/02/25 12:37 Diphenhydramine Hcl 50 Mg/Ml Vial IV 01/03/25 12:38 Q6H PRN Itching Ephedrine Sulfate 5 mg 01/02/25 12:37 Ephedrine Sulfate 50 Mg/Ml Vial IV 01/03/25 12:38 Q5M PRN Blood Pressure - Low Fentanyl Citrate 100 mcg 01/02/25 12:37 Fentanyl Citrate/Pf 100 Mcg/2 Ml Vial EPIDURAL ONCE PRN epidural Fentanyl Citrate 100 mcg 01/02/25 12:37 Fentanyl Citrate/Pf 100 Mcg/2 Ml Vial EPIDURAL ONCE PRN epidural Tranexamic Acid 1,000 mg/ 110 mls @ 440 mls/hr 01/02/25 12:33 Sodium Chloride IV 01/04/25 12:34 ONCE PRN Uterine Bleeding Sodium Chloride 1,000 mls @ 125 mls/hr 01/02/25 13:00 01/03/25 06:34 Sodium Chloride 0.9% 1,000 Ml IV 999 mls/hr .Q8H ESPERANZA Infusion Oxytocin/Sodium Chloride 20 units in 1,000 mls @ 125 mls/hr 01/02/25 12:33 Pitocin 20 Unit/1,000 Ml-Ns IV Q8H PRN POST DELIVERY Ropivacaine/Sodium Chloride 400 mg in 200 mls @ 6 mls/hr 01/02/25 12:45 01/03/25 02:34 Naropin 0.2% 400 Mg/200 Ml Bag EPIDURAL 9 mls/hr Q24H ESPERANZA Administration Ampicillin 1,000 mg/ Sodium 50 mls @ 100 mls/hr 01/02/25 21:00 01/03/25 06:24 Chloride IV 100 mls/hr Q4H ESPERANZA Administration Lidocaine 5 ml 01/02/25 12:33 Lidocaine Viscous 2% 15 Ml Solution TOPICAL 01/04/25 12:35 ONCE PRN Pain Lidocaine 1 ml 01/02/25 12:33 Lidocaine Hcl 1% 200 Mg/20 Ml Mdv INJ 01/04/25 12:35 ONCE PRN Pain Lidocaine 5 ml 01/02/25 12:37 Lidocaine Hcl 2% Pf 100 Mg/5 Ml Vial INJ 01/03/25 12:38 Q1H PRN epidural Methylergonovine Maleate 0.2 mg 01/02/25 12:33 Methylergonovine Maleate 0.2 Mg/Ml Ampule IM 01/04/25 12:34 ONCE PRN Uterine Contractility/Contract Methylergonovine Maleate 0.2 mg 01/02/25 12:33 Methylergonovine Maleate 0.2 Mg Tablet PO 01/04/25 12:34 Q4H PRN Uterine Contractility/Contract Misoprostol 600 mcg 01/02/25 12:33 Misoprostol 100 Mcg Tablet PO 01/04/25 12:34 ONCE PRN Uterine Bleeding Misoprostol 800 mcg 01/02/25 12:33 Misoprostol 100 Mcg Tablet SL 01/04/25 12:34 ONCE PRN Uterine Bleeding Misoprostol 1,000 mcg 01/02/25 12:33 Misoprostol 100 Mcg Tablet DC 01/04/25 12:34 ONCE PRN Uterine Bleeding Nalbuphine HCl 20 mg 01/02/25 12:33 Nalbuphine Hcl 10 Mg/Ml Ampule IM Q4H PRN Pain Scale 7-10 Nalbuphine HCl 10 mg 01/02/25 22:36 01/02/25 22:47 Nalbuphine Hcl 10 Mg/Ml Ampule IV 10 mg Q3H PRN Administration Pain Naloxone HCl 0.4 mg 01/02/25 12:37 Naloxone Hcl 0.4 Mg/Ml Vial IV 01/03/25 12:38 ONCE PRN epidural Ondansetron HCl 4 mg 01/02/25 12:33 Ondansetron Pf 4 Mg/2 Ml Vial IV Q6H PRN Nausea And Vomiting Ondansetron HCl 4 mg 01/02/25 12:33 Ondansetron 4 Mg Rapdis Tablet SL Q6H PRN Nausea And Vomiting Oxytocin 10 unit 01/02/25 12:33 Oxytocin 10 Unit/Ml Vial IM 01/04/25 12:34 ONCE PRN bleeding Diet Category Date Time Status Regular Consistency Diet Diet 01/02/25 12:35 Active IV Insertion/Site Date of IV Line Insertion [ 01/02/25 Short PIV (<1.75 in) 20g right Forearm] IV Insertion Time [Short PIV ( 12:45 <1.75 in) 20g right Forearm] Neurology Patient orientation (short person,place,time,situation list) Respiratory Oxygen Delivery Method Room Air
[2025-01-03] MEDS: 0.9 % SODIUM CHLORIDE 1,000 ML 999 ML IV (10:02)
--- NOTE | 2025-01-03 13:33 | PM.OBPRCVD ---
Procedure Intrapartal events: None Induction method: none Delivery monitor: external FHT and external uterine Route of delivery: Episiotomy Description: none L&D Laceration Description: none Estimated blood loss (mL): 200 Anesthesia type: Epidural Disposition: PACU Delivery date: 01/03/25 Gender: male presentation: vertex Placental delivery description: Spontaneous cord description: 3 Vessels
[2025-01-03] MEDS: OXYTOCIN/0.9 % SODIUM CHLORIDE 20 UNITS/1,000 ML PLAST..BAG 125 UNIT IV (14:21)
[2025-01-03] MEDS: IBUPROFEN 600 MG TABLET PO ×2 (15:02→23:47)
[2025-01-03] MEDS: ACETAMINOPHEN 325 MG TABLET 650 MG PO (19:37)
[2025-01-04] MEDS: IBUPROFEN 600 MG TABLET PO ×3 (06:44→22:26)
[2025-01-04 06:49] LABS: Hematocrit 27.9 % (36.0-48.0); Hemoglobin 8.7 g/dL (12.0-16.0); Immature Granulocytes Abs Auto 0.12 10^3/uL (0.00-0.03); Immature Granulocytes Pct Auto 0.6 % (0.0-0.5); Lymphocytes Absolute Auto 2.2 10^3/uL (1.2-3.8); Mean Corpuscular HGB Conc 31.2 g/dL (29.9-35.2); Mean Corpuscular Hemoglobin 24.3 pg (26.7-34.0); Mean Corpuscular Volume 77.9 fL (81.0-99.0); Platelet Count 261 10^3/uL (150-450); Red Blood Count 3.58 10^6/uL (4.20-5.40); White Blood Count 21.1 10^3/uL (4.0-11.0)
[2025-01-04 08:00] VITALS: TEMP 36.5
[2025-01-04 08:01] VITALS: BP 116/64; PULSE 72
--- NOTE | 2025-01-04 09:02 | PM.OBPN ---
OB - PN: Subj Subjective Patient comments: no complaints [place] status: doing well feeding status: exclusively bottle feeding Exam Constitutional Vital Signs, click to edit/add: Last Vital Signs Temp 97.7 F 01/04/25 08:00 Pulse 72 01/04/25 08:01 Resp 16 01/04/25 08:00 BP 116/64 01/04/25 08:01 O2 Del Method Room Air 01/04/25 08:00 Documenting provider has reviewed patient's vital signs: yes Common normals: no apparent distress General appearance: cooperative Orientation/consciousness: Yes awake, Yes oriented to person, Yes oriented to place and Yes oriented to time HENMT Common normals: normocephalic Eye Common normals: EOMs intact bilaterally General eye: normal appearance of both eyes Neck & C-Spine Common normals: full ROM and no lymphadenopathy General: normal visual inspection Lymph Lymphatic: no lymphadenopathy noted Chest Common normals: inspection of chest normal Respiratory Common normals: normal respiratory effort, no retractions, no use of accessory muscles and clear to auscultation bilaterally Effort & inspection: able to speak in complete sentences Auscultation: clear to auscultation bilaterally Cardio Common normals: regular rate and regular rhythm Rate: regular rate Rhythm: regular rhythm GI Common normals: Normal to inspection, nondistended, normoactive bowel sounds present, soft to palpation and non-tender Inspection: normal to inspection Auscultation: normoactive bowel sounds Palpation: soft Common normals: no CVA tenderness Back & Pelvis Common normals: no CVA tenderness Extremity Common normals: normal to inspection and full ROM Neuro Common normals: oriented x3 Sensorium/orientation: awake, alert, oriented to person, oriented to place and oriented to time Psych Common normals: mental status grossly normal, thought process normal, cooperative, affect normal, speech normal, activity/motor behavior normal, denies hallucinations, denies homicidal ideation and denies suicidal ideation Appearance: grossly normal Attitude: calm Activity/motor behavior: appropriate eye contact Speech: normal speech Results Labs Labs: Short CBC 01/04/25 Range/Units 06:38 WBC 21.1 H (4.0-11.0) 10^3/uL Hgb 8.7 L (12.0-16.0) g/dL Hct 27.9 L (36.0-48.0) % Plt Count 261 (150-450) 10^3/uL Urinary Catheter Management Urinary Catheter Management Urethral: Cath placed during this visit: yes, but has since been removed by the nurse Removal date: 01/03/25 Removal time: 12:16 OB - PN: A/P Assessment and Plan (1) Term : Plan - Vaginal Delivery day: 1 Plan: routine care Time Spent with Patient Time: Total time spent is greater than 50% in coordination of care (as documented) at patient's floor/unit and/or counseling patient: Total time spent with greater than 50% in coordination of care (as documented) at patient's floor/unit and/or counseling patient: less than 15 minutes
[2025-01-04] MEDS: RHO(D) IMMUNE GLOBULIN 1,500 UNIT SYRINGE 1500 UNIT IV (10:49)
[2025-01-04 16:50] VITALS: TEMP 36.3
[2025-01-04 17:01] VITALS: BP 114/71; PULSE 81
--- NOTE | 2025-01-04 19:06 | W.PC.ACHO ---
Registration Status: ADM IN Primary Language: Belizean Preferred Language: Belizean report given at 1910. care relinquished. Active Medications Generic Name Dose Route Start Last Admin Trade Name Martín PRN Reason Stop Dose Admin Acetaminophen 650 mg 01/03/25 13:35 01/03/25 19:37 Acetaminophen 325 Mg Tablet PO 650 mg Q6H PRN Administration Mild Pain Al Hydroxide/Mg Hydroxide 2,400 mg 01/03/25 13:35 Magnesium Hydroxide 2,400 Mg/10 Ml Oral.Susp PO Q6H PRN Dyspepsia Benzocaine/Menthol 1 applic 01/03/25 13:35 Benzocaine/Menthol 85 Gram [place] Bottle TOPICAL Q2H PRN Pain Diphtheria/Pertussis/Tetanus Vacc 0.5 ml 01/05/25 09:00 Adacel Diph,Pertuss(Acell),Tet Vac/Pf 0.5 Ml Adult Syringe IM 01/05/25 09:01 .ONCE ONE Docusate Sodium 100 mg 01/04/25 09:00 01/04/25 10:52 Docusate Sodium 100 Mg Capsule PO Not Given BID ESPERANZA Sodium Chloride 1,000 mls @ 125 mls/hr 01/02/25 13:00 01/03/25 13:24 Sodium Chloride 0.9% 1,000 Ml IV Infused .Q8H ESPERANZA Infusion Ibuprofen 600 mg 01/03/25 13:35 01/04/25 15:10 Ibuprofen 600 Mg Tablet PO 600 mg Q6H PRN Administration Moderate Pain Measles/Mumps/Rubella Vaccine Live 0.5 ml 01/05/25 09:00 Measles,Mumps,Rubella Vacc/Pf 0.5 Ml Vial SQ 01/05/25 09:01 .ONCE ONE Ondansetron HCl 4 mg 01/02/25 12:33 Ondansetron Pf 4 Mg/2 Ml Vial IV Q6H PRN Nausea And Vomiting Ondansetron HCl 4 mg 01/02/25 12:33 Ondansetron 4 Mg Rapdis Tablet SL Q6H PRN Nausea And Vomiting Senna 17.2 mg 01/03/25 20:00 Sennosides 8.6 Mg Tablet PO QHS PRN Constipation Simethicone 80 mg 01/03/25 13:35 Simethicone 80 Mg Tab.Chew PO QID PRN Abdominal Distention Temazepam 15 mg 01/03/25 13:35 Temazepam 15 Mg Capsule PO QHS PRN Sleep Witch Claudette/Glycerin 1 pad 01/03/25 13:35 Glycerin/Witch Claudette Pads TOPICAL Q2H PRN Pain Respiratory Oxygen Delivery Method Room Air Oxygen Delivery Method Room Air Oxygen Delivery Method Room Air Oxygen Delivery Method Room Air Cardiology Heart Sounds Regular,Strong Heart Sounds Regular,Strong Heart Sounds Regular,Strong Bowels Bowel Pattern No Bowel Movement Bowel Pattern No Bowel Movement Renal Bladder Pattern Continent Bladder Pattern Continent Bladder Pattern Continent Catheter Date Urinary Catheter Removed 01/03/25 [Urethral] Time Urinary Catheter 12:16 Discontinued [Urethral]
[2025-01-04] MEDS: DOCUSATE SODIUM 100 MG CAPSULE PO (22:26)
[2025-01-04 22:31] VITALS: BP 112/77; PULSE 54
[2025-01-04 23:14] VITALS: BP 112/77; PULSE 54; TEMP 36.7
[2025-01-05] MEDS: IBUPROFEN 600 MG TABLET PO ×2 (06:17→12:35)
--- NOTE | 2025-01-05 07:47 | PM.OBPN ---
OB - PN: Subj Subjective Patient comments: no complaints and pain well controlled [place] status: doing well Exam Constitutional Vital Signs, click to edit/add: Last Vital Signs Temp 98.1 F 01/04/25 23:14 Pulse 54 L 01/04/25 23:14 Resp 16 01/04/25 23:14 BP 112/77 01/04/25 23:14 O2 Del Method Room Air 01/04/25 23:14 Documenting provider has reviewed patient's vital signs: yes Common normals: no apparent distress Respiratory Common normals: clear to auscultation bilaterally Cardio Common normals: regular rate and regular rhythm GI Common normals: Normal to inspection, nondistended, normoactive bowel sounds present Extremity Common normals: no clubbing, cyanosis or edema and no calf tenderness Urinary Catheter Management Urinary Catheter Management Urethral: Cath placed during this visit: yes, but has since been removed by the nurse Removal date: 01/03/25 Removal time: 12:16 OB - PN: A/P Assessment and Plan (1) Term : Plan - Vaginal Delivery day: 2 Plan: routine care, discharge home and follow up 6 weeks Time Spent with Patient Time: Total time spent is greater than 50% in coordination of care (as documented) at patient's floor/unit and/or counseling patient: Total time spent with greater than 50% in coordination of care (as documented) at patient's floor/unit and/or counseling patient: less than 15 minutes
[2025-01-05 08:40] VITALS: TEMP 36.6
[2025-01-05] MEDS: DOCUSATE SODIUM 100 MG CAPSULE PO (08:40)
[2025-01-05 08:42] VITALS: BP 107/67; PULSE 71
== END 2025-01-05 13:00 | disposition home or self-care (01) | DRG 807 ==
PROVIDERS: Obstetrics & Gynecology; Admitting Provider Obstetrics & Gynecology; Visit Provider Obstetrics & Gynecology
DX: O26.893 Other specified pregnancy related conditions, third trimester (principal); Z37.0 Single live birth; Z67.31 Type AB blood, Rh negative; Z3A.40 40 weeks gestation of pregnancy; Z87.440 Personal history of urinary (tract) infections
CPT/HCPCS: 36415; 59050; 59410; 80307; 81001; 84112; 85025; 85027; 85461; 86850; 86900; 86901; J0290; J2300; J2791; J2795